=== PATIENT | female | born 1955 | race American Indian/Alaskan Native ===

== ENCOUNTER 2021-11-09 14:24 | Emergency (ER) | payer MEDICARE, OTHER ==
--- NOTE | 2021-11-09 16:14 | Emergency Department Report ---
ED Fall HPI - General Chief Complaint: Fall Stated Complaint: FALL/HYPERTENSION Time Seen by Provider: 11/09/21 15:51 Source: EMS Mode of arrival: Stretcher Limitations: No Limitations - History of Present Illness Initial Comments: 66-year-old female with history of hypertension today says she tripped and fall hit the back of her head. patient denies any loss of conscious. Complaining of laceration to back of head and mild headache. denies having any vomiting. 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: no Place Fall Occurred: street Loss of Consciousness: none Prolonged Down Time?: no Symptoms Prior to Fall: none Location: head Quality: aching Context: tripped/slipped Associated Symptoms: headache - Related Data Allergies Allergy/AdvReac Type Severity Reaction Status Date / Time No Known Allergies Allergy Verified 11/09/21 14:35 ED Review of Systems ROS: Stated complaint: FALL/HYPERTENSION Other details as noted in HPI Constitutional: no symptoms reported Eyes: as per HPI ENT: as per HPI Respiratory: no symptoms reported Cardiovascular: as per HPI Endocrine: no symptoms reported Gastrointestinal: as per HPI Genitourinary: as per HPI Musculoskeletal: as per HPI Skin: as per HPI Neurological: as per HPI Psychiatric: as per HPI Hematological/Lymphatic: as per HPI ED Past Medical Hx - Past Medical History Hx Hypertension: Yes Hx Seizures: Yes - Social History Smoking Status: Never Smoker Substance Use Type: None ED Physical Exam - General Limitations: No Limitations, Physical Limitation General appearance: alert, in no apparent distress - Head Head exam: Present: normocephalic - Eye Eye exam: Present: normal appearance, PERRL Pupils: Present: normal accommodation - ENT ENT exam: Present: normal exam, normal orophraynx, mucous membranes moist - Neck Neck exam: Present: normal inspection, full ROM. Absent: tenderness - Respiratory Respiratory exam: Present: normal lung sounds bilaterally - Cardiovascular Cardiovascular Exam: Present: regular rate, normal rhythm, normal heart sounds - GI/Abdominal GI/Abdominal exam: Present: soft. Absent: distended, tenderness, guarding - Extremities Exam Extremities exam: Present: normal inspection, full ROM - Back Exam Back exam: Present: normal inspection, full ROM - Neurological Exam Neurological exam: Present: alert, oriented X3, CN II-XII intact, normal gait. Absent: motor sensory deficit - Psychiatric Psychiatric exam: Present: normal affect - Skin Skin exam: Present: warm, dry ED Course Vital Signs 11/09/21 11/09/21 11/09/21 14:30 15:00 15:15 Temperature 98.7 F Pulse Rate 100 H 95 H 94 H Respiratory 18 18 12 Rate Blood Pressure 212/146 Blood Pressure 174/138 212/146 [Left] O2 Sat by Pulse 100 99 98 Oximetry 11/09/21 11/09/21 11/09/21 15:30 15:45 16:00 Temperature Pulse Rate 93 H 98 H 100 H Respiratory 14 15 12 Rate Blood Pressure 212/146 194/137 194/137 Blood Pressure [Left] O2 Sat by Pulse 99 Oximetry 11/09/21 11/09/21 11/09/21 16:15 16:38 16:46 Temperature Pulse Rate 100 H 98 H 98 H Respiratory 13 12 12 Rate Blood Pressure 181/139 181/139 181/139 Blood Pressure [Left] O2 Sat by Pulse Oximetry 11/09/21 11/09/21 11/09/21 17:00 18:12 18:15 Temperature Pulse Rate 124 H 114 H 113 H Respiratory 23 14 15 Rate Blood Pressure 181/139 189/144 156/120 Blood Pressure [Left] O2 Sat by Pulse 100 97 Oximetry 11/09/21 19:28 Temperature 98.7 F Pulse Rate 76 Respiratory 20 Rate Blood Pressure Blood Pressure 145/73 [Left] O2 Sat by Pulse 100 Oximetry - Laceration /Wound Repair Head Wound Location: head Wound Length (cm): 4 Wound's Depth, Shape: superficial Wound Explored: no foreign body removed Irrigated w/ Saline (ccs): 10 Anesthesia: 1% Lidocaine Volume Anesthetic (ccs): 3 Wound Debrided: minimal ED Medical Decision Making - Medical Decision Making 67-year-old with history of dementia. Patient family is here and discussed findings of CAT scan. Critical care attestation.: If time is entered above; I have spent that time in minutes in the direct care of this critically ill patient, excluding procedure time. ED Disposition Clinical Impression: Minor head trauma, Occipital scalp laceration Disposition: 01 HOME / SELF CARE / HOMELESS Is pt being admited?: No Does the pt Need Aspirin: No Condition: Stable Instructions: Head Injury, Adult, Laceration Care, Adult, Sutures, Wu, or Adhesive Wound Closure, [id number] Referrals: PRIMARY CARE, [Primary Care Provider] - 3-5 Days
--- NOTE | 2021-11-09 17:00 | Cat Scan Report ---
CT BRAIN: 11/09/2021 INDICATION / CLINICAL INFORMATION: trauma. COMPARISON: None available. FINDINGS: BRAIN/INTRACRANIAL STRUCTURES: Unenhanced CT images of the brain were obtained. There is a 8mm focal area of slightly increased density located in the suprasellar region or anterior recess of the third ventricle. This is an unusual location for acute hemorrhage, and the possibility of soft tissue nodule/mass or aneurysm was be considered. There is a 3 mm hypodensity located along the inferior aspect of the choroidal fissure on the right, uncertain significance. It is unclear whet her this is separate incidental finding. Pronounced diffuse cerebral atrophy is present. Extensive chronic white matter hypoattenuation is not ed. There is evidence of old left frontal cortical ischemic injury as well as ischemic changes in the inferior aspect of the right occipital lobe. EXTRACRANIAL STRUCTURES: Unremarkable. IMPRESSION: 7 mm slightly hyperdense structure in the suprasellar region as described above. Depending on detail s of clinical circumstances and availability prior studies, further evaluation with unenhanced and en hanced MRI of the brain and MR angiography may be helpful. All CT scans at this location are performed using dose reduction to ALARA by means of automated expos ure control. Signer Name: Te Bynum MD Signed: 11/09/2021 4:55 PM Workstation Name: [id number]
[2021-11-09] MEDS ORDERED: HYDROGEN PEROXIDE 118 ML SOLUTION TP ONE (17:02)
[2021-11-09] MEDS ORDERED: LIDOCAINE 2%/EPINEPHRINE 1:100,000 VIAL (20 ML) INFILTRATI ONE (17:58)
[2021-11-09 19:29] VITALS: BP 145/73
== END 2021-11-09 19:32 | disposition home or self-care (01) ==
LOC: ED 14:24
DX: S01.01XA Laceration without foreign body of scalp, initial encounter (principal); S09.90XA Unspecified injury of head, initial encounter; I10 Essential (primary) hypertension; R56.9 Unspecified convulsions; W19.XXXA Unspecified fall, initial encounter; Y93.89 Activity, other specified; Y92.89 Other specified places as the place of occurrence of the external cause; Y99.8 Other external cause status
CPT/HCPCS: 12002; 70450; 99284; J3490; 99283

== ENCOUNTER 2021-11-09 22:51 | Inpatient (IN) | payer MEDICARE ==
--- NOTE | 2021-11-09 23:32 | Emergency Department Report ---
<LION MCGEE - Last Filed: 11/10/21 02:59> ED Altered Mental Status HPI - General Chief Complaint: Altered Mental Status Stated Complaint: UNRESPONDSIVE PUI?: No Time Seen by Provider: 11/09/21 23:07 - History of Present Illness Initial Comments: pt is 66 years old with history of HTN , here today for second visit after a fall earlier today , she was seen here by dr Self and head CT was negative and repaired the head lac and was sent home, , brought her here after wards because she appeared confused and altered 30 [employer], last known normal at 10 pm. pt was found to have facial droop and stroke was alerted - Related Data Home Medications Medication Instructions Recorded Confirmed Last Taken Aspirin [Aspirin BABY CHEW TAB] 81 mg PO DAILY 11/11/21 11/12/21 Unknown Divalproex ER [Depakote ER] 500 mg PO BID 11/11/21 11/12/21 Unknown Losartan [Cozaar] 100 mg PO QDAY 11/11/21 11/12/21 Unknown carvediloL [Coreg] 12.5 mg PO BID 11/11/21 11/12/21 Unknown Atorvastatin Calcium [Lipitor] 80 mg PO QDAY 11/12/21 11/12/21 Unknown Cyanocobalamin [Vitamin B-12] 1,000 mcg PO DAILY 11/12/21 11/12/21 Unknown Melatonin [Melatonin 10MG TAB] 10 mg PO QDAY 11/12/21 11/12/21 Unknown OLANzapine ZYDIS [ZyPREXA Zydis] 5 mg PO QPM 11/12/21 11/12/21 Unknown Thiamine [Vitamin B-1] 100 mg PO QDAY 11/12/21 11/12/21 Unknown Allergies Allergy/AdvReac Type Severity Reaction Status Date / Time No Known Allergies Allergy Verified 11/12/21 11:09 ED Review of Systems Comment: Unobtainable due to pts medical conditions ED Past Medical Hx - Medications Home Medications: Home Medications Medication Instructions Recorded Confirmed Last Taken Type Aspirin [Aspirin BABY CHEW TAB] 81 mg PO DAILY 11/11/21 11/12/21 Unknown History Divalproex ER [Depakote ER] 500 mg PO BID 11/11/21 11/12/21 Unknown History Losartan [Cozaar] 100 mg PO QDAY 11/11/21 11/12/21 Unknown History carvediloL [Coreg] 12.5 mg PO BID 11/11/21 11/12/21 Unknown History Atorvastatin Calcium [Lipitor] 80 mg PO QDAY 11/12/21 11/12/21 Unknown History Cyanocobalamin [Vitamin B-12] 1,000 mcg PO DAILY 11/12/21 11/12/21 Unknown History Melatonin [Melatonin 10MG TAB] 10 mg PO QDAY 11/12/21 11/12/21 Unknown History OLANzapine ZYDIS [ZyPREXA Zydis] 5 mg PO QPM 11/12/21 11/12/21 Unknown History Thiamine [Vitamin B-1] 100 mg PO QDAY 11/12/21 11/12/21 Unknown History ED Physical Exam - General General appearance: other (facial droop noted , non verbal , ) - Head Head exam: Present: other - Neurological Exam Neurological exam: Present: alert (awake but not alert ) - Expanded Neurological Exam Expanded Neurological exam: Present: innattentive, total aphasia Patient oriented to: Absent: person, place, time Speech: Present: total aphasia Best Eye Response ([place]): (3) open to voice Best Motor Response ([place]): (3) flexion to pain Best Verbal Response ([place]): (2) incomprehsible sounds Viral Total: 8 - Lab Data Result diagrams: 11/09/21 23:33 11/09/21 23:33 - EKG Data -: EKG Interpreted by Co EKG shows normal: sinus rhythm Interpretation: LVH - Radiology Data Radiology results: report reviewed, image reviewed - Medical Decision Making stroke alert on arrival , CT head showed hyperdense lesion , CTA negative for LVO, spoke with neurology who recommends TPA if we can rule out bleed, spoke with radiologist dayron , who asked for MRI to rule out bleed, spoke with lillian ( [phone] ) from radiology but no help desk technician tonight till 7 am tomorrow, re spoke with neurology dr Lakhani who said if we cannot rule out bleed won;t be able to give TPA NIHSS score of 18 ED Disposition Clinical Impression: AMS (altered mental status), CVA (cerebral vascular accident) Disposition: ADMITTED INPATIENT Condition: Critical <NORA SELF - Last Filed: 11/19/21 08:15> ED Altered Mental Status HPI - General Source: EMS Mode of arrival: Stretcher Limitations: Altered Mental Status - History of Present Illness Initial Comments: 66-year-old -[place] female who fell earlier during the day sustained scalp laceration which was repaired.. Patient discharged from the emergency approximately 2 hours ago went home and according to patient became more unresponsive responsive. He denies having fever chills or seizure. MD Complaint: altered mental status, decreased responsiveness -: Gradual Severity: moderate Consistency of Symptoms: getting worse Context: trauma Associated Symptoms: denies other symptoms, weakness ED Review of Systems ROS: Stated complaint: UNRESPONDSIVE Other details as noted in HPI Constitutional: no symptoms reported Eyes: as per HPI ENT: as per HPI Respiratory: no symptoms reported Cardiovascular: as per HPI Endocrine: no symptoms reported Gastrointestinal: as per HPI Genitourinary: as per HPI Skin: as per HPI Neurological: headache ED Past Medical Hx - Past Medical History Previous Medical History?: Yes Hx Hypertension: Yes Hx Seizures: Yes - Surgical History Past Surgical History?: No - Social History Smoking Status: Never Smoker Substance Use Type: None ED Physical Exam - General Limitations: Altered Mental Status General appearance: alert, lethargic - Head Head exam: Present: normocephalic, other (4 jarrett back of scalp) - Eye Eye exam: Present: normal appearance, PERRL Pupils: Present: normal accommodation - ENT ENT exam: Present: normal exam, normal orophraynx - Neck Neck exam: Present: normal inspection - Respiratory Respiratory exam: Present: normal lung sounds bilaterally, respiratory distress - Cardiovascular Cardiovascular Exam: Present: regular rate, normal rhythm - GI/Abdominal GI/Abdominal exam: Present: soft - Extremities Exam Extremities exam: Present: normal inspection, full ROM, normal capillary refill - Back Exam Back exam: Present: normal inspection - Neurological Exam Neurological exam: Present: alert, CN II-XII intact, other (Decreased movement right upper extremity minimal right facial droop.) - Psychiatric Psychiatric exam: Present: normal affect - Skin Skin exam: Present: warm ED Course Vital Signs 11/09/21 11/09/21 11/10/21 22:51 23:45 00:01 Temperature 98 F Pulse Rate 88 89 94 H Respiratory 18 14 19 Rate Blood Pressure 152/100 156/105 163/103 O2 Sat by Pulse 100 96 96 Oximetry 11/10/21 11/10/21 11/10/21 00:15 00:31 00:45 Temperature Pulse Rate 95 H 95 H 90 Respiratory 16 19 15 Rate Blood Pressure 162/108 148/100 144/99 O2 Sat by Pulse 97 99 97 Oximetry 11/10/21 11/10/21 11/10/21 01:00 01:15 01:31 Temperature Pulse Rate 89 88 95 H Respiratory 14 14 12 Rate Blood Pressure 143/93 144/87 144/109 O2 Sat by Pulse 97 97 98 Oximetry 11/10/21 11/10/21 11/10/21 01:45 02:00 02:15 Temperature Pulse Rate 100 H 93 H 94 H Respiratory 16 14 15 Rate Blood Pressure 158/113 146/85 149/98 O2 Sat by Pulse 98 99 99 Oximetry 11/10/21 11/10/21 11/10/21 02:30 02:45 03:01 Temperature Pulse Rate 92 H 87 85 Respiratory 12 12 12 Rate Blood Pressure 140/95 122/77 121/85 O2 Sat by Pulse 99 100 99 Oximetry 11/10/21 11/10/21 11/10/21 03:15 03:31 03:45 Temperature Pulse Rate 84 84 80 Respiratory 13 20 21 Rate Blood Pressure 113/72 123/73 119/87 O2 Sat by Pulse 98 99 100 Oximetry 11/10/21 11/10/21 04:00 04:31 Temperature Pulse Rate 86 84 Respiratory 12 12 Rate Blood Pressure 128/75 119/77 O2 Sat by Pulse 100 98 Oximetry - Lab Data Result diagrams: 11/19/21 05:16 11/19/21 05:16 Lab Results 11/09/21 11/09/21 11/09/21 Range/Units 23:33 23:33 23:33 WBC 9.3 (4.5-11.0) K/mm3 RBC 2.99 L (3.65-5.03) M/mm3 Hgb 9.3 L (10.1-14.3) gm/dl Hct 27.7 L (30.3-42.9) % MCV 93 (79-97) fl MCH 31 (28-32) pg MCHC 34 (30-34) % RDW 24.1 H (13.2-15.2) % Plt Count 166 (140-440) K/mm3 Lymph % (Auto) 29.3 (13.4-35.0) % [place] % (Auto) 8.0 H (0.0-7.3) % Eos % (Auto) 1.9 (0.0-4.3) % Baso % (Auto) 0.2 (0.0-1.8) % Lymph # (Auto) 2.7 (1.2-5.4) K/mm3 [place] # (Auto) 0.7 (0.0-0.8) K/mm3 Eos # (Auto) 0.2 (0.0-0.4) K/mm3 Baso # (Auto) 0.0 (0.0-0.1) K/mm3 Seg Neutrophils % 60.6 (40.0-70.0) % Seg Neutrophils # 5.7 (1.8-7.7) K/mm3 PT 15.3 H (12.2-14.9) Sec. INR 1.09 (0.87-1.13) APTT 26.4 (24.2-36.6) Sec. Thrombin Time 18.4 (15.1-19.6) Sec. Sodium 140 (137-145) mmol/L Potassium 4.1 (3.6-5.0) mmol/L Chloride 104.0 (98-107) mmol/L Carbon Dioxide 24 (22-30) mmol/L Anion Gap 16 mmol/L BUN 37 H (7-17) mg/dL Creatinine 1.1 (0.6-1.2) mg/dL Estimated GFR > 60 ml/min BUN/Creatinine Ratio 34 % Glucose 140 H (65-100) mg/dL Calcium 8.5 (8.4-10.2) mg/dL Total Bilirubin 0.20 (0.1-1.2) mg/dL AST 29 (5-40) units/L ALT 41 (7-56) units/L Alkaline Phosphatase 51 (35-129) units/L Total Creatine Kinase 73 (30-135) units/L CK-MB (CK-2) 3.0 (0.0-4.0) ng/mL CK-MB (CK-2) Rel Index 4.1 H (0-4) Troponin T < 0.010 (0.00-0.029) ng/mL Total Protein 5.9 L (6.3-8.2) g/dL Albumin 3.0 L (3.9-5) g/dL Albumin/Globulin Ratio 1.0 % Critical care attestation.: If time is entered above; I have spent that time in minutes in the direct care of this critically ill patient, excluding procedure time. ED Disposition Is pt being admited?: Yes Does the pt Need Aspirin: No
--- NOTE | 2021-11-09 23:48 | Cat Scan Report ---
CT HEAD WITHOUT CONTRAST INDICATION / CLINICAL INFORMATION: CODE STROKE, LKW 2HR AGO, RIGHT SIDE FACIAL DROPPING AND WEAKNESS, [id number]. TECHNIQUE: All CT scans at this location are performed using CT dose reduction for ALARA by means of automated e xposure control. COMPARISON: 11/09/2021 FINDINGS: There is a small focal area of increased hyperdensity located in the suprasellar region/anterior rece ss of the third ventricle. This area appears similar in size and appearance to prior examination. The re are diffuse areas of low-attenuation within the periventricular and central white matter with more extensive areas of low-attenuation within the right occipital lobe and left frontal lobe. Diffuse ce rebral atrophy with compensatory increase in ventricular size. ADDITIONAL FINDINGS: None. IMPRESSION: 1. Small focal area of hyperdensity within the suprasellar region appears similar size is unchanged s filemon prior examination earlier today at 4:00 PM. No new findings are seen. 2. Diffuse periventricular and central white matter areas of low-attenuation suggesting chronic small vessel disease. 3. Large areas of low-attenuation left frontal lobe, periventricular white matter and right occipital lobe. Given patient's symptoms of facial drooping findings are concerning for acute ischemic change. MRI with diffusion is recommended for further evaluation. MRI with diffusion is recommended to [facility] evaluate for acute on chronic ischemic change. Signer Name: Alexander Myrick MD Signed: 11/09/2021 11:44 PM Workstation Name: [id number]
[2021-11-09 23:55] LABS: Basophils % (Auto) 0.2 % (0.0-1.8); Eosinophils # (Auto) 0.2 K/mm3 (0.0-0.4); Eosinophils % (Auto) 1.9 % (0.0-4.3); Hematocrit 27.7 % (30.3-42.9); Hemoglobin 9.3 gm/dl (10.1-14.3); Lymphocytes # (Auto) 2.7 K/mm3 (1.2-5.4); Lymphocytes % (Auto) 29.3 % (13.4-35.0); Mean Corpuscular HGB Conc 34 % (30-34); Mean Corpuscular Volume 93 fl (79-97); Monocytes # (Auto) 0.7 K/mm3 (0.0-0.8); Platelet Count 166 K/mm3 (140-440); Red Blood Count 2.99 M/mm3 (3.65-5.03)
[2021-11-10 00:06] LABS: Red Cell Distribution Width 24.1 % (13.2-15.2)
--- NOTE | 2021-11-10 00:20 | Cat Scan Report ---
CTA HEAD AND NECK WITH CONTRAST HISTORY: Stroke COMPARISON: None. TECHNIQUE: All CT scans at this location are performed using CT dose reduction for ALARA by means of automated exposure control.. 3-D/MIP reformats postprocessed. Percentage stenosis is determined by d irect quantitative measurements of diseased internal carotid artery diameter compared with normal dis sarbjit internal carotid artery reference segments or by criteria similar to NASCET where applicable. FINDINGS: CTA HEAD: Intracranial vertebral arteries: Focal non-opacification in the right vertebral artery at the intracr anial entrance with reconstitution. Basilar artery: No significant abnormality. Posterior cerebral arteries: Multiple areas of flow-limiting stenosis in both GRAPHICS EDIT TECHNICIAN branches. There is also a 3 mm aneurysm at the junction of the left posterior communicating artery and the left GRAPHICS EDIT TECHNICIAN. Intracranial internal carotid arteries: Atherosclerotic plaque in both carotid siphons. Approximately 80% stenosis in both carotid siphons. Anterior cerebral arteries: Several focal high-grade stenoses without definite occlusion. Middle cerebral arteries: Multiple areas of high-grade stenosis seen in the bilateral M1 M2 segments. Small focal occlusion left in 3 branch, reference image 372 of series #2. Dural venous sinuses:Not optimally opacified. No significant abnormality. Additional findings: CTA NECK: Aortic arch: No significant abnormality. Cervical vertebral arteries: Left vertebral artery is developmental and dominant. Common carotid arteries: No significant abnormality. Cervical internal carotid arteries: Mild plaque without significant stenosis. Additional findings: None. IMPRESSION: 1. Multiple flow-limiting stenoses throughout the bilateral intracranial arterial branches. 2. Small focal occlusion of a left M3 branch with immediate reconstitution. 3. Small focal occlusion of the right vertebral artery at the intracranial entrance with immediate re constitution. 4. 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 CODE STROKE: Time of Communication (PROCESS ENVIRONMENTAL TECHNICIAN/CDT): 11:15 PM Licensed Practitioner Receiving Report: Dr. Self Signer Name: Bayron Arias MD Signed: 11/10/2021 12:16 AM Workstation Name: [id number]
--- NOTE | 2021-11-10 00:20 | XRay Report ---
CHEST 1 VIEW 11/09/2021 10:48 PM INDICATION / CLINICAL INFORMATION: sob. COMPARISON: None available. FINDINGS: SUPPORT DEVICES: None. HEART / MEDIASTINUM: No significant abnormality. LUNGS / PLEURA: Mild interstitial process in the right perihilar region extending to the right midlun g No pneumothorax. Signer Name: Alexander Myrick MD Signed: 11/10/2021 12:15 AM Workstation Name: [id number]
--- NOTE | 2021-11-10 00:20 | Cat Scan Report ---
CTA HEAD AND NECK WITH CONTRAST HISTORY: Stroke COMPARISON: None. TECHNIQUE: All CT scans at this location are performed using CT dose reduction for ALARA by means of automated exposure control.. 3-D/MIP reformats postprocessed. Percentage stenosis is determined by d irect quantitative measurements of diseased internal carotid artery diameter compared with normal dis sarbjit internal carotid artery reference segments or by criteria similar to NASCET where applicable. FINDINGS: CTA HEAD: Intracranial vertebral arteries: Focal non-opacification in the right vertebral artery at the intracr anial entrance with reconstitution. Basilar artery: No significant abnormality. Posterior cerebral arteries: Multiple areas of flow-limiting stenosis in both HVAC INSTRUCTOR branches. There is also a 3 mm aneurysm at the junction of the left posterior communicating artery and the left HVAC INSTRUCTOR. Intracranial internal carotid arteries: Atherosclerotic plaque in both carotid siphons. Approximately 80% stenosis in both carotid siphons. Anterior cerebral arteries: Several focal high-grade stenoses without definite occlusion. Middle cerebral arteries: Multiple areas of high-grade stenosis seen in the bilateral M1 M2 segments. Small focal occlusion left in 3 branch, reference image 372 of series #2. Dural venous sinuses:Not optimally opacified. No significant abnormality. Additional findings: CTA NECK: Aortic arch: No significant abnormality. Cervical vertebral arteries: Left vertebral artery is developmental and dominant. Common carotid arteries: No significant abnormality. Cervical internal carotid arteries: Mild plaque without significant stenosis. Additional findings: None. IMPRESSION: 1. Multiple flow-limiting stenoses throughout the bilateral intracranial arterial branches. 2. Small focal occlusion of a left M3 branch with immediate reconstitution. 3. Small focal occlusion of the right vertebral artery at the intracranial entrance with immediate re constitution. 4. 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 CODE STROKE: Time of Communication (TEXTILE SCREEN PRINTER/CDT): 11:15 PM Licensed Practitioner Receiving Report: Dr. Self Signer Name: Bayron Arias MD Signed: 11/10/2021 12:16 AM Workstation Name: [id number]
[2021-11-10 00:22] LABS: Alanine Aminotransferase 41 units/L (7-56); BUN/Creatinine Ratio 34; Blood Urea Nitrogen 37 mg/dL (7-17); Calcium 8.5 mg/dL (8.4-10.2); Hemolysis Index 2
[2021-11-10 00:41] LABS: INR 1.09 (0.87-1.13)
[2021-11-10 00:42] LABS: Partial Thromboplastin Time 26.4 Sec. (24.2-36.6); Thrombin Time 18.4 Sec. (15.1-19.6)
--- NOTE | 2021-11-10 00:57 | Consultation ---
History of Present Illness - Reason for Consult Consult date: 11/10/21 - History of Present Illness [facility] Consult Note # Demographics Consult Type: Acute Stroke Level 1 (0-4.5 hrs) Patient Location: Emergency Room First Name: DAMIEN Last Name: KARI Date of : 1955 Age: 66 Gender: Female Facility: [facility] Time of Initial Page ( Time): 11/10/2021, 00:32 Time of Return Call ( Time): 11/10/2021, 00:32 # HPI History: 66yo woman who was eating. She then had confusion, onset at around 10PM. She went limp and her right side is weaker than usual. She fell earlier and LOC episode this morning with head trauma. Possible Thrombolytic candidate: not on warfarin or NOACs no intracranial hemorrhage history no recent major surgery no known active major internal bleeding no known blood disorders # Scores Time of exam and NIHSS ( Time): 11/10/2021, 00:36 Level of Consciousness 1a: [3] = Responds only with reflex motor or unresponsive LOC Questions 1b: [2] = Answers neither correctly LOC Commands 1c: [2] = Performs neither correctly Best Gaze 2: [1] = Partial gaze palsy Visual 3: [0] = No visual loss Facial Palsy 4: [0] = Normal symmetrical movements Motor Arm Left 5a: [0] = No drift Motor Arm Right 5b: [2] = Some effort against gravity Motor Leg Left 6a: [0] = No drift Motor Leg Right 6b: [3] = No effort against gravity Limb Ataxia 7: [0] = Absent Sensory 8: [0] = Normal Best Language 9: [3] = Mute Dysarthria 10: [2] = Severe dysarthria Extinction and Inattention 11: [0] = No abnormality NIHSS Total: 18 # Exam Vitals: vital signs reviewed SBP: 148 DBP: 100 # PMH-FH-SH Past Medical History: hypertension # Data Head CT: no bleed preliminarily reviewed by me, please refer to radiology read for official reading CTA Head: high grade stenosis bilateral MCAs. left M3 occlusion # Assessment Impression: Ischemic Stroke (Acute) # Plan Thrombolytic/Intervention: IV Thrombolysis IF radiology feels confident there is no bleed on the CT head of the brain Thrombolytic Dosing: IV alteplase 0.9 mg/kg, max dose 90 mg; 10% of dose given over 1 minute IVP, remaining 90% given as infusion over 1 hour Intraarterial Exclusion: clot too distal Time IV Thrombolytic Recommended ( Time): 11/10/2021, 00:53 Target Blood Pressure: SBP < 180 DBP < 105 Labs: lipid panel Imaging: (urgency: routine): MRI Brain without contrast Diagnostic Test: echo without bubble study Therapy/Evaluation: NPO until swallow evaluation PT/OT evaluation speech/swallow consultation DVT Prophylaxis: SCD Thrombolytic Administration Recommendations: I have collected independent history specific to time last normal or last known well. We have collaborated with the ED provider and at this time, we have the most current timeline with the information that is available. BP goal< 180/105 for 24hrs post Thrombolytic administration Use Labetolol 10-20mg IV prn or Nicardipine gtt to maintain BP parameters No antiplatelets or anticoagulants for next 24 hrs unless indicated for emergent IA procedure or other life threatening situation ICU admission Call back if there is any decline in neurological condition Other: LDL < 70 telemetry monitoring I have discussed my recommendations with the referring provider Disposition: transfer to ICU # Demographics First Name: DAMIEN Last Name: KARI Facility: [facility] Medications and Allergies Allergies Allergy/AdvReac Type Severity Reaction Status Date / Time No Known Allergies Allergy Verified 11/09/21 14:35 Exam - Constitutional Vitals: Temp Pulse Resp BP Pulse Ox 98 F 88 18 152/100 100 11/09/21 22:51 11/09/21 22:51 11/09/21 22:51 11/09/21 22:51 11/09/21 22:51 Results - Labs CBC & Chem 7: 11/09/21 23:33 11/09/21 23:33 Labs: Abnormal lab results 11/09/21 11/09/21 11/09/21 Range/Units 23:33 23:33 23:33 RBC 2.99 L (3.65-5.03) M/mm3 Hgb 9.3 L (10.1-14.3) gm/dl Hct 27.7 L (30.3-42.9) % RDW 24.1 H (13.2-15.2) % Gem % (Auto) 8.0 H (0.0-7.3) % PT 15.3 H (12.2-14.9) Sec. BUN 37 H (7-17) mg/dL Glucose 140 H (65-100) mg/dL CK-MB (CK-2) Rel Index 4.1 H (0-4) Total Protein 5.9 L (6.3-8.2) g/dL Albumin 3.0 L (3.9-5) g/dL
[2021-11-10] MEDS ORDERED: ONDANSETRON 4 MG/2 ML INJ IV PRN (03:15)
[2021-11-10] MEDS ORDERED: MORPHINE 2 MG/1 ML INJ IV PRN (03:15)
[2021-11-10] MEDS ORDERED: MORPHINE 4 MG/1 ML INJ IV PRN (03:15)
[2021-11-10] MEDS ORDERED: ALBUTEROL 2.5 MG/3 ML NEBU IH PRN ×2 (03:15→10:37)
--- NOTE | 2021-11-10 03:24 | History and Physical Report ---
History of Present Illness Date of examination: 11/10/21 Date of admission: 11/10/21 Chief complaint: Altered mental status CVA History of present illness: 66-year-old -Thai female who fell earlier during the day sustained scalp laceration which was repaired. Patient discharged from the emergency approximately 2 hours ago went home and according to patient became more confusion and unresponsive responsive. pt was found to have facial droop and stroke was alerted CT scan of the head shows a small focal area of hyperdensity within the supras ellar region appears similar to the size is unchanged since. Examination. Diffuse periventricular and central white matter areas of low-attenuation suggesting chronic small vessel disease. Large areas of low-attenuation left frontal lobe, periventricular white matter and right occipital lobe. Given patient's symptoms of facial drooping findings are concerning for acute ischemic change CTA negative for LVO, spoke with neurology who recommends TPA if we can rule out bleed, spoke with radiologist dayron , who asked for MRI to rule out bleed, spoke with lillian ) from radiology but no wireless technician tonight till 7 am tomorrow, re spoke with neurology dr Lakhani who said if we cannot rule out bleed won;t be able to give TPA Past History Past Medical History: hypertension, seizures Past Surgical History: No surgical history Social history: no significant social history Family history: hypertension Medications and Allergies Allergies Allergy/AdvReac Type Severity Reaction Status Date / Time No Known Allergies Allergy Verified 11/09/21 14:35 Review of Systems All systems: negative Constitutional: other (Confusion, right facial droop ) Exam - Constitutional Vitals: Temp Pulse Resp BP Pulse Ox 98 F 95 H 12 144/109 98 11/09/21 22:51 11/10/21 01:31 11/10/21 01:31 11/10/21 01:31 11/10/21 01:31 General appearance: Present: no acute distress, well-nourished - EENT Eyes: Present: PERRL ENT: hearing intact, clear oral mucosa - Neck Neck: Present: supple, normal ROM - Respiratory Respiratory effort: normal Respiratory: bilateral: CTA - Cardiovascular Heart Sounds: Present: S1 & S2. Absent: rub, click - Extremities Extremities: pulses symmetrical, No edema Peripheral Pulses: within normal limits - Abdominal General gastrointestinal: Present: soft, non-tender, non-distended, normal bowel sounds Female genitourinary: Present: normal - Integumentary Integumentary: Present: clear, warm, dry - Musculoskeletal Musculoskeletal: gait normal, strength equal bilaterally - Neurologic Neurologic: CNII-XII intact, moves all extremities, other (Confusion, right facial droop) HEART Score - HEART Score Troponin: Troponin T < 0.010 ng/mL (0.00-0.029) 11/09/21:33 Results - Labs CBC & Chem 7: 11/09/21 23:33 11/09/21 23:33 Labs: Laboratory Last Values WBC 9.3 K/mm3 (4.5-11.0) 11/09/21 23: RBC 2.99 M/mm3 (3.65-5.03) L 11/09/21: Hgb 9.3 gm/dl (10.1-14.3) L 11/09/21 23: Hct 27.7 % (30.3-42.9) L 11/09/21 23: MCV 93 fl (79-97) 11/09/21 23: MCH 31 pg (28-32) 11/09/21 23: MCHC 34 % (30-34) 11/09/21 23: RDW 24.1 % (13.2-15.2) H 11/09/21 23:33 Plt Count 166 K/mm3 (140-440) 11/09/21 23:33 Lymph % (Auto) 29.3 % (13.4-35.0) 11/09/21 23: [place] % (Auto) 8.0 % (0.0-7.3) H 11/09/21 23:33 Eos % (Auto) 1.9 % (0.0-4.3) 11/09/21 23: Baso % (Auto) 0.2 % (0.0-1.8) 11/09/21 23: Lymph # (Auto) 2.7 K/mm3 (1.2-5.4) 11/09/21 23: [place] # (Auto) 0.7 K/mm3 (0.0-0.8) 11/09/21 23: Eos # (Auto) 0.2 K/mm3 (0.0-0.4) 11/09/21 23:33 Baso # (Auto) 0.0 K/mm3 (0.0-0.1) 11/09/21 23:33 Seg Neutrophils % 60.6 % (40.0-70.0) 11/09/21 23:33 Seg Neutrophils # 5.7 K/mm3 (1.8-7.7) 11/09/21 23:33 PT 15.3 Sec. (12.2-14.9) H 11/09/21 23:33 INR 1.09 (0.87-1.13) 11/09/21 23:33 APTT 26.4 Sec. (24.2-36.6) 11/09/21 23:33 Thrombin Time 18.4 Sec. (15.1-19.6) 11/09/21 23:33 Sodium 140 mmol/L (137-145) 11/09/21 23:33 Potassium 4.1 mmol/L (3.6-5.0) 11/09/21 23:33 Chloride 104.0 mmol/L (98-107) 11/09/21 23:33 Carbon Dioxide 24 mmol/L (22-30) 11/09/21 23:33 Anion Gap 16 mmol/L 11/09/21 23:33 BUN 37 mg/dL (7-17) H 11/09/21 23:33 Creatinine 1.1 mg/dL (0.6-1.2) 11/09/21 23:33 Estimated GFR > 60 ml/min 11/09/21 23:33 BUN/Creatinine Ratio 34 % 11/09/21 23:33 Glucose 140 mg/dL (65-100) H 11/09/21 23:33 Calcium 8.5 mg/dL (8.4-10.2) 11/09/21 23:33 Total Bilirubin 0.20 mg/dL (0.1-1.2) 11/09/21 23:33 AST 29 units/L (5-40) 11/09/21 23:33 ALT 41 units/L (7-56) 11/09/21 23:33 Alkaline Phosphatase 51 units/L (35-129) 11/09/21 23:33 Total Creatine Kinase 73 units/L (30-135) 11/09/21 23:33 CK-MB (CK-2) 3.0 ng/mL (0.0-4.0) 11/09/21 23:33 CK-MB (CK-2) Rel Index 4.1 (0-4) H 11/09/21 23:33 Troponin T < 0.010 ng/mL (0.00-0.029) 11/09/21 23:33 Total Protein 5.9 g/dL (6.3-8.2) L 11/09/21 23:33 Albumin 3.0 g/dL (3.9-5) L 11/09/21 23:33 Albumin/Globulin Ratio 1.0 % 11/09/21 23:33 - Imaging and Cardiology CT Scan - head: report reviewed Assessment and Plan VTE prophylaxis?: Mechanical Plan of care discussed with patient/family: Yes - Patient Problems (1) CVA (cerebral vascular accident) Current Visit: Yes Status: Acute Plan to address problem: Admit the patient to the medical telemetry. Lipitor 40 mg p.o. daily. Will hold of the aspirin until MRI of the brain is done. MRI of the brain with and without contrast. MRI of the brain and neck with and without contrast. Neurology evaluation. Echocardiogram. PT OT speech evaluation (2) Hypertension Current Visit: Yes Status: Acute Plan to address problem: Labetalol 10 mg IV every 6 hours as needed. We continue the home medication (3) Seizure Current Visit: Yes Status: Acute Plan to address problem: We will continue the home seizure medication. Neurology evaluation. MRI of the brain with and without contrast (4) Minor head trauma Current Visit: No Status: Acute Plan to address problem: Patient is a fall earlier today. We will do a MRI of the brain. Neurology evaluation. We will monitor the patient closely (5) Occipital scalp laceration Current Visit: No Status: Acute Plan to address problem: Patient occipital scalp laceration is repaired by the ER physician. We will monitor the patient closely (6) Metabolic encephalopathy Current Visit: Yes Status: Acute Plan to address problem: Most likely secondary to CVA and fall.Lipitor 40 mg p.o. daily. Will hold of the aspirin until MRI of the brain is done. MRI of the brain with and without contrast. MRI of the brain and neck with and without contrast. Neurology evaluation. Echocardiogram. PT OT speech evaluation (7) DVT prophylaxis Current Visit: Yes Status: Acute Plan to address problem: SCD for DVT prophylaxis. Pepcid 20 mg p.o. twice daily for GI prophylaxis. Patient is a full code
[2021-11-10] MEDS: D5W/0.9% NACL 1,000 ML IV SCH ×2 (05:15→16:26)
[2021-11-10] MEDS ORDERED: IPRATROPIUM/ALBUTEROL SULFATE 3 ML AMPUL.NEB IH SCH (08:00)
--- NOTE | 2021-11-10 09:16 | Magnetic Resonance Report ---
MRI BRAIN WITHOUT CONTRAST, MRA HEAD WITHOUT CONTRAST INDICATION / CLINICAL INFORMATION: stroke. TECHNIQUE: Multiplanar, multi sequential MRI images of the brain. Routine MRA of the head is performed. 3-D/MIP reformats postprocessed. Percentage stenosis is determined by direct quantitative measurements of di stal internal carotid artery diameter compared with normal reference segments or by criteria similar to NASCET where applicable. COMPARISON: Previous exam on 11/09/2021 FINDINGS: MR BRAIN: BRAIN / INTRACRANIAL CONTENTS: Small focus of acute infarct is seen in the left frontal opercular reg ion. No hemorrhage or adverse mass effect. Stable severe confluent chronic small vessel ischemic bolanos ge in the cerebral white matter. Stable chronic infarcts in the right parieto-occipital region and le ft frontal lobe. Stable moderate global atrophy. CRANIOCERVICAL JUNCTION: No significant abnormality. VASCULAR FLOW-VOIDS: No significant abnormality. ORBITS: No significant abnormality of visualized orbits. SINUSES / MASTOIDS: No significant abnormality of visualized sinuses and mastoid air cells. ADDITIONAL FINDINGS: None. MRA HEAD: Intracranial vertebral arteries: No significant abnormality. Basilar artery: No significant abnormality. Posterior cerebral arteries: No significant abnormality. Intracranial internal carotid arteries: No significant abnormality. Anterior cerebral arteries: No significant abnormality. Middle cerebral arteries: No significant abnormality. Additional findings: None. IMPRESSION: 1. Tiny focus of acute infarct in the left frontal opercular region. No hemorrhage or adverse mass ef fect. Signer Name: Bayron Arias MD Signed: 11/10/2021 9:11 AM Workstation Name: [id number]
[2021-11-10] MEDS: ASPIRIN 325 MG TAB PO SCH (10:06)
[2021-11-10] MEDS: FAMOTIDINE 20 MG/2 ML INJ IV SCH ×2 (10:07→22:18)
[2021-11-10] MEDS: METOPROLOL TARTRATE 5 MG/5 ML INJ IV SCH (18:57)
[2021-11-10] MEDS: cloNIDine TTS 0.3 MG/24 HR PATCH TD SCH (21:01)
[2021-11-11] MEDS: METOPROLOL TARTRATE 5 MG/5 ML INJ IV SCH ×4 (00:01→18:55)
[2021-11-11] MEDS: hydrALAZINE 20 MG/1 ML INJ IV PRN ×2 (03:55→18:56)
[2021-11-11] MEDS: D5W/0.9% NACL 1,000 ML IV SCH ×2 (05:02→16:14)
--- NOTE | 2021-11-11 08:42 | Event Note ---
Date: 11/10/21 Patient was evaluated, and she was found to be hemodynamically stable. #Acute ischemic CVA #Acute metabolic encephalopathy Patient evaluated by telemetry neurology in the ED, and she was now found to be a candidate for tPA. Unremarkable CT head noncontrast. 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 MRI brain without contrast revealing "tiny focus of acute infarct in the left frontal opercular region. No hemorrhage or adverse mass-effect." Pending TTE to evaluate for possible PFO. Pending lipid profile and hemoglobin A1c. Continue aspirin 325 mg daily per rectum until the patient is cleared by speech therapy. Patient can be started on atorvastatin 40 mg daily when she can tolerate p.o. Neurology consulted; pending recs. Physical therapy, Occupational Therapy, and speech therapy consulted; pending recs. #Hypertension - home medications: Unknown - current medications: IV metoprolol 5 mg every 6 hours scheduled. Can transition to orals once patient is cleared by speech. - SBP goal <160 and DBP goal <90 while inpatient - continue to monitor #Seizure disorder No history of antiepileptics. Starting IV Keppra 500 mg twice daily until further information is provided. #Ground-level fall #Occipital scalp laceration Unremarkable imaging. Laceration repaired in the ED. Continue analgesics as needed. #Mild protein caloric malnutrition Albumin 3.0 Currently holding dietary supplementation as the patient is n.p.o. and pending speech evaluation in the setting of acute ischemic CVA. #Coordination of CARE time: 30 minutes. Total visit time equals 30 or more minutes with greater than 50% spent [id number] on coordination of care and counseling. #Advanced care planning -Disease education conducted, care plan discussed, diagnoses discussed, prog nosis discussed, and patient acknowledges understanding with care plan -Time: +30 min
--- NOTE | 2021-11-11 08:48 | Progress Note ---
Assessment and Plan Assessment and plan: #Acute ischemic CVA #Acute metabolic encephalopathy Patient evaluated by telemetry neurology in the ED, and she was now found to be a candidate for tPA. Unremarkable CT head noncontrast. CT angio head and neck revealing "multiple flow-limiting stenoses throughout the bilateral intracranial arterial branches; small focal occlusion of left M3 branch with immediate reconstitution; small focal occlusion of the right vertebral artery at the intracranial entrance with immediate reconstitution; tiny 3 mm aneurysm at the junction of the left JOB MOLDER and left posterior communicating artery". MRI brain without contrast revealing "tiny focus of acute infarct in the left frontal opercular region. No hemorrhage or adverse mass-effect." Pending TTE to evaluate for possible PFO. Pending lipid profile and hemoglobin A1c. Continue aspirin 325 mg daily per rectum until the patient is cleared by speech therapy. Patient can be started on atorvastatin 40 mg daily when she can tolerate p.o. Neurology consulted; pending recs. Physical therapy, Occupational Therapy, and speech therapy consulted; pending recs. #Hypertension - home medications: Unknown - current medications: IV metoprolol 5 mg every 6 hours scheduled. Can transition to orals once patient is cleared by speech. - SBP goal <160 and DBP goal <90 while inpatient - continue to monitor #Seizure disorder No history of antiepileptics. Starting IV Keppra 500 mg twice daily until further information is provided. #Ground-level fall #Occipital scalp laceration Unremarkable imaging. Laceration repaired in the ED. Continue analgesics as needed. #Mild protein caloric malnutrition Albumin 3.0 Currently holding dietary supplementation as the patient is n.p.o. and pending speech evaluation in the setting of acute ischemic CVA. #Advanced care planning -Disease education conducted, care plan discussed, diagnoses discussed, prognosis discussed, and patient acknowledges understanding with care plan -Time: +30 min Disposition Plan: Continue medical management Total Time Spent with Patient (Minutes): 45 min History Interval history: No acute events overnight. Hospitalist Physical - Constitutional Vitals: Temp Pulse Resp BP Pulse Ox 98.7 F 94 H 18 155/108 100 11/11/21 08:09 11/11/21 08:09 11/11/21 08:09 11/11/21 08:09 11/11/21 08:09 General appearance: Present: no acute distress, well-nourished - EENT Eyes: Present: PERRL, EOM intact ENT: hearing intact, clear oral mucosa, dentition normal - Neck Neck: Present: supple, normal ROM - Respiratory Respiratory effort: normal Respiratory: bilateral: CTA - Cardiovascular Rhythm: regular Heart Sounds: Present: S1 & S2 - Extremities Extremities: no ischemia, pulses intact, pulses symmetrical, No edema, normal temperature, normal color Peripheral Pulses: within normal limits - Abdominal General gastrointestinal: soft, non-tender, non-distended, normal bowel sounds - Integumentary Integumentary: Present: clear, warm, dry - Psychiatric Psychiatric: appropriate mood/affect - Neurologic Neurologic: other (right sided weakness ) - Allied Health Allied health notes reviewed: nursing HEART Score - HEART Score Troponin: Troponin T < 0.010 ng/mL (0.00-0.029) 11/09/21 23:33 Results - Labs CBC & Chem 7: 11/09/21 23:33 11/09/21 23:33 Labs: Laboratory Last Values WBC 9.3 K/mm3 (4.5-11.0) 11/09/21 23:33 RBC 2.99 M/mm3 (3.65-5.03) L 11/09/21 23:33 Hgb 9.3 gm/dl (10.1-14.3) L 11/09/21 23:33 Hct 27.7 % (30.3-42.9) L 11/09/21 23:33 MCV 93 fl (79-97) 11/09/21 23:33 MCH 31 pg (28-32) 11/09/21 23:33 MCHC 34 % (30-34) 11/09/21 23:33 RDW 24.1 % (13.2-15.2) H 11/09/21 23:33 Plt Count 166 K/mm3 (140-440) 11/09/21 23:33 Lymph % (Auto) 29.3 % (13.4-35.0) 11/09/21 23:33 [place] % (Auto) 8.0 % (0.0-7.3) H 11/09/21 23:33 Eos % (Auto) 1.9 % (0.0-4.3) 11/09/21 23:33 Baso % (Auto) 0.2 % (0.0-1.8) 11/09/21 23:33 Lymph # (Auto) 2.7 K/mm3 (1.2-5.4) 11/09/21 23:33 [place] # (Auto) 0.7 K/mm3 (0.0-0.8) 11/09/21 23:33 Eos # (Auto) 0.2 K/mm3 (0.0-0.4) 11/09/21 23:33 Baso # (Auto) 0.0 K/mm3 (0.0-0.1) 11/09/21 23:33 Seg Neutrophils % 60.6 % (40.0-70.0) 11/09/21 23:33 Seg Neutrophils # 5.7 K/mm3 (1.8-7.7) 11/09/21 23:33 PT 15.3 Sec. (12.2-14.9) H 11/09/21 23:33 INR 1.09 (0.87-1.13) 11/09/21 23:33 APTT 26.4 Sec. (24.2-36.6) 11/09/21 23:33 Thrombin Time 18.4 Sec. (15.1-19.6) 11/09/21 23:33 Sodium 140 mmol/L (137-145) 11/09/21 23:33 Potassium 4.1 mmol/L (3.6-5.0) 11/09/21 23:33 Chloride 104.0 mmol/L (98-107) 11/09/21 23:33 Carbon Dioxide 24 mmol/L (22-30) 11/09/21 23:33 Anion Gap 16 mmol/L 11/09/21 23:33 BUN 37 mg/dL (7-17) H 11/09/21 23:33 Creatinine 1.1 mg/dL (0.6-1.2) 11/09/21 23:33 Estimated GFR > 60 ml/min 11/09/21 23:33 BUN/Creatinine Ratio 34 % 11/09/21 23:33 Glucose 140 mg/dL (65-100) H 11/09/21 23:33 POC Glucose 120 mg/dL (70-105) H 11/11/21 00:07 Calcium 8.5 mg/dL (8.4-10.2) 11/09/21 23:33 Total Bilirubin 0.20 mg/dL (0.1-1.2) 11/09/21 23:33 AST 29 units/L (5-40) 11/09/21 23:33 ALT 41 units/L (7-56) 11/09/21 23:33 Alkaline Phosphatase 51 units/L (35-129) 11/09/21 23:33 Total Creatine Kinase 73 units/L (30-135) 11/09/21 23:33 CK-MB (CK-2) 3.0 ng/mL (0.0-4.0) 11/09/21 23:33 CK-MB (CK-2) Rel Index 4.1 (0-4) H 11/09/21 23:33 Troponin T < 0.010 ng/mL (0.00-0.029) 11/09/21 23:33 Total Protein 5.9 g/dL (6.3-8.2) L 11/09/21 23:33 Albumin 3.0 g/dL (3.9-5) L 11/09/21 23:33 Albumin/Globulin Ratio 1.0 % 11/09/21 23:33 Chowdary/IV: Voiding Method External Female Catheter Active Medications - Current Medications Current Medications: Generic Name Dose Route Start Last Admin Trade Name Freq PRN Reason Stop Dose Admin Acetaminophen 650 mg 11/10/21 03:15 Acetaminophen 325 Mg Tab PO Q4H PRN Pain MILD(1-3)/Fever >100.5/PEREZ Albuterol 2.5 mg 11/10/21 10:37 Albuterol 2.5 Mg/3 Ml Nebu IH Q4HRT PRN Shortness Of Breath Aspirin 325 mg 11/10/21 10:00 11/10/21 10:06 Aspirin 325 Mg Tab PO Not Given QDAY HUNTER Atorvastatin Calcium 40 mg 11/10/21 22:00 11/10/21 22:18 Atorvastatin 40 Mg Tab PO Not Given QHS HUNTER Clonidine HCl 0.3 mg 11/10/21 21:00 11/10/21 21:01 Clonidine Tts 0.3 Mg/24 Hr Patch TD 0.3 mg Sa HUNTER Administration Famotidine 20 mg 11/10/21 10:00 11/10/21 22:18 Famotidine 20 Mg/2 Ml Inj IV 20 mg BID HUNTER Administration Hydralazine HCl 10 mg 11/10/21 20:26 11/11/21 03:55 Hydralazine 20 Mg/1 Ml Inj IV 10 mg Q4HR PRN Administration Blood Pressure Dextrose/Sodium Chloride 1,000 mls @ 100 mls/hr 11/10/21 04:00 11/11/21 05:02 D5ns IV 100 mls/hr DIRECT HUNTER Administration Metoprolol Tartrate 5 mg 11/10/21 19:00 11/11/21 05:02 Metoprolol Tartrate 5 Mg/5 Ml Inj IV 5 mg Q6HR HUNTER Administration Morphine Sulfate 2 mg 11/10/21 03:15 Morphine 2 Mg/1 Ml Inj IV Q4H PRN Pain, Moderate (4-6) Morphine Sulfate 4 mg 11/10/21 03:15 Morphine 4 Mg/1 Ml Inj IV Q4H PRN Pain , Severe (7-10) Ondansetron HCl 4 mg 11/10/21 03:15 Ondansetron 4 Mg/2 Ml Inj IV Q8H PRN Nausea And Vomiting Sodium Chloride 10 ml 11/10/21 10:00 11/11/21 00:01 Sodium Chloride 0.9% 10 Ml Flush Syringe IV 10 ml BID HUNTER Administration Sodium Chloride 10 ml 11/10/21 03:15 Sodium Chloride 0.9% 10 Ml Flush Syringe IV PRN PRN LINE FLUSH
[2021-11-11] MEDS: ASPIRIN 325 MG TAB PO SCH (10:00)
[2021-11-11] MEDS: FAMOTIDINE 20 MG/2 ML INJ IV SCH ×2 (10:08→22:02)
[2021-11-11] MEDS: levETIRAcetam 500 MG in DEXTROSE 5% IN WATER 100 ML IV SCH ×2 (10:40→22:02)
--- NOTE | 2021-11-11 12:39 | XRay Report ---
ABDOMEN, SINGLE VIEW INDICATION / CLINICAL INFORMATION: dobhoff placement. COMPARISON: None available. FINDINGS: The tip of the enteric feeding tube is within the midportion of the stomach and is in satisfactory po sition. There is significant motion on the abdominal radiograph limiting further evaluation. IMPRESSION: Satisfactory position of enteric feeding tube. Signer Name: Miladis Hill MD Signed: 11/11/2021 12:34 PM Workstation Name: [id number]
[2021-11-11 12:44] LABS: BUN/Creatinine Ratio 16; Blood Urea Nitrogen 14 mg/dL (7-17); Calcium 9.3 mg/dL (8.4-10.2); Hemolysis Index 4
[2021-11-11 12:50] LABS: Hematocrit 34.7 % (30.3-42.9); Hemoglobin 11.9 gm/dl (10.1-14.3); Mean Corpuscular HGB Conc 34 % (30-34); Mean Corpuscular Volume 91 fl (79-97); Platelet Count 205 K/mm3 (140-440); Red Blood Count 3.82 M/mm3 (3.65-5.03)
[2021-11-11 12:51] LABS: Red Cell Distribution Width 23.2 % (13.2-15.2)
--- NOTE | 2021-11-11 14:20 | XRay Report ---
ABDOMEN, SINGLE VIEW INDICATION / CLINICAL INFORMATION: dobhoff, patient pulled out previous. COMPARISON: Abdominal radiograph earlier today FINDINGS: Enteric feeding tube is present. The tip is within the proximal portion of the stomach and should be advanced 4 to 5 cm. Mild to moderate amount of stool seen within the colon. Bowel gas pattern is grossly normal otherwise . IMPRESSION: Tip of the feeding tube is just within the proximal portion of the stomach. Please advanc e 4-5 cm. Signer Name: Miladis Hill MD Signed: 11/11/2021 2:16 PM Workstation Name: [id number]
--- NOTE | 2021-11-11 14:39 | Electrocardiograph Report ---
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
[2021-11-11 19:01] LABS: Band Neutrophils # (Manual) 0.1 K/mm3; Basophils % (Manual) 0 % (0.0-1.8); Eosinophils % (Manual) 0 % (0.0-4.3); Total Cells Counted 100
[2021-11-11 19:02] LABS: Anisocytosis 3+; Hypochromasia 1+
[2021-11-11 19:03] LABS: Platelet Estimate Consistent w Auto
--- NOTE | 2021-11-11 21:13 | XRay Report ---
ABDOMEN 1 VIEW 11/11/2021 INDICATION / CLINICAL INFORMATION: Dobhoff advancement. COMPARISON: 11/11/2021 FINDINGS: TUBES / LINES: Weighted enteric tube terminates within the stomach. BOWEL GAS PATTERN: No significant abnormality. FREE AIR / EXTRALUMINAL GAS: None seen. ADDITIONAL FINDINGS: No significant additional findings. IMPRESSION: 1. Weighted enteric tube terminates within the stomach. Signer Name: Joshua Echeverria DO Signed: 11/11/2021 9:08 PM Workstation Name: [id number]
[2021-11-12] MEDS: METOPROLOL TARTRATE 5 MG/5 ML INJ IV SCH ×2 (00:42→05:42)
--- NOTE | 2021-11-12 01:21 | XRay Report ---
ABDOMEN 1 VIEW 11/12/2021 12:00 AM INDICATION / CLINICAL INFORMATION: new Ng tube placed. COMPARISON: 11/11/2021 FINDINGS: TUBES / LINES: NG tube is within the stomach BOWEL GAS PATTERN: Constipation seen throughout. Nonspecific bowel gas throughout the small bowel and large bowel. FREE AIR / EXTRALUMINAL GAS: None. Signer Name: Alexander Myrick MD Signed: 11/12/2021 1:17 AM Workstation Name: [email or web address]
[2021-11-12] MEDS: hydrALAZINE 20 MG/1 ML INJ IV PRN (04:29)
[2021-11-12] MEDS: D5W/0.9% NACL 1,000 ML IV SCH (05:42)
[2021-11-12] MEDS ORDERED: SODIUM BICARBONATE 325 MG TAB FEEDTUBE PRN (09:00)
[2021-11-12] MEDS ORDERED: LIPASE 10,500/PROTEASE 25,000/AMYLASE 43,750 (UNITS) DR CAP FEEDTUBE PRN (09:00)
[2021-11-12] MEDS ORDERED: SIMPLE SYRUP 15 ML FEEDTUBE PRN ×2 (09:00)
[2021-11-12] MEDS ORDERED: NON-FORMULARY EACH (Amlodipine 10 MG) PO SCH (10:00)
[2021-11-12] MEDS ORDERED: NON-FORMULARY EACH (Losartan [Cozaar] 100 MG Tablet) PO SCH (10:00)
[2021-11-12] MEDS ORDERED: NON-FORMULARY EACH (Divalproex Er 500 MG) PO SCH (10:00)
[2021-11-12] MEDS ORDERED: DIVALPROEX ER 500 MG TAB PO SCH (11:00)
[2021-11-12] MEDS: ASPIRIN 325 MG TAB PO SCH (12:07)
[2021-11-12] MEDS: FAMOTIDINE 20 MG/2 ML INJ IV SCH (12:08)
[2021-11-12] MEDS: carvediloL 12.5 MG TAB PO SCH ×3 (12:19→22:14)
[2021-11-12] MEDS: LOSARTAN 50 MG TAB PO SCH (12:22)
[2021-11-12] MEDS: amLODIPine 10 MG TAB PO SCH (12:23)
--- NOTE | 2021-11-12 14:30 | Progress Note ---
Assessment and Plan Assessment and plan: #Acute ischemic CVA #Acute metabolic encephalopathy Patient evaluated by telemetry neurology in the ED, and she was now found to be a candidate for tPA. Unremarkable CT head noncontrast. 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 MRI brain without contrast revealing "tiny focus of acute infarct in the left frontal opercular region. No hemorrhage or adverse mass-effect." TTE (11/10/2021) revealing EF 55-60% with normal-sized LV, mild concentric LVH, septal hypertrophy, abnormal diastolic function, normal-sized RV, normal RV systolic function, normal LA size, normal RA, no evidence of ASD or PFO. Hemoglobin A1c 5.4. Pending lipid profile. Continue aspirin 325 mg daily per rectum until the patient is cleared by speech therapy. Patient can be started on atorvastatin 40 mg daily when she can tolerate p.o. Neurology consulted; pending recs. Physical therapy, Occupational Therapy consulted; pending recs. #Dysphagia secondary to acute ischemic CVA Speech therapy consulted; recommending patient remain n.p.o. due to high aspiration risk. Continue tube feeds #Hypertension - home medications: Amlodipine 10 mg daily, Coreg 12.5 mg twice daily, losartan 100 mg daily, and clonidine patch 0.5 mg - current medications: Amlodipine 10 mg daily, Coreg 12.5 mg twice daily, losartan 100 mg daily, and clonidine patch 0.5 mg - SBP goal <160 and DBP goal <90 while inpatient - continue to monitor #Seizure disorder Starting home valproic acid 500 mg twice daily #Ground-level fall #Occipital scalp laceration Unremarkable imaging. Laceration repaired in the ED. Continue analgesics as needed. #Mild protein caloric malnutrition Albumin 3.0 Currently holding dietary supplementation as the patient is n.p.o. and pending speech evaluation in the setting of acute ischemic CVA. #Advanced care planning -Disease education conducted, care plan discussed, diagnoses discussed, prognosis discussed, and patient acknowledges understanding with care plan -Time: +30 min Disposition Plan: Continue medical management Total Time Spent with Patient (Minutes): 45 minutes History Interval history: No acute events overnight. Hospitalist Physical - Constitutional Vitals: Temp Pulse Resp BP Pulse Ox 97.7 F 83 17 133/94 100 11/12/21 11:32 11/12/21 12:23 11/12/21 11:32 11/12/21 11:32 11/12/21 11:32 General appearance: Present: no acute distress, well-nourished, other ( Nonverbal) - EENT Eyes: Present: PERRL, EOM intact ENT: hearing intact, clear oral mucosa, dentition normal, other (NG tube in place) - Neck Neck: Present: supple, normal ROM - Respiratory Respiratory effort: normal Respiratory: bilateral: CTA - Cardiovascular Rhythm: regular Heart Sounds: Present: S1 & S2 - Extremities Extremities: no ischemia, pulses intact, pulses symmetrical, No edema, normal temperature, normal color Peripheral Pulses: within normal limits - Abdominal General gastrointestinal: soft, non-tender, non-distended, normal bowel sounds - Integumentary Integumentary: Present: clear, warm, dry - Psychiatric Psychiatric: agitated (Mildly agitated but likely secondary to fear), other (Able to fully assess as the patient is nonverbal) - Neurologic Neurologic: focal deficits, other (Right-sided weakness of upper and lower extremity; nonverbal) - Allied Health Allied health notes reviewed: nursing HEART Score - HEART Score Troponin: Troponin T < 0.010 ng/mL (0.00-0.029) 11/09/21 23:33 Results - Labs CBC & Chem 7: 11/11/21 04:00 11/11/21 04:00 Labs: Laboratory Last Values WBC 10.0 K/mm3 (4.5-11.0) 11/11/21 04:00 RBC 3.82 M/mm3 (3.65-5.03) 11/11/21 04:00 Hgb 11.9 gm/dl (10.1-14.3) 11/11/21 04:00 Hct 34.7 % (30.3-42.9) D 11/11/21 04:00 MCV 91 fl (79-97) 11/11/21 04:00 MCH 31 pg (28-32) 11/11/21 04:00 MCHC 34 % (30-34) 11/11/21 04:00 RDW 23.2 % (13.2-15.2) H 11/11/21 04:00 Plt Count 205 K/mm3 (140-440) 11/11/21 04:00 Lymph % (Auto) 29.3 % (13.4-35.0) 11/09/21 23: [place] % (Auto) 8.0 % (0.0-7.3) H 11/09/21 23:33 Eos % (Auto) 1.9 % (0.0-4.3) 11/09/21 23: Baso % (Auto) 0.2 % (0.0-1.8) 11/09/21 23: Lymph # (Auto) 2.7 K/mm3 (1.2-5.4) 11/09/21 23: [place] # (Auto) 0.7 K/mm3 (0.0-0.8) 11/09/21 23: Eos # (Auto) 0.2 K/mm3 (0.0-0.4) 11/09/21 23: Baso # (Auto) 0.0 K/mm3 (0.0-0.1) 11/09/21 23:33 Add Manual Diff Complete 11/11/21 04:00 Total Counted 100 11/11/21 04:00 Seg Neutrophils % 60.6 % (40.0-70.0) 11/09/21 23: Seg Neuts % (Manual) 70.0 % (40.0-70.0) 11/11/21 04:00 Band Neutrophils % 1.0 % 11/11/21 04:00 Lymphocytes % (Manual) 20.0 % (13.4-35.0) 11/11/21 04:00 Reactive Lymphs % (Man) 0 % 11/11/21 04:00 Monocytes % (Manual) 9.0 % (0.0-7.3) H 11/11/21 04:00 Eosinophils % (Manual) 0 % (0.0-4.3) 11/11/21 04:00 Basophils % (Manual) 0 % (0.0-1.8) 11/11/21 04:00 Metamyelocytes % 0 % 11/11/21 04:00 Myelocytes % 0 % 11/11/21 04:00 Promyelocytes % 0 % 11/11/21 04:00 Blast Cells % 0 % 11/11/21 04:00 Nucleated RBC % Not Reportable 11/11/21 04:00 Seg Neutrophils # 5.7 K/mm3 (1.8-7.7) 11/09/21 23:33 Seg Neutrophils # Man 7.0 K/mm3 (1.8-7.7) 11/11/21 04:00 Band Neutrophils # 0.1 K/mm3 11/11/21 04:00 Lymphocytes # (Manual) 2.0 K/mm3 (1.2-5.4) 11/11/21 04:00 Abs React Lymphs (Man) 0.0 K/mm3 11/11/21 04:00 Monocytes # (Manual) 0.9 K/mm3 (0.0-0.8) H 11/11/21 04:00 Eosinophils # (Manual) 0.0 K/mm3 (0.0-0.4) 11/11/21 04:00 Basophils # (Manual) 0.0 K/mm3 (0.0-0.1) 11/11/21 04:00 Metamyelocytes # 0.0 K/mm3 11/11/21 04:00 Myelocytes # 0.0 K/mm3 11/11/21 04:00 Promyelocytes # 0.0 K/mm3 11/11/21 04:00 Blast Cells # 0.0 K/mm3 11/11/21 04:00 WBC Morphology Not Reportable 11/11/21 04:00 Hypersegmented Neuts Not Reportable 11/11/21 04:00 Hyposegmented Neuts Not Reportable 11/11/21 04:00 Hypogranular Neuts Not Reportable 11/11/21 04:00 Smudge Cells Not Reportable 11/11/21 04:00 Toxic Granulation Not Reportable 11/11/21 04:00 Toxic Vacuolation Not Reportable 11/11/21 04:00 Dohle Bodies Not Reportable 11/11/21 04:00 Pelger-Huet Anomaly Not Reportable 11/11/21 04:00 Keyonna Rods Not Reportable 11/11/21 04:00 Platelet Estimate Consistent w auto 11/11/21 04:00 Clumped Platelets Not Reportable 11/11/21 04:00 Plt Clumps, EDTA Not Reportable 11/11/21 04:00 Large Platelets Not Reportable 11/11/21 04:00 Giant Platelets Not Reportable 11/11/21 04:00 Platelet Satelliting Not Reportable 11/11/21 04:00 Plt Morphology Comment Not Reportable 11/11/21 04:00 RBC Morphology Not Reportable 11/11/21 04:00 Dimorphic RBCs Not Reportable 11/11/21 04:00 Polychromasia Not Reportable 11/11/21 04:00 Hypochromasia 1+ 11/11/21 04:00 Poikilocytosis Not Reportable 11/11/21 04:00 Anisocytosis 3+ 11/11/21 04:00 Microcytosis Not Reportable 11/11/21 04:00 Macrocytosis Not Reportable 11/11/21 04:00 Spherocytes Not Reportable 11/11/21 04:00 Pappenheimer Bodies Not Reportable 11/11/21 04:00 Sickle Cells Not Reportable 11/11/21 04:00 Target Cells Not Reportable 11/11/21 04:00 Tear Drop Cells Not Reportable 11/11/21 04:00 Ovalocytes Not Reportable 11/11/21 04:00 Helmet Cells Not Reportable 11/11/21 04:00 Geronimo-Orason Bodies Not Reportable 11/11/21 04:00 Sharon Rings Not Reportable 11/11/21 04:00 Conway Cells Not Reportable 11/11/21 04:00 Bite Cells Not Reportable 11/11/21 04:00 Crenated Cell Not Reportable 11/11/21 04:00 Elliptocytes Not Reportable 11/11/21 04:00 Acanthocytes (Spur) 1+ 11/11/21 04:00 Rouleaux Not Reportable 11/11/21 04:00 Hemoglobin C Crystals Not Reportable 11/11/21 04:00 Schistocytes Not Reportable 11/11/21 04:00 Malaria parasites Not Reportable 11/11/21 04:00 Quinn Bodies Not Reportable 11/11/21 04:00 Hem Pathologist Commnt No 11/11/21 04:00 PT 15.3 Sec. (12.2-14.9) H 11/09/21 23:33 INR 1.09 (0.87-1.13) 11/09/21 23:33 APTT 26.4 Sec. (24.2-36.6) 11/09/21 23:33 Thrombin Time 18.4 Sec. (15.1-19.6) 11/09/21 23:33 Sodium 139 mmol/L (137-145) 11/11/21 04:00 Potassium 3.5 mmol/L (3.6-5.0) L 11/11/21 04:00 Chloride 101.9 mmol/L (98-107) 11/11/21 04:00 Carbon Dioxide 22 mmol/L (22-30) 11/11/21 04:00 Anion Gap 19 mmol/L 11/11/21 04:00 BUN 14 mg/dL (7-17) 11/11/21 04:00 Creatinine 0.9 mg/dL (0.6-1.2) 11/11/21 04:00 Estimated GFR > 60 ml/min 11/11/21 04:00 BUN/Creatinine Ratio 16 % 11/11/21 04:00 Glucose 137 mg/dL (65-100) H 11/11/21 04:00 POC Glucose 95 mg/dL (70-105) 11/12/21 12:03 Calcium 9.3 mg/dL (8.4-10.2) 11/11/21 04:00 Total Bilirubin 0.20 mg/dL (0.1-1.2) 11/09/21 23:33 AST 29 units/L (5-40) 11/09/21 23:33 ALT 41 units/L (7-56) 11/09/21 23:33 Alkaline Phosphatase 51 units/L (35-129) 11/09/21 23:33 Total Creatine Kinase 73 units/L (30-135) 11/09/21 23:33 CK-MB (CK-2) 3.0 ng/mL (0.0-4.0) 11/09/21 23:33 CK-MB (CK-2) Rel Index 4.1 (0-4) H 11/09/21 23:33 Troponin T < 0.010 ng/mL (0.00-0.029) 11/09/21 23:33 Total Protein 5.9 g/dL (6.3-8.2) L 11/09/21 23:33 Albumin 3.0 g/dL (3.9-5) L 11/09/21 23:33 Albumin/Globulin Ratio 1.0 % 11/09/21 23:33 Chowdary/IV: Voiding Method External Female Catheter Active Medications - Current Medications Current Medications: Generic Name Dose Route Start Last Admin Trade Name Freq PRN Reason Stop Dose Admin Acetaminophen 650 mg 11/10/21 03:15 Acetaminophen 325 Mg Tab PO Q4H PRN Pain MILD(1-3)/Fever >100.5/PEREZ Albuterol 2.5 mg 11/10/21 10:37 Albuterol 2.5 Mg/3 Ml Nebu IH Q4HRT PRN Shortness Of Breath Amlodipine Besylate 10 mg 11/12/21 10:30 11/12/21 12:23 Amlodipine 10 Mg Tab PO 10 mg DAILY HUNTER Administration Lipase/Protease/Amylase 1 each 11/12/21 09:00 Lipase 10,500/Protease 25,000/Amylase 43,750 (Units) Dr Garcia FEEDTUBE PRN PRN For Clogged Feeding Tube Aspirin 325 mg 11/10/21 10:00 11/12/21 12:07 Aspirin 325 Mg Tab PO 325 mg QDAY HUNTER Administration Atorvastatin Calcium 40 mg 11/10/21 22:00 11/11/21 22:03 Atorvastatin 40 Mg Tab PO Not Given QHS HUNTER Carvedilol 12.5 mg 11/11/21 10:00 11/12/21 12:19 Carvedilol 12.5 Mg Tab PO 12.5 mg BID HUNTER Administration Clonidine HCl 0.3 mg 11/10/21 21:00 11/10/21 21:01 Clonidine Tts 0.3 Mg/24 Hr Patch TD 0.3 mg Sa HUNTER Administration Famotidine 20 mg 11/12/21 22:00 Famotidine 20 Mg Tab FEEDTUBE BID HUNTER Hydralazine HCl 10 mg 11/10/21 20:26 11/12/21 04:29 Hydralazine 20 Mg/1 Ml Inj IV 10 mg Q4HR PRN Administration Blood Pressure Dextrose/Sodium Chloride 1,000 mls @ 75 mls/hr 11/10/21 04:00 11/12/21 05:42 D5ns IV 100 mls/hr DIRECT HUNTER Administration Losartan Potassium 100 mg 11/12/21 10:00 11/12/21 12:22 Losartan 50 Mg Tab PO 100 mg QDAY HUNTER Administration Morphine Sulfate 2 mg 11/10/21 03:15 Morphine 2 Mg/1 Ml Inj IV Q4H PRN Pain, Moderate (4-6) Morphine Sulfate 4 mg 11/10/21 03:15 Morphine 4 Mg/1 Ml Inj IV Q4H PRN Pain , Severe (7-10) Ondansetron HCl 4 mg 11/10/21 03:15 Ondansetron 4 Mg/2 Ml Inj IV Q8H PRN Nausea And Vomiting Simple Syrup 15 ml 11/12/21 09:00 Simple Syrup 15 Ml FEEDTUBE PRN PRN Hypoglycemia Simple Syrup 30 ml 11/12/21 09:00 Simple Syrup 15 Ml FEEDTUBE PRN PRN Hypoglycemia Sodium Bicarbonate 325 mg 11/12/21 09:00 Sodium Bicarbonate 325 Mg Tab FEEDTUBE PRN PRN For Clogged Feeding Tube Sodium Chloride 10 ml 11/10/21 10:00 11/12/21 12:21 Sodium Chloride 0.9% 10 Ml Flush Syringe IV 10 ml BID HUNTER Administration Sodium Chloride 10 ml 11/10/21 03:15 Sodium Chloride 0.9% 10 Ml Flush Syringe IV PRN PRN LINE FLUSH Valproic Acid 500 mg 11/12/21 14:00 Valproic Acid 250 Mg/5 Ml Oral Liqd FEEDTUBE BID HUNTER Nutrition/Malnutrition Assess - Dietary Evaluation Nutrition/Malnutrition Findings: Nutrition Notes Start: 11/11/21 10:10 Freq: Status: Active Protocol: Document 11/12/21 10:36 RAY (Rec: 11/12/21 11:13 RAY [id number]) Nutrition Notes Need for Assessment generated from: MD Order Initial or Follow up Reassessment Current Diagnosis Hypertension,Malnutrition, Stroke Other Pertinent Diagnosis Fall/Head Injury, Seizures, Metabolic Encephalopathy. Current Diet NPO (since 11/12 02:33), TF- Jevity 1.2 Allan @ 55 ml/hr ( from L 11/12). Labs/Tests 11/12: K 3.5, Glu 137. Pertinent Medications 11/12: D5/ns @ 100, others nutritionally unremarkable. Height 5 ft 5 in Weight 56.4 kg [place] Body Weight (kg) 56.81 BMI 20.7 Weight change and time frame None provided at admission. No body weight change reported in 1 day. Weight Status Appropriate Subjective/Other Information RD consult for write/manage TF . Pt currently on NPO, TF was discontinues at some point, but now MD requested continuation, I will reorder TF as prescribed. Pt is on Room Air, O2 saturation @ 96%, according to Physical Assessment History notes. Pt has missing teeth, according to Physical Assessment History notes. Pt failed swallow evaluation on 11/12, according to Swallow Screen notes; ART PSYCHOTHERAPIST assessment is still pending. Pt shows scalp lacerations as signs of concern for skin risk at the time, according to Physical Assessment History notes. Pt currently on restrains and very combative with staff, according to RN notes. Percent of energy/protein needs met: Pt currently on NPO. Prescribed TF-Jevity 1.2 Allan @ 55 ml/hr provides for energy/ protein needs (1,579 Kcal/73 g ) during LOS, 100% Kcal; 109% AA. Burn Absent Trauma Present GI Symptoms None Difficulty In Swallowing Food Allergy No Skin Integrity/Comment Scalp lacerations. Current % PO Other Minimum of two criteria No Fluid Accumulation N/A Reduced Loss Prevention Coordinator Strength N/A (non-severe) Protein-Calorie Malnutrition N\\A #1 Nutrition Diagnosis Swallowing difficulty Comments: Diagnosis changed for precision. Pt failed swallow evaluation on 11/12, according to Swallow Screen notes; ART PSYCHOTHERAPIST assessment is still pending. Diagnosis Progress(for reassessment Continues documentation) Is patient on ventilator? No Is Patient Ambulatory and/or Out of Bed No REE-([facility]-confined to bed) 1331.508 Kcal/Kg value to use for calculation 28 Approximate Energy Requirements Using 1579 kcal/Kg Calculation Used for Recommendations Kcal/kg Additional Notes Protein: 1-1.2 g/Kg ABW; 56-67 g/day. Fluids: 1 ml/Kcal, or as per MD. Nutrition Intervention Nutrition Support: Resume TF-Jevity 1.2 Allan @ 55 ml/hr. Flush: 90 ml water Q 4 hr, or as per MD. Kcal 1,579 Protein (gm) 73 Carbohydrates (gm) 223 Fat (gm) 52 Fluid (mL) 1,062 Fiber (gm) 24 % RDI: 100% Kcal; 109% AA. Goal #1 Provide at least 75% of energy /protein needs through Enteral Feeding during LOS. Follow-Up By: 11/13/21 Additional Comments Continue monitoring TF tolerance and BM.
[2021-11-12 14:35] LABS: Chol/HDL Ratio 4.14 %
[2021-11-12] MEDS: VALPROIC ACID 250 MG/5 ML ORAL LIQD FEEDTUBE SCH ×2 (17:33→22:13)
--- NOTE | 2021-11-12 20:56 | Consultation ---
History of Present Illness Consult date: 11/12/21 Reason for Consult: CVA Chief complaint: CVA History of present illness: 66 yo female with htn, seizure d/o, who presented after a fall earlier in the day requiring stitches and then presented with noted right facial droop with encephalopathy while eating. She was evaluated by telestroke neurologist and no t-PA given. CTA revealed left M3 occlusion. MRI Brain revealed an acute ischemic stroke involving the left frontal operculum. Patient is not able to give any clinical history secondary to severe aphasia/muteness. Past History Past Medical History: hypertension, seizures Past Surgical History: No surgical history Social history: no significant social history Family history: hypertension Medications and Allergies Allergies Allergy/AdvReac Type Severity Reaction Status Date / Time No Known Allergies Allergy Verified 11/12/21 11:09 Home Medications Medication Instructions Recorded Confirmed Last Taken Type Aspirin [Aspirin BABY CHEW TAB] 81 mg PO DAILY 11/11/21 11/12/21 Unknown History Divalproex ER [Depakote ER] 500 mg PO BID 11/11/21 11/12/21 Unknown History Losartan [Cozaar] 100 mg PO QDAY 11/11/21 11/12/21 Unknown History carvediloL [Coreg] 12.5 mg PO BID 11/11/21 11/12/21 Unknown History Atorvastatin Calcium [Lipitor] 80 mg PO QDAY 11/12/21 11/12/21 Unknown History Cyanocobalamin [Vitamin B-12] 1,000 mcg PO DAILY 11/12/21 11/12/21 Unknown History Melatonin [Melatonin 10MG TAB] 10 mg PO QDAY 11/12/21 11/12/21 Unknown History OLANzapine ZYDIS [ZyPREXA Zydis] 5 mg PO QPM 11/12/21 11/12/21 Unknown History Thiamine [Vitamin B-1] 100 mg PO QDAY 11/12/21 11/12/21 Unknown History Active Meds: Active Medications Acetaminophen (Acetaminophen 325 Mg Tab) 650 mg PO Q4H PRN PRN Reason: Pain MILD(1-3)/Fever >100.5/PEREZ Albuterol (Albuterol 2.5 Mg/3 Ml Nebu) 2.5 mg IH Q4HRT PRN PRN Reason: Shortness Of Breath Amlodipine Besylate (Amlodipine 10 Mg Tab) 10 mg PO DAILY HUNTER Last Admin: 11/12/21 12:23 Dose: 10 mg Lipase/Protease/Amylase (Lipase 10,500/Protease 25,000/Amylase 43,750 (Units) Dr Garcia) 1 each FEEDTUBE PRN PRN PRN Reason: For Clogged Feeding Tube Aspirin (Aspirin 325 Mg Tab) 325 mg PO QDAY [facility] Last Admin: 11/12/21 12:07 Dose: 325 mg Atorvastatin Calcium (Atorvastatin 40 Mg Tab) 40 mg PO QHS [facility] Last Admin: 11/11/21 22:03 Dose: Not Given Carvedilol (Carvedilol 12.5 Mg Tab) 12.5 mg PO BID [facility] Last Admin: 11/12/21 20:50 Dose: Not Given Clonidine HCl (Clonidine Tts 0.3 Mg/24 Hr Patch) 0.3 mg TD Sa [facility] Last Admin: 11/10/21 21:01 Dose: 0.3 mg Famotidine (Famotidine 20 Mg Tab) 20 mg FEEDTUBE BID [facility] Hydralazine HCl (Hydralazine 20 Mg/1 Ml Inj) 10 mg IV Q4HR PRN PRN Reason: Blood Pressure Last Admin: 11/12/21 04:29 Dose: 10 mg Dextrose/Sodium Chloride (D5ns) 1,000 mls @ 75 mls/hr IV DIRECT [facility] Last Admin: 11/12/21 05:42 Dose: 100 mls/hr Losartan Potassium (Losartan 50 Mg Tab) 100 mg PO QDAY [facility] Last Admin: 11/12/21 12:22 Dose: 100 mg Morphine Sulfate (Morphine 2 Mg/1 Ml Inj) 2 mg IV Q4H PRN PRN Reason: Pain, Moderate (4-6) Morphine Sulfate (Morphine 4 Mg/1 Ml Inj) 4 mg IV Q4H PRN PRN Reason: Pain , Severe (7-10) Ondansetron HCl (Ondansetron 4 Mg/2 Ml Inj) 4 mg IV Q8H PRN PRN Reason: Nausea And Vomiting Simple Syrup (Simple Syrup 15 Ml) 15 ml FEEDTUBE PRN PRN PRN Reason: Hypoglycemia Simple Syrup (Simple Syrup 15 Ml) 30 ml FEEDTUBE PRN PRN PRN Reason: Hypoglycemia Sodium Bicarbonate (Sodium Bicarbonate 325 Mg Tab) 325 mg FEEDTUBE PRN PRN PRN Reason: For Clogged Feeding Tube Sodium Chloride (Sodium Chloride 0.9% 10 Ml Flush Syringe) 10 ml IV BID [facility] Last Admin: 11/12/21 12:21 Dose: 10 ml Sodium Chloride (Sodium Chloride 0.9% 10 Ml Flush Syringe) 10 ml IV PRN PRN PRN Reason: LINE FLUSH Valproic Acid (Valproic Acid 250 Mg/5 Ml Oral Liqd) 500 mg FEEDTUBE BID [facility] Last Admin: 11/12/21 17:33 Dose: 500 mg Review of Systems ROS unobtainable: due to mental status Physical Examination - Vital Signs Vital Signs: Vital Signs Temp Pulse Resp BP Pulse Ox 98 F 88 18 152/100 100 11/09/21 22:51 11/09/21 22:51 11/09/21 22:51 11/09/21 22:51 11/09/21 22:51 - Physical Exam Narrative exam: Gen: nad; Head: normocephalic; Eyes: no gaze deviation; ENT: no vocalization; CVS: warm and well-perfused; Pulm: no respiratory distress; GI: appears non-distended; Ext: no cyanosis appreciated at distal extremities; Skin: no acute rash appreciated at distal extremities; Heme: no pathologic ecchymosis appreciated at distal extremities; Neuro: appears alert, mute, not following commands, CN 2 - sluggish reactive pupils, CN 3, 4, 6 - slight left gaze preference, CN 5/7 - blinks spontaneously; CN 9/10 - spontaneously swallowing absent; CN 11/12 - pt cannot cooperate secondary to LOC; Motor/Sensory - at least 1/5 at proximal right arm; 0/5 at distal right arm; 2-/5 at left arm & bilateral legs to tactile stimuli; Cerebellar/Gait - pt cannot cooperate secondary to LOC; Results - Laboratory Findings CBC and BMP: 11/11/21 04:00 11/11/21 04:00 Abnormal Lab Findings: Abnormal Labs 11/09/21 11/09/21 11/09/21 23:33 23:33 23:33 RBC 2.99 L Hgb 9.3 L Hct 27.7 L RDW 24.1 H [place] % (Auto) 8.0 H Monocytes % (Manual) Monocytes # (Manual) PT 15.3 H Potassium BUN 37 H Glucose 140 H POC Glucose CK-MB (CK-2) Rel Index 4.1 H Total Protein 5.9 L Albumin 3.0 L 11/11/21 11/11/21 11/11/21 00:07 04:00 04:00 RBC Hgb Hct RDW 23.2 H [place] % (Auto) Monocytes % (Manual) 9.0 H Monocytes # (Manual) 0.9 H PT Potassium 3.5 L BUN Glucose 137 H POC Glucose 120 H CK-MB (CK-2) Rel Index Total Protein Albumin 11/12/21 11/12/21 00:18 05:32 RBC Hgb Hct RDW [place] % (Auto) Monocytes % (Manual) Monocytes # (Manual) PT Potassium BUN Glucose POC Glucose 128 H 117 H CK-MB (CK-2) Rel Index Total Protein Albumin Assessment and Plan 66 yo female with htn, seizure d/o, who presented after a fall earlier in the day requiring stitches and then presented with noted right facial droop with encephalopathy while eating. She was evaluated by telestroke neurologist and no t-PA given. CTA revealed left M3 occlusion. MRI Brain revealed an acute ischemic stroke involving the left frontal operculum. Patient is not able to give any clinical history secondary to severe aphasia/muteness. Patient's clinical symptoms appear out of proportion to the acute infarction noted on MR Brain. 1. Acute Ischemic Stroke ([id number] embolus and/or icadx) - noted on MR Brain wo contrast wi/ left M3 occlusion; continue antiplatelet/statin therapy; tte (if normal, then chris), continue telemetry for now w/ long-term cardiac monitoring (loop recorder); pt/ot/st/swallow evaluation/monitoring. 2. 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 3. Status Epilepticus (subclinical) - stat EEG ordered; continue valproate for now; based on eeg results, vpa to be adjusted and/or additional AED. 4. Therapeutic Drug Monitoring - vpa level ordered for the AM. 5. Hypertension - aim for normotension in 48 hours. 6. Right-sided (arm > leg) w/ generalized weakness w/ aphasia w/ muteness w/ dysphagia - pt/ot/st/swallow evaluation/monitoring. 7. Fall (initial encounter) / Post-concussive syndrome - monitor clinically. Neymar Bowens MD Neurology [id number]
[2021-11-12] MEDS: FAMOTIDINE 20 MG TAB FEEDTUBE SCH (22:14)
--- NOTE | 2021-11-13 09:13 | Progress Note ---
Assessment and Plan Assessment and plan: #Acute ischemic CVA #Acute metabolic encephalopathy Patient evaluated by telemetry neurology in the ED, and she was now found to be a candidate for tPA. Unremarkable CT head noncontrast. 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 MRI brain without contrast revealing "tiny focus of acute infarct in the left frontal opercular region. No hemorrhage or adverse mass-effect." TTE (11/10/2021) revealing EF 55-60% with normal-sized LV, mild concentric LVH, septal hypertrophy, abnormal diastolic function, normal-sized RV, normal RV systolic function, normal LA size, normal RA, no evidence of ASD or PFO. Hemoglobin A1c 5.4. Pending lipid profile. Continue aspirin 325 mg daily per rectum until the patient is cleared by speech therapy. Patient can be started on atorvastatin 40 mg daily when she can tolerate p.o. Neurology consulted; recommendations appreciated -Cardiology consulted for RICARDO, will not be completed at this time due to patients mental status Physical therapy, Occupational Therapy: recommending subacute rehab #Dysphagia secondary to acute ischemic CVA Speech therapy consulted; recommending patient remain n.p.o. due to high aspiration risk. Continue tube feeds #Hypertension - home medications: Amlodipine 10 mg daily, Coreg 12.5 mg twice daily, losartan 100 mg daily, and clonidine patch 0.5 mg - current medications: Amlodipine 10 mg daily, Coreg 12.5 mg twice daily, losartan 100 mg daily, and clonidine patch 0.5 mg + PRN hydralazine - SBP goal <160 and DBP goal <90 while inpatient - continue to monitor #Seizure disorder continue valproic acid 500 mg twice daily -valproic acid level ordered -EEG ordered by Neurology #Ground-level fall #Occipital scalp laceration Unremarkable imaging. Laceration repaired in the ED with jarrett. Continue analgesics as needed. #Mild protein caloric malnutrition Albumin 3.0 Currently holding dietary supplementation as the patient is n.p.o. and pending speech evaluation in the setting of acute ischemic CVA History Interval history: No acute events overnight per nursing. At baseline the patient opens her eyes but does not speak since the stroke. Hospitalist Physical - Physical exam Narrative exam: GENERAL: Well-developed well-nourished. In no acute distress. HEENT: NGT in place @ 40cc/hr NECK: Supple. CHEST/LUNGS: CTAB on room air HEART/CARDIOVASCULAR: RRR. No murmur, rubs or gallops appreciated. ABDOMEN: +BS. NT/ND. SKIN: Scalp laceration healing appropriately with jarrett. NEURO: Unable to assess. MUSCULOSKELETAL: No joint effusion EXTREMITIES: No cyanosis, clubbing or edema. PSYCH: Unable to assess. Patient nonverbal and nonresponsive to commands after stroke. - Constitutional Vitals: Temp Pulse Resp BP Pulse Ox 98.3 F 86 18 148/97 96 11/13/21 07:51 11/13/21 07:51 11/13/21 07:51 11/13/21 07:51 11/13/21 07:51 General appearance: Present: no acute distress, well-nourished, other (Nonverbal) HEART Score - HEART Score Troponin: Troponin T < 0.010 ng/mL (0.00-0.029) 11/09/21 23:33 Results - Labs CBC & Chem 7: 11/11/21 04:00 11/11/21 04:00 Labs: Laboratory Last Values WBC 10.0 K/mm3 (4.5-11.0) 11/11/21 04:00 RBC 3.82 M/mm3 (3.65-5.03) 11/11/21 04:00 Hgb 11.9 gm/dl (10.1-14.3) 11/11/21 04:00 Hct 34.7 % (30.3-42.9) D 11/11/21 04:00 MCV 91 fl (79-97) 11/11/21 04:00 MCH 31 pg (28-32) 11/11/21 04:00 MCHC 34 % (30-34) 11/11/21 04:00 RDW 23.2 % (13.2-15.2) H 11/11/21 04:00 Plt Count 205 K/mm3 (140-440) 11/11/21 04:00 Lymph % (Auto) 29.3 % (13.4-35.0) 11/09/21 23:33 Banks % (Auto) 8.0 % (0.0-7.3) H 11/09/21 23:33 Eos % (Auto) 1.9 % (0.0-4.3) 11/09/21 23: Baso % (Auto) 0.2 % (0.0-1.8) 11/09/21 23: Lymph # (Auto) 2.7 K/mm3 (1.2-5.4) 11/09/21: Banks # (Auto) 0.7 K/mm3 (0.0-0.8) 11/09/21 23: Eos # (Auto) 0.2 K/mm3 (0.0-0.4) 11/09/21: Baso # (Auto) 0.0 K/mm3 (0.0-0.1) 11/09/21 23:33 Add Manual Diff Complete 11/11/21 04:00 Total Counted 100 11/11/21 04:00 Seg Neutrophils % 60.6 % (40.0-70.0) 11/09/21 23: Seg Neuts % (Manual) 70.0 % (40.0-70.0) 11/11/21 04:00 Band Neutrophils % 1.0 % 11/11/21 04:00 Lymphocytes % (Manual) 20.0 % (13.4-35.0) 11/11/21 04:00 Reactive Lymphs % (Man) 0 % 11/11/21 04:00 Monocytes % (Manual) 9.0 % (0.0-7.3) H 11/11/21 04:00 Eosinophils % (Manual) 0 % (0.0-4.3) 11/11/21 04:00 Basophils % (Manual) 0 % (0.0-1.8) 11/11/21 04:00 Metamyelocytes % 0 % 11/11/21 04:00 Myelocytes % 0 % 11/11/21 04:00 Promyelocytes % 0 % 11/11/21 04:00 Blast Cells % 0 % 11/11/21 04:00 Nucleated RBC % Not Reportable 11/11/21 04:00 Seg Neutrophils # 5.7 K/mm3 (1.8-7.7) 11/09/21 23:33 Seg Neutrophils # Man 7.0 K/mm3 (1.8-7.7) 11/11/21 04:00 Band Neutrophils # 0.1 K/mm3 11/11/21 04:00 Lymphocytes # (Manual) 2.0 K/mm3 (1.2-5.4) 11/11/21 04:00 Abs React Lymphs (Man) 0.0 K/mm3 11/11/21 04:00 Monocytes # (Manual) 0.9 K/mm3 (0.0-0.8) H 11/11/21 04:00 Eosinophils # (Manual) 0.0 K/mm3 (0.0-0.4) 11/11/21 04:00 Basophils # (Manual) 0.0 K/mm3 (0.0-0.1) 11/11/21 04:00 Metamyelocytes # 0.0 K/mm3 11/11/21 04:00 Myelocytes # 0.0 K/mm3 11/11/21 04:00 Promyelocytes # 0.0 K/mm3 11/11/21 04:00 Blast Cells # 0.0 K/mm3 11/11/21 04:00 WBC Morphology Not Reportable 11/11/21 04:00 Hypersegmented Neuts Not Reportable 11/11/21 04:00 Hyposegmented Neuts Not Reportable 11/11/21 04:00 Hypogranular Neuts Not Reportable 11/11/21 04:00 Smudge Cells Not Reportable 11/11/21 04:00 Toxic Granulation Not Reportable 11/11/21 04:00 Toxic Vacuolation Not Reportable 11/11/21 04:00 Dohle Bodies Not Reportable 11/11/21 04:00 Pelger-Huet Anomaly Not Reportable 11/11/21 04:00 Keyonna Rods Not Reportable 11/11/21 04:00 Platelet Estimate Consistent w auto 11/11/21 04:00 Clumped Platelets Not Reportable 11/11/21 04:00 Plt Clumps, EDTA Not Reportable 11/11/21 04:00 Large Platelets Not Reportable 11/11/21 04:00 Giant Platelets Not Reportable 11/11/21 04:00 Platelet Satelliting Not Reportable 11/11/21 04:00 Plt Morphology Comment Not Reportable 11/11/21 04:00 RBC Morphology Not Reportable 11/11/21 04:00 Dimorphic RBCs Not Reportable 11/11/21 04:00 Polychromasia Not Reportable 11/11/21 04:00 Hypochromasia 1+ 11/11/21 04:00 Poikilocytosis Not Reportable 11/11/21 04:00 Anisocytosis 3+ 11/11/21 04:00 Microcytosis Not Reportable 11/11/21 04:00 Macrocytosis Not Reportable 11/11/21 04:00 Spherocytes Not Reportable 11/11/21 04:00 Pappenheimer Bodies Not Reportable 11/11/21 04:00 Sickle Cells Not Reportable 11/11/21 04:00 Target Cells Not Reportable 11/11/21 04:00 Tear Drop Cells Not Reportable 11/11/21 04:00 Ovalocytes Not Reportable 11/11/21 04:00 Helmet Cells Not Reportable 11/11/21 04:00 [place] Bodies Not Reportable 11/11/21 04:00 [place] Rings Not Reportable 11/11/21 04:00 [place]ñito Cells Not Reportable 11/11/21 04:00 Bite Cells Not Reportable 11/11/21 04:00 Crenated Cell Not Reportable 11/11/21 04:00 Elliptocytes Not Reportable 11/11/21 04:00 Acanthocytes (Spur) 1+ 11/11/21 04:00 Rouleaux Not Reportable 11/11/21 04:00 Hemoglobin C Crystals Not Reportable 11/11/21 04:00 Schistocytes Not Reportable 11/11/21 04:00 Malaria parasites Not Reportable 11/11/21 04:00 Quinn Bodies Not Reportable 11/11/21 04:00 Hem Pathologist Commnt No 11/11/21 04:00 PT 15.3 Sec. (12.2-14.9) H 11/09/21 23:33 INR 1.09 (0.87-1.13) 11/09/21 23:33 APTT 26.4 Sec. (24.2-36.6) 11/09/21 23:33 Thrombin Time 18.4 Sec. (15.1-19.6) 11/09/21 23:33 Sodium 139 mmol/L (137-145) 11/11/21 04:00 Potassium 3.5 mmol/L (3.6-5.0) L 11/11/21 04:00 Chloride 101.9 mmol/L (98-107) 11/11/21 04:00 Carbon Dioxide 22 mmol/L (22-30) 11/11/21 04:00 Anion Gap 19 mmol/L 11/11/21 04:00 BUN 14 mg/dL (7-17) 11/11/21 04:00 Creatinine 0.9 mg/dL (0.6-1.2) 11/11/21 04:00 Estimated GFR > 60 ml/min 11/11/21 04:00 BUN/Creatinine Ratio 16 % 11/11/21 04:00 Glucose 137 mg/dL (65-100) H 11/11/21 04:00 POC Glucose 105 mg/dL (70-105) 11/13/21 06:38 Hemoglobin A1c 5.4 % (4-6) 11/11/21 11:50 Calcium 9.3 mg/dL (8.4-10.2) 11/11/21 04:00 Total Bilirubin 0.20 mg/dL (0.1-1.2) 11/09/21 23:33 AST 29 units/L (5-40) 11/09/21 23:33 ALT 41 units/L (7-56) 11/09/21 23:33 Alkaline Phosphatase 51 units/L (35-129) 11/09/21 23:33 Total Creatine Kinase 73 units/L (30-135) 11/09/21 23:33 CK-MB (CK-2) 3.0 ng/mL (0.0-4.0) 11/09/21 23:33 CK-MB (CK-2) Rel Index 4.1 (0-4) H 11/09/21 23:33 Troponin T < 0.010 ng/mL (0.00-0.029) 11/09/21 23:33 Total Protein 5.9 g/dL (6.3-8.2) L 11/09/21 23:33 Albumin 3.0 g/dL (3.9-5) L 11/09/21 23:33 Albumin/Globulin Ratio 1.0 % 11/09/21 23:33 Triglycerides 81 mg/dL (2-149) 11/10/21 11:15 Cholesterol 195 mg/dL (50-199) 08/13/22 11:15 LDL Cholesterol Direct 120 mg/dL (50-130) 11/10/21 11:15 HDL Cholesterol 47 mg/dL (40-59) 11/10/21 11:15 Cholesterol/HDL Ratio 4.14 % 11/10/21 11:15 Chowdary/IV: Voiding Method External Female Catheter Active Medications - Current Medications Current Medications: Generic Name Dose Route Start Last Admin Trade Name Freq PRN Reason Stop Dose Admin Acetaminophen 650 mg 11/10/21 03:15 Acetaminophen 325 Mg Tab PO Q4H PRN Pain MILD(1-3)/Fever >100.5/PEREZ Albuterol 2.5 mg 11/10/21 10:37 Albuterol 2.5 Mg/3 Ml Nebu IH Q4HRT PRN Shortness Of Breath Amlodipine Besylate 10 mg 11/12/21 10:30 11/12/21 12:23 Amlodipine 10 Mg Tab PO 10 mg DAILY HUNTER Administration Lipase/Protease/Amylase 1 each 11/12/21 09:00 Lipase 10,500/Protease 25,000/Amylase 43,750 (Units) Dr Garcia FEEDTUBE PRN PRN For Clogged Feeding Tube Aspirin 325 mg 11/10/21 10:00 11/12/21 12:07 Aspirin 325 Mg Tab PO 325 mg QDAY HUNTER Administration Atorvastatin Calcium 40 mg 11/10/21 22:00 11/12/21 22:13 Atorvastatin 40 Mg Tab PO 40 mg QHS HUNTER Administration Carvedilol 12.5 mg 11/11/21 10:00 11/12/21 22:14 Carvedilol 12.5 Mg Tab PO 12.5 mg BID HUNTER Administration Clonidine HCl 0.3 mg 11/10/21 21:00 11/10/21 21:01 Clonidine Tts 0.3 Mg/24 Hr Patch TD 0.3 mg Sa HUNTER Administration Famotidine 20 mg 11/12/21 22:00 11/12/21 22:14 Famotidine 20 Mg Tab FEEDTUBE 20 mg BID HUNTER Administration Hydralazine HCl 10 mg 11/10/21 20:26 11/12/21 04:29 Hydralazine 20 Mg/1 Ml Inj IV 10 mg Q4HR PRN Administration Blood Pressure Losartan Potassium 100 mg 11/12/21 10:00 11/12/21 12:22 Losartan 50 Mg Tab PO 100 mg QDAY HUNTER Administration Morphine Sulfate 2 mg 11/10/21 03:15 Morphine 2 Mg/1 Ml Inj IV Q4H PRN Pain, Moderate (4-6) Morphine Sulfate 4 mg 11/10/21 03:15 Morphine 4 Mg/1 Ml Inj IV Q4H PRN Pain , Severe (7-10) Ondansetron HCl 4 mg 11/10/21 03:15 Ondansetron 4 Mg/2 Ml Inj IV Q8H PRN Nausea And Vomiting Simple Syrup 15 ml 11/12/21 09:00 Simple Syrup 15 Ml FEEDTUBE PRN PRN Hypoglycemia Simple Syrup 30 ml 11/12/21 09:00 Simple Syrup 15 Ml FEEDTUBE PRN PRN Hypoglycemia Sodium Bicarbonate 325 mg 11/12/21 09:00 Sodium Bicarbonate 325 Mg Tab FEEDTUBE PRN PRN For Clogged Feeding Tube Sodium Chloride 10 ml 11/10/21 10:00 11/12/21 22:14 Sodium Chloride 0.9% 10 Ml Flush Syringe IV 10 ml BID HUNTER Administration Sodium Chloride 10 ml 11/10/21 03:15 Sodium Chloride 0.9% 10 Ml Flush Syringe IV PRN PRN LINE FLUSH Valproic Acid 500 mg 11/12/21 14:00 11/12/21 22:13 Valproic Acid 250 Mg/5 Ml Oral Liqd FEEDTUBE 500 mg BID HUNTER Administration Nutrition/Malnutrition Assess - Dietary Evaluation Nutrition/Malnutrition Findings: Nutrition Notes Start: 11/11/21 10:10 Freq: Status: Active Protocol: Document 11/12/21 10:36 RAY (Rec: 11/12/21 11:13 RAY [id number]) Nutrition Notes Need for Assessment generated from: MD Order Initial or Follow up Reassessment Current Diagnosis Hypertension,Malnutrition, Stroke Other Pertinent Diagnosis Fall/Head Injury, Seizures, Metabolic Encephalopathy. Current Diet NPO (since 11/12 02:33), TF- Jevity 1.2 Allan @ 55 ml/hr ( from L 11/12). Labs/Tests 11/12: K 3.5, Glu 137. Pertinent Medications 11/12: D5/ns @ 100, others nutritionally unremarkable. Height 5 ft 5 in Weight 56.4 kg [place] Body Weight (kg) 56.81 BMI 20.7 Weight change and time frame None provided at admission. No body weight change reported in 1 day. Weight Status Appropriate Subjective/Other Information RD consult for write/manage TF . Pt currently on NPO, TF was discontinues at some point, but now MD requested continuation, I will reorder TF as prescribed. Pt is on Room Air, O2 saturation @ 96%, according to Physical Assessment History notes. Pt has missing teeth, according to Physical Assessment History notes. Pt failed swallow evaluation on 11/12, according to Swallow Screen notes; GAUGE OPERATOR assessment is still pending. Pt shows scalp lacerations as signs of concern for skin risk at the time, according to Physical Assessment History notes. Pt currently on restrains and very combative with staff, according to RN notes. Percent of energy/protein needs met: Pt currently on NPO. Prescribed TF-Jevity 1.2 Allan @ 55 ml/hr provides for energy/ protein needs (1,579 Kcal/73 g ) during LOS, 100% Kcal; 109% AA. Burn Absent Trauma Present GI Symptoms None Difficulty In Swallowing Food Allergy No Skin Integrity/Comment Scalp lacerations. Current % PO Other Minimum of two criteria No Fluid Accumulation N/A Reduced Exercise Science Internship Strength N/A (non-severe) Protein-Calorie Malnutrition N\\A #1 Nutrition Diagnosis Swallowing difficulty Comments: Diagnosis changed for precision. Pt failed swallow evaluation on 11/12, according to Swallow Screen notes; GAUGE OPERATOR assessment is still pending. Diagnosis Progress(for reassessment Continues documentation) Is patient on ventilator? No Is Patient Ambulatory and/or Out of Bed No REE-([facility]-confined to bed) 1331.508 Kcal/Kg value to use for calculation 28 Approximate Energy Requirements Using 1579 kcal/Kg Calculation Used for Recommendations Kcal/kg Additional Notes Protein: 1-1.2 g/Kg ABW; 56-67 g/day. Fluids: 1 ml/Kcal, or as per MD. Nutrition Intervention Nutrition Support: Resume TF-Jevity 1.2 Allan @ 55 ml/hr. Flush: 90 ml water Q 4 hr, or as per MD. Kcal 1,579 Protein (gm) 73 Carbohydrates (gm) 223 Fat (gm) 52 Fluid (mL) 1,062 Fiber (gm) 24 % RDI: 100% Kcal; 109% AA. Goal #1 Provide at least 75% of energy /protein needs through Enteral Feeding during LOS. Follow-Up By: 11/13/21 Additional Comments Continue monitoring TF tolerance and BM.
--- NOTE | 2021-11-13 10:24 | Consultation ---
History of Present Illness Consult date: 11/13/21 Consult reason: other (stroke) History of present illness: Patient is not able to give history because of altered mental status. Per admission HPI "66-year-old -[place] female who fell earlier during the day sustained scalp laceration which was repaired. Patient discharged from the emergency approximately 2 hours ago went home and according to patient became more confusion and unresponsive responsive. pt was found to have facial droop and stroke was alerted CT scan of the head shows a small focal area of hyperdensity within the suprasellar region appears similar to the size is unchanged since. Examination. Diffuse periventricular and central white matter areas of low-attenuation suggesting chronic small vessel disease. Large areas of low-attenuation left frontal lobe, periventricular white matter and right occipital lobe. Given patient's symptoms of facial drooping findings are concerning for acute ischemic change CTA negative for LVO, spoke with neurology who recommends TPA if we can rule out bleed, spoke with radiologist dayron , who asked for MRI to rule out bleed, spoke with lillian ) from radiology but no optics test technician tonight till 7 am tomorrow, re spoke with neurology dr Lakhani who said if we cannot rule out bleed wont be able to give TPA " Past History Past Medical History: hypertension, seizures, other Past Surgical History: No surgical history Social history: no significant social history Family history: hypertension Medications and Allergies Allergies Allergy/AdvReac Type Severity Reaction Status Date / Time No Known Allergies Allergy Verified 11/12/21 11:09 Home Medications Medication Instructions Recorded Confirmed Last Taken Type Aspirin [Aspirin BABY CHEW TAB] 81 mg PO DAILY 11/11/21 11/12/21 Unknown History Divalproex ER [Depakote ER] 500 mg PO BID 11/11/21 11/12/21 Unknown History Losartan [Cozaar] 100 mg PO QDAY 11/11/21 11/12/21 Unknown History carvediloL [Coreg] 12.5 mg PO BID 11/11/21 11/12/21 Unknown History Atorvastatin Calcium [Lipitor] 80 mg PO QDAY 11/12/21 11/12/21 Unknown History Cyanocobalamin [Vitamin B-12] 1,000 mcg PO DAILY 11/12/21 11/12/21 Unknown History Melatonin [Melatonin 10MG TAB] 10 mg PO QDAY 11/12/21 11/12/21 Unknown History OLANzapine ZYDIS [ZyPREXA Zydis] 5 mg PO QPM 11/12/21 11/12/21 Unknown History Thiamine [Vitamin B-1] 100 mg PO QDAY 11/12/21 11/12/21 Unknown History Active Meds: Active Medications Acetaminophen (Acetaminophen 325 Mg Tab) 650 mg PO Q4H PRN PRN Reason: Pain MILD(1-3)/Fever >100.5/PEREZ Albuterol (Albuterol 2.5 Mg/3 Ml Nebu) 2.5 mg IH Q4HRT PRN PRN Reason: Shortness Of Breath Amlodipine Besylate (Amlodipine 10 Mg Tab) 10 mg PO DAILY [facility] Last Admin: 11/12/21 12:23 Dose: 10 mg Lipase/Protease/Amylase (Lipase 10,500/Protease 25,000/Amylase 43,750 (Units) Dr Garcia) 1 each FEEDTUBE PRN PRN PRN Reason: For Clogged Feeding Tube Aspirin (Aspirin 325 Mg Tab) 325 mg PO QDAY [facility] Last Admin: 11/12/21 12:07 Dose: 325 mg Atorvastatin Calcium (Atorvastatin 40 Mg Tab) 40 mg PO QHS [facility] Last Admin: 11/12/21 22:13 Dose: 40 mg Carvedilol (Carvedilol 12.5 Mg Tab) 12.5 mg PO BID [facility] Last Admin: 11/12/21 22:14 Dose: 12.5 mg Clonidine HCl (Clonidine Tts 0.3 Mg/24 Hr Patch) 0.3 mg TD Sa [facility] Last Admin: 11/10/21 21:01 Dose: 0.3 mg Famotidine (Famotidine 20 Mg Tab) 20 mg FEEDTUBE BID [facility] Last Admin: 11/12/21 22:14 Dose: 20 mg Hydralazine HCl (Hydralazine 20 Mg/1 Ml Inj) 10 mg IV Q4HR PRN PRN Reason: Blood Pressure Last Admin: 11/12/21 04:29 Dose: 10 mg Losartan Potassium (Losartan 50 Mg Tab) 100 mg PO QDAY [facility] Last Admin: 11/12/21 12:22 Dose: 100 mg Morphine Sulfate (Morphine 2 Mg/1 Ml Inj) 2 mg IV Q4H PRN PRN Reason: Pain, Moderate (4-6) Morphine Sulfate (Morphine 4 Mg/1 Ml Inj) 4 mg IV Q4H PRN PRN Reason: Pain , Severe (7-10) Ondansetron HCl (Ondansetron 4 Mg/2 Ml Inj) 4 mg IV Q8H PRN PRN Reason: Nausea And Vomiting Simple Syrup (Simple Syrup 15 Ml) 15 ml FEEDTUBE PRN PRN PRN Reason: Hypoglycemia Simple Syrup (Simple Syrup 15 Ml) 30 ml FEEDTUBE PRN PRN PRN Reason: Hypoglycemia Sodium Bicarbonate (Sodium Bicarbonate 325 Mg Tab) 325 mg FEEDTUBE PRN PRN PRN Reason: For Clogged Feeding Tube Sodium Chloride (Sodium Chloride 0.9% 10 Ml Flush Syringe) 10 ml IV BID [facility] Last Admin: 11/12/21 22:14 Dose: 10 ml Sodium Chloride (Sodium Chloride 0.9% 10 Ml Flush Syringe) 10 ml IV PRN PRN PRN Reason: LINE FLUSH Valproic Acid (Valproic Acid 250 Mg/5 Ml Oral Liqd) 500 mg FEEDTUBE BID [facility] Last Admin: 11/12/21 22:13 Dose: 500 mg Review of Systems ROS unobtainable: due to mental status Physical Examination Vital Signs Temp Pulse Resp BP Pulse Ox 98 F 88 18 152/100 100 11/09/21 22:51 11/09/21 22:51 11/09/21 22:51 11/09/21 22:51 11/09/21 22:51 General appearance: no acute distress Neck: Positive: neck supple Cardiac: Positive: Reg Rate and Rhythm Lungs: Positive: clear to auscultation. Negative: Wheezes Neuro: Positive: Other (Unable to examine as not following commands) Abdomen: Positive: Soft Skin: Negative: Rash Extremities: Absent: edema Results 11/11/21 04:00 11/11/21 04:00 Lipids 11/10/21 Range/Units 11:15 Triglycerides 81 (2-149) mg/dL Cholesterol 195 (50-199) mg/dL HDL Cholesterol 47 (40-59) mg/dL Cholesterol/HDL Ratio 4.14 % - Imaging and Cardiology Echo: report reviewed (Normal LV ejection fraction with mild LVH. No PFO based on color Doppler and agitated saline injection.) EKG interpretations - Telemetry EKG Rhythm: Sinus Rhythm AV and intraventricular conduction: left bundle branch block (Incomplete) Chamber hypertrophy or enlargement: left ventricular hypertro Assessment and Plan Patient admitted with acute stroke of the left KRISTI territory. Patient failed speech evaluation and has dysphagia. She is not a candidate for RICARDO at this point. We can perform RICARDO once she passes the speech evaluation and she is more alert and oriented. Since her CTA showed multiple stenosis in cranial arteries would recommend high intensity statins. Telemetry showed a lot of artifacts without any evidence of atrial fibrillation. - Patient Problems (1) Abnormal electrocardiogram [ECG] [EKG] Current Visit: Yes Status: Acute (2) AMS (altered mental status) Current Visit: Yes Status: Acute (3) CVA (cerebral vascular accident) Current Visit: Yes Status: Acute
[2021-11-13] MEDS: LOSARTAN 50 MG TAB PO SCH (13:57)
[2021-11-13] MEDS: VALPROIC ACID 250 MG/5 ML ORAL LIQD FEEDTUBE SCH ×2 (13:57→21:01)
[2021-11-13] MEDS: amLODIPine 10 MG TAB PO SCH (13:58)
[2021-11-13] MEDS: ACETAMINOPHEN 325 MG TAB PO PRN ×2 (13:58→14:03)
[2021-11-13] MEDS: FAMOTIDINE 20 MG TAB FEEDTUBE SCH ×2 (13:58→21:02)
[2021-11-13] MEDS: carvediloL 12.5 MG TAB PO SCH ×2 (13:58→21:01)
[2021-11-13] MEDS: ASPIRIN 325 MG TAB PO SCH (14:06)
--- NOTE | 2021-11-14 09:39 | Progress Note ---
Assessment and Plan Assessment and plan: #Acute ischemic CVA #Acute metabolic encephalopathy Patient evaluated by telemetry neurology in the ED, and she was now found to be a candidate for tPA. Unremarkable CT head noncontrast. 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 MRI brain without contrast revealing "tiny focus of acute infarct in the left frontal opercular region. No hemorrhage or adverse mass-effect." TTE (11/10/2021) revealing EF 55-60% with normal-sized LV, mild concentric LVH, septal hypertrophy, abnormal diastolic function, normal-sized RV, normal RV systolic function, normal LA size, normal RA, no evidence of ASD or PFO. Hemoglobin A1c 5.4. Pending lipid profile. Continue aspirin 325 mg daily per rectum until the patient is cleared by speech therapy. Patient can be started on atorvastatin 40 mg daily when she can tolerate p.o. Neurology consulted; recommendations appreciated -Cardiology consulted for RICARDO, will not be completed at this time due to patients mental status Physical therapy, Occupational Therapy: recommending subacute rehab #Dysphagia secondary to acute ischemic CVA Speech therapy consulted; recommending patient remain n.p.o. due to high aspiration risk. Continue tube feeds; will plan for PEG tube if needed #Hypertension - home medications: Amlodipine 10 mg daily, Coreg 12.5 mg twice daily, losartan 100 mg daily, and clonidine patch 0.5 mg - current medications: Amlodipine 10 mg daily, Coreg 12.5 mg twice daily, losartan 100 mg daily, and clonidine patch 0.5 mg + PRN hydralazine - SBP goal <160 and DBP goal <90 while inpatient - continue to monitor #Seizure disorder continue valproic acid 500 mg twice daily -valproic acid level ordered -EEG ordered by Neurology #Ground-level fall #Occipital scalp laceration Unremarkable imaging. Laceration repaired in the ED with jarrett. Continue analgesics as needed. #Mild protein caloric malnutrition Albumin 3.0 Currently holding dietary supplementation as the patient is n.p.o. and pending speech evaluation in the setting of acute ischemic CVA #Advanced care planning -Disease education conducted, care plan discussed, diagnoses discussed, prognosis discussed, and NOK (daughter) Mindy Dong who acknowledges understanding with care plan. We discussed possible need for an alternative need for nutrition for the patient for safe discharge. We discussed the possibility of PEG tube placement pending speech therapy evaluation. Ms. Dong is agreeable to PEG tube. -Time: +30 min History Interval history: No acute events overnight per nursing. At baseline the patient opens her eyes but does not speak since the stroke. Hospitalist Physical - Physical exam Narrative exam: GENERAL: Well-developed well-nourished. In no acute distress. HEENT: NGT in place @ 40cc/hr NECK: Supple. CHEST/LUNGS: CTAB on room air HEART/CARDIOVASCULAR: RRR. No murmur, rubs or gallops appreciated. ABDOMEN: +BS. NT/ND. SKIN: Scalp laceration healing appropriately with jarrett. NEURO: Unable to assess. MUSCULOSKELETAL: No joint effusion EXTREMITIES: No cyanosis, clubbing or edema. PSYCH: Unable to assess. Patient nonverbal and nonresponsive to commands after stroke. - Constitutional Vitals: Temp Pulse Resp BP Pulse Ox 98.1 F 76 16 144/92 98 11/14/21 03:37 11/14/21 03:37 11/14/21 03:37 11/14/21 03:37 11/14/21 03:37 General appearance: Present: no acute distress, well-nourished, other (Nonverbal) HEART Score - HEART Score Troponin: Troponin T < 0.010 ng/mL (0.00-0.029) 11/09/21 23:33 Results - Labs CBC & Chem 7: 11/11/21 04:00 11/14/21 Unknown Labs: Laboratory Last Values WBC 10.0 K/mm3 (4.5-11.0) 11/11/21 04:00 RBC 3.82 M/mm3 (3.65-5.03) 11/11/21 04:00 Hgb 11.9 gm/dl (10.1-14.3) 11/11/21 04:00 Hct 34.7 % (30.3-42.9) D 11/11/21 04:00 MCV 91 fl (79-97) 11/11/21 04:00 MCH 31 pg (28-32) 11/11/21 04:00 MCHC 34 % (30-34) 11/11/21 04:00 RDW 23.2 % (13.2-15.2) H 11/11/21 04:00 Plt Count 205 K/mm3 (140-440) 11/11/21 04:00 Lymph % (Auto) 29.3 % (13.4-35.0) 11/09/21 23:33 [place] % (Auto) 8.0 % (0.0-7.3) H 11/09/21 23:33 Eos % (Auto) 1.9 % (0.0-4.3) 11/09/21 23: Baso % (Auto) 0.2 % (0.0-1.8) 11/09/21 23: Lymph # (Auto) 2.7 K/mm3 (1.2-5.4) 11/09/21 23:33 [place] # (Auto) 0.7 K/mm3 (0.0-0.8) 11/09/21 23: Eos # (Auto) 0.2 K/mm3 (0.0-0.4) 11/09/21 23:33 Baso # (Auto) 0.0 K/mm3 (0.0-0.1) 11/09/21 23:33 Add Manual Diff Complete 11/11/21 04:00 Total Counted 100 11/11/21 04:00 Seg Neutrophils % 60.6 % (40.0-70.0) 11/09/21 23:33 Seg Neuts % (Manual) 70.0 % (40.0-70.0) 11/11/21 04:00 Band Neutrophils % 1.0 % 11/11/21 04:00 Lymphocytes % (Manual) 20.0 % (13.4-35.0) 11/11/21 04:00 Reactive Lymphs % (Man) 0 % 11/11/21 04:00 Monocytes % (Manual) 9.0 % (0.0-7.3) H 11/11/21 04:00 Eosinophils % (Manual) 0 % (0.0-4.3) 11/11/21 04:00 Basophils % (Manual) 0 % (0.0-1.8) 11/11/21 04:00 Metamyelocytes % 0 % 11/11/21 04:00 Myelocytes % 0 % 11/11/21 04:00 Promyelocytes % 0 % 11/11/21 04:00 Blast Cells % 0 % 11/11/21 04:00 Nucleated RBC % Not Reportable 11/11/21 04:00 Seg Neutrophils # 5.7 K/mm3 (1.8-7.7) 11/09/21 23:33 Seg Neutrophils # Man 7.0 K/mm3 (1.8-7.7) 11/11/21 04:00 Band Neutrophils # 0.1 K/mm3 11/11/21 04:00 Lymphocytes # (Manual) 2.0 K/mm3 (1.2-5.4) 11/11/21 04:00 Abs React Lymphs (Man) 0.0 K/mm3 11/11/21 04:00 Monocytes # (Manual) 0.9 K/mm3 (0.0-0.8) H 11/11/21 04:00 Eosinophils # (Manual) 0.0 K/mm3 (0.0-0.4) 11/11/21 04:00 Basophils # (Manual) 0.0 K/mm3 (0.0-0.1) 11/11/21 04:00 Metamyelocytes # 0.0 K/mm3 11/11/21 04:00 Myelocytes # 0.0 K/mm3 11/11/21 04:00 Promyelocytes # 0.0 K/mm3 11/11/21 04:00 Blast Cells # 0.0 K/mm3 11/11/21 04:00 WBC Morphology Not Reportable 11/11/21 04:00 Hypersegmented Neuts Not Reportable 11/11/21 04:00 Hyposegmented Neuts Not Reportable 11/11/21 04:00 Hypogranular Neuts Not Reportable 11/11/21 04:00 Smudge Cells Not Reportable 11/11/21 04:00 Toxic Granulation Not Reportable 11/11/21 04:00 Toxic Vacuolation Not Reportable 11/11/21 04:00 Dohle Bodies Not Reportable 11/11/21 04:00 Pelger-Huet Anomaly Not Reportable 11/11/21 04:00 Keyonna Rods Not Reportable 11/11/21 04:00 Platelet Estimate Consistent w auto 11/11/21 04:00 Clumped Platelets Not Reportable 11/11/21 04:00 Plt Clumps, EDTA Not Reportable 11/11/21 04:00 Large Platelets Not Reportable 11/11/21 04:00 Giant Platelets Not Reportable 11/11/21 04:00 Platelet Satelliting Not Reportable 11/11/21 04:00 Plt Morphology Comment Not Reportable 11/11/21 04:00 RBC Morphology Not Reportable 11/11/21 04:00 Dimorphic RBCs Not Reportable 11/11/21 04:00 Polychromasia Not Reportable 11/11/21 04:00 Hypochromasia 1+ 11/11/21 04:00 Poikilocytosis Not Reportable 11/11/21 04:00 Anisocytosis 3+ 11/11/21 04:00 Microcytosis Not Reportable 11/11/21 04:00 Macrocytosis Not Reportable 11/11/21 04:00 Spherocytes Not Reportable 11/11/21 04:00 Pappenheimer Bodies Not Reportable 11/11/21 04:00 Sickle Cells Not Reportable 11/11/21 04:00 Target Cells Not Reportable 11/11/21 04:00 Tear Drop Cells Not Reportable 11/11/21 04:00 Ovalocytes Not Reportable 11/11/21 04:00 Helmet Cells Not Reportable 11/11/21 04:00 Geronmio-Roslyn Bodies Not Reportable 11/11/21 04:00 Ely Rings Not Reportable 11/11/21 04:00 Toñito Cells Not Reportable 11/11/21 04:00 Bite Cells Not Reportable 11/11/21 04:00 Crenated Cell Not Reportable 11/11/21 04:00 Elliptocytes Not Reportable 11/11/21 04:00 Acanthocytes (Spur) 1+ 11/11/21 04:00 Rouleaux Not Reportable 11/11/21 04:00 Hemoglobin C Crystals Not Reportable 11/11/21 04:00 Schistocytes Not Reportable 11/11/21 04:00 Malaria parasites Not Reportable 11/11/21 04:00 Quinn Bodies Not Reportable 11/11/21 04:00 Hem Pathologist Commnt No 11/11/21 04:00 PT 15.3 Sec. (12.2-14.9) H 11/09/21 23:33 INR 1.09 (0.87-1.13) 11/09/21 23:33 APTT 26.4 Sec. (24.2-36.6) 11/09/21 23:33 Thrombin Time 18.4 Sec. (15.1-19.6) 11/09/21 23:33 Sodium 139 mmol/L (137-145) 11/11/21 04:00 Potassium 3.5 mmol/L (3.6-5.0) L 11/11/21 04:00 Chloride 101.9 mmol/L (98-107) 11/11/21 04:00 Carbon Dioxide 22 mmol/L (22-30) 11/11/21 04:00 Anion Gap 19 mmol/L 11/11/21 04:00 BUN 14 mg/dL (7-17) 11/11/21 04:00 Creatinine 0.9 mg/dL (0.6-1.2) 11/11/21 04:00 Estimated GFR > 60 ml/min 11/11/21 04:00 BUN/Creatinine Ratio 16 % 11/11/21 04:00 Glucose 137 mg/dL (65-100) H 11/11/21 04:00 POC Glucose 83 mg/dL (70-105) 11/14/21 04:57 Hemoglobin A1c 5.4 % (4-6) 11/11/21 11:50 Calcium 9.3 mg/dL (8.4-10.2) 11/11/21 04:00 Total Bilirubin 0.20 mg/dL (0.1-1.2) 11/09/21 23:33 AST 29 units/L (5-40) 11/09/21 23:33 ALT 41 units/L (7-56) 11/09/21 23:33 Alkaline Phosphatase 51 units/L (35-129) 11/09/21 23:33 Total Creatine Kinase 73 units/L (30-135) 11/09/21 23:33 CK-MB (CK-2) 3.0 ng/mL (0.0-4.0) 11/09/21 23:33 CK-MB (CK-2) Rel Index 4.1 (0-4) H 11/09/21 23:33 Troponin T < 0.010 ng/mL (0.00-0.029) 11/09/21 23:33 Total Protein 5.9 g/dL (6.3-8.2) L 11/09/21 23:33 Albumin 3.0 g/dL (3.9-5) L 11/09/21 23:33 Albumin/Globulin Ratio 1.0 % 11/09/21 23:33 Triglycerides 81 mg/dL (2-149) 11/10/21 11:15 Cholesterol 195 mg/dL (50-199) 11/10/21 11:15 LDL Cholesterol Direct 120 mg/dL (50-130) 11/10/21 11:15 HDL Cholesterol 47 mg/dL (40-59) 11/10/21 11:15 Cholesterol/HDL Ratio 4.14 % 11/10/21 11:15 [place]/IV: Voiding Method External Female Catheter Active Medications - Current Medications Current Medications: Generic Name Dose Route Start Last Admin Trade Name Freq PRN Reason Stop Dose Admin Acetaminophen 650 mg 11/10/21 03:15 11/13/21 14:03 Acetaminophen 325 Mg Tab PO 650 mg Q4H PRN Administration Pain MILD(1-3)/Fever >100.5/PEREZ Albuterol 2.5 mg 11/10/21 10:37 Albuterol 2.5 Mg/3 Ml Nebu IH Q4HRT PRN Shortness Of Breath Amlodipine Besylate 10 mg 11/12/21 10:30 11/13/21 13:58 Amlodipine 10 Mg Tab PO 10 mg DAILY HUNTER Administration Lipase/Protease/Amylase 1 each 11/12/21 09:00 Lipase 10,500/Protease 25,000/Amylase 43,750 (Units) Dr Garcia FEEDTUBE PRN PRN For Clogged Feeding Tube Aspirin 325 mg 11/10/21 10:00 11/13/21 14:06 Aspirin 325 Mg Tab PO 325 mg QDAY HUNTER Administration Atorvastatin Calcium 40 mg 11/10/21 22:00 11/13/21 21:02 Atorvastatin 40 Mg Tab PO 40 mg QHS HUNTER Administration Carvedilol 12.5 mg 11/11/21 10:00 11/13/21 21:01 Carvedilol 12.5 Mg Tab PO 12.5 mg BID HUNTER Administration Clonidine HCl 0.3 mg 11/10/21 21:00 11/10/21 21:01 Clonidine Tts 0.3 Mg/24 Hr Patch TD 0.3 mg Sa HUNTER Administration Famotidine 20 mg 11/12/21 22:00 11/13/21 21:02 Famotidine 20 Mg Tab FEEDTUBE 20 mg BID HUNTER Administration Hydralazine HCl 10 mg 11/10/21 20:26 11/12/21 04:29 Hydralazine 20 Mg/1 Ml Inj IV 10 mg Q4HR PRN Administration Blood Pressure Losartan Potassium 100 mg 11/12/21 10:00 11/13/21 13:57 Losartan 50 Mg Tab PO 100 mg QDAY HUNTER Administration Morphine Sulfate 2 mg 11/10/21 03:15 Morphine 2 Mg/1 Ml Inj IV Q4H PRN Pain, Moderate (4-6) Morphine Sulfate 4 mg 11/10/21 03:15 Morphine 4 Mg/1 Ml Inj IV Q4H PRN Pain , Severe (7-10) Ondansetron HCl 4 mg 11/10/21 03:15 Ondansetron 4 Mg/2 Ml Inj IV Q8H PRN Nausea And Vomiting Simple Syrup 15 ml 11/12/21 09:00 Simple Syrup 15 Ml FEEDTUBE PRN PRN Hypoglycemia Simple Syrup 30 ml 11/12/21 09:00 Simple Syrup 15 Ml FEEDTUBE PRN PRN Hypoglycemia Sodium Bicarbonate 325 mg 11/12/21 09:00 Sodium Bicarbonate 325 Mg Tab FEEDTUBE PRN PRN For Clogged Feeding Tube Sodium Chloride 10 ml 11/10/21 10:00 11/13/21 21:02 Sodium Chloride 0.9% 10 Ml Flush Syringe IV 10 ml BID HUNTER Administration Sodium Chloride 10 ml 11/10/21 03:15 Sodium Chloride 0.9% 10 Ml Flush Syringe IV PRN PRN LINE FLUSH Valproic Acid 500 mg 11/12/21 14:00 11/13/21 21:01 Valproic Acid 250 Mg/5 Ml Oral Liqd FEEDTUBE 500 mg BID HUNTER Administration Nutrition/Malnutrition Assess - Dietary Evaluation Nutrition/Malnutrition Findings: Nutrition Notes Start: 11/11/21 10:10 Freq: Status: Active Protocol: Document 11/13/21 12:02 RAY (Rec: 11/13/21 12:37 RAY [id number]) Nutrition Notes Need for Assessment generated from: site supervising technical operator Initial or Follow up Brief Note Current Diagnosis Hypertension,Malnutrition, Stroke Other Pertinent Diagnosis Fall/Head Injury, Seizures, Metabolic Encephalopathy, Dysphagia. Current Diet NPO (since 11/13 00:23), TF- Jevity 1.2 Allan @ 55 ml/hr ( from D 11/13). Height 5 ft 5 in Weight 56.4 kg [place] Body Weight (kg) 56.81 BMI 20.7 Weight change and time frame No body weight change reported in 2 days. Weight Status Appropriate Subjective/Other Information RD consult for amrit F/U on TF tolerance/continuation, and skin risk assessments. Pt currently on NPO. Pt was receiving TF-Glucerna 1 .2 Allan @ 40 ml/hr, instead of the prescribed TF-Jevity 1.2 Allan @ 55 ml/hr, according to RN notes. I spoke with RN over the phone and she told me that it should be a mistake and will correct it by switching to TF- Jevity 1.2 Allan @ 55 ml/hr, LULA. RN note on 11/12/21 20:13: Bedside patient report received from out going nurse. patient in bed sleepy, easily arouse by name or touch. respiration even and non labored on room air. No distress noted. patient on feed tube on glucerna @40mls/ hr Will continue to monitor - END OF NOTE. Pt didn't pass Swallow Screen at this time, according to MANUFACTURING WORKER notes. MANUFACTURING WORKER note on 11/12/21 11:57: Swallowing function has been assessed. Patient demonstrates an oral/pharyngeal phase dysphagia with spillage from the oral cavity, a delayed swallow reflex and aspiration. Recommend continuing NPO status. Will follow. Informed the patient's nurse. - END OF NOTE. Pt is on Room Air, O2 saturation @ 96%, according to Physical Assessment History notes. Pt shows scalp lacerations as signs of concern for skin risk at the time, according to Physical Assessment History notes. Percent of energy/protein needs met: Pt currently on NPO. Resume prescribed TF-Jevity 1. 2 Allan @ 55 ml/hr provides for energy/protein needs (1,579 Kcal/73 g) during LOS, 100% Kcal; 109% AA. Skin Integrity/Comment Scalp lacerations. #1 Nutrition Diagnosis Swallowing difficulty Comments: MANUFACTURING WORKER note on 11/12/21 11:57: Swallowing function has been assessed. Patient demonstrates an oral/pharyngeal phase dysphagia with spillage from the oral cavity, a delayed swallow reflex and aspiration. Recommend continuing NPO status. Will follow. Informed the patient's nurse. - END OF NOTE. Diagnosis Progress(for reassessment Continues documentation) Is patient on ventilator? No Is Patient Ambulatory and/or Out of Bed No REE-([place]-St Jeor-confined to bed) 1331.508 Kcal/Kg value to use for calculation 28 Approximate Energy Requirements Using 1579 kcal/Kg Calculation Used for Recommendations Kcal/kg Additional Notes Protein: 1-1.2 g/Kg ABW; 56-67 g/day. Fluids: 1 ml/Kcal, or as per MD. Nutrition Intervention Nutrition Support: Resume TF-Jevity 1.2 Allan @ 55 ml/hr. Flush: 90 ml water Q 4 hr, or as per MD. Kcal 1,579 Protein (gm) 73 Carbohydrates (gm) 223 Fat (gm) 52 Fluid (mL) 1,062 Fiber (gm) 24 % RDI: 100% Kcal; 109% AA. Goal #1 Provide at least 75% of energy /protein needs through Enteral Feeding during LOS. Follow-Up By: 11/14/21 Additional Comments Continue monitoring TF tolerance and BM.
[2021-11-14 09:59] LABS: BUN/Creatinine Ratio 23; Blood Urea Nitrogen 23 mg/dL (7-17); Calcium 8.6 mg/dL (8.4-10.2); Hemolysis Index 0
[2021-11-14] MEDS: ASPIRIN 325 MG TAB PO SCH (10:03)
[2021-11-14] MEDS: LOSARTAN 50 MG TAB PO SCH (10:03)
[2021-11-14] MEDS: VALPROIC ACID 250 MG/5 ML ORAL LIQD FEEDTUBE SCH ×2 (10:03→21:12)
[2021-11-14] MEDS: carvediloL 12.5 MG TAB PO SCH ×2 (10:03→21:11)
[2021-11-14] MEDS: amLODIPine 10 MG TAB PO SCH (10:03)
[2021-11-14] MEDS: FAMOTIDINE 20 MG TAB FEEDTUBE SCH ×2 (10:03→21:12)
--- NOTE | 2021-11-15 08:09 | Progress Note ---
Assessment and Plan Assessment and plan: #Acute ischemic CVA #Acute metabolic encephalopathy Patient evaluated by telemetry neurology in the ED, and she was now found to be a candidate for tPA. Unremarkable CT head noncontrast. 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 MRI brain without contrast revealing "tiny focus of acute infarct in the left frontal opercular region. No hemorrhage or adverse mass-effect." TTE (11/10/2021) revealing EF 55-60% with normal-sized LV, mild concentric LVH, septal hypertrophy, abnormal diastolic function, normal-sized RV, normal RV systolic function, normal LA size, normal RA, no evidence of ASD or PFO. Hemoglobin A1c 5.4. Continue aspirin 325 mg daily per rectum until the patient is cleared by speech therapy. Patient can be started on atorvastatin 40 mg daily when she can tolerate p.o. Neurology consulted; recommendations appreciated -Cardiology consulted for RICARDO, will not be completed at this time due to patient s mental status Physical therapy, Occupational Therapy: recommending subacute rehab; pending [facility] #Neurogenic dysphagia Speech therapy consulted; recommending patient remain n.p.o. due to high aspiration risk. Continue tube feeds; plan for PEG tube placement pending daughters consent by GI - Attempted to contact patients Daughter Ms. Dong and was unable to leave a voicemail - GI consulted, assistance appreciated #Hypertension - home medications: Amlodipine 10 mg daily, Coreg 12.5 mg twice daily, losartan 100 mg daily, and clonidine patch 0.5 mg - current medications: Amlodipine 10 mg daily, Coreg 12.5 mg twice daily, losartan 100 mg daily, and clonidine patch 0.5 mg + PRN hydralazine - SBP goal <160 and DBP goal <90 while inpatient - continue to monitor #Seizure disorder continue valproic acid 500 mg twice daily -valproic acid level ordered -EEG ordered by Neurology #Ground-level fall #Occipital scalp laceration Unremarkable imaging. Laceration repaired in the ED with jarrett. Continue analgesics as needed. #Mild protein caloric malnutrition Albumin 3.0 Currently holding dietary supplementation as the patient is n.p.o. and pending speech evaluation in the setting of acute ischemic CVA History Interval history: No acute events overnight per nursing. At baseline the patient opens her eyes but does not speak or move. Appears to be comfortable. Tube feeds running. Hospitalist Physical - Physical exam Narrative exam: GENERAL: Well-developed well-nourished. In no acute distress. HEENT: NGT in place @ 40cc/hr NECK: Supple. CHEST/LUNGS: CTAB on room air HEART/CARDIOVASCULAR: RRR. No murmur, rubs or gallops appreciated. ABDOMEN: +BS. NT/ND. SKIN: Scalp laceration healing appropriately with jarrett. NEURO: Unable to assess. EXTREMITIES: No cyanosis, clubbing or edema. PSYCH: Unable to assess. Patient nonverbal and nonresponsive to commands after stroke. - Constitutional Vitals: Temp Pulse Resp BP Pulse Ox 97.6 F 87 18 124/89 98 11/15/21 04:34 11/15/21 04:34 11/15/21 04:34 11/15/21 04:34 11/15/21 04:34 General appearance: Present: no acute distress, well-nourished, other (Nonverbal) HEART Score - HEART Score Troponin: Troponin T < 0.010 ng/mL (0.00-0.029) 11/09/21 23:33 Results - Labs CBC & Chem 7: 11/11/21 04:00 11/14/21 Unknown Labs: Laboratory Last Values WBC 10.0 K/mm3 (4.5-11.0) 11/11/21 04:00 RBC 3.82 M/mm3 (3.65-5.03) 11/11/21 04:00 Hgb 11.9 gm/dl (10.1-14.3) 11/11/21 04:00 Hct 34.7 % (30.3-42.9) D 11/11/21 04:00 MCV 91 fl (79-97) 11/11/21 04:00 MCH 31 pg (28-32) 11/11/21 04:00 MCHC 34 % (30-34) 11/11/21 04:00 RDW 23.2 % (13.2-15.2) H 11/11/21 04:00 Plt Count 205 K/mm3 (140-440) 11/11/21 04:00 Lymph % (Auto) 29.3 % (13.4-35.0) 11/09/21 23:33 [place] % (Auto) 8.0 % (0.0-7.3) H 11/09/21 23:33 Eos % (Auto) 1.9 % (0.0-4.3) 11/09/21 23:33 Baso % (Auto) 0.2 % (0.0-1.8) 11/09/21 23:33 Lymph # (Auto) 2.7 K/mm3 (1.2-5.4) 11/09/21 23:33 [place] # (Auto) 0.7 K/mm3 (0.0-0.8) 11/09/21 23:33 Eos # (Auto) 0.2 K/mm3 (0.0-0.4) 11/09/21 23:33 Baso # (Auto) 0.0 K/mm3 (0.0-0.1) 11/09/21 23:33 Add Manual Diff Complete 11/11/21 04:00 Total Counted 100 11/11/21 04:00 Seg Neutrophils % 60.6 % (40.0-70.0) 11/09/21 23:33 Seg Neuts % (Manual) 70.0 % (40.0-70.0) 11/11/21 04:00 Band Neutrophils % 1.0 % 11/11/21 04:00 Lymphocytes % (Manual) 20.0 % (13.4-35.0) 11/11/21 04:00 Reactive Lymphs % (Man) 0 % 11/11/21 04:00 Monocytes % (Manual) 9.0 % (0.0-7.3) H 11/11/21 04:00 Eosinophils % (Manual) 0 % (0.0-4.3) 11/11/21 04:00 Basophils % (Manual) 0 % (0.0-1.8) 11/11/21 04:00 Metamyelocytes % 0 % 11/11/21 04:00 Myelocytes % 0 % 11/11/21 04:00 Promyelocytes % 0 % 11/11/21 04:00 Blast Cells % 0 % 11/11/21 04:00 Nucleated RBC % Not Reportable 11/11/21 04:00 Seg Neutrophils # 5.7 K/mm3 (1.8-7.7) 11/09/21 23:33 Seg Neutrophils # Man 7.0 K/mm3 (1.8-7.7) 11/11/21 04:00 Band Neutrophils # 0.1 K/mm3 11/11/21 04:00 Lymphocytes # (Manual) 2.0 K/mm3 (1.2-5.4) 11/11/21 04:00 Abs React Lymphs (Man) 0.0 K/mm3 11/11/21 04:00 Monocytes # (Manual) 0.9 K/mm3 (0.0-0.8) H 11/11/21 04:00 Eosinophils # (Manual) 0.0 K/mm3 (0.0-0.4) 11/11/21 04:00 Basophils # (Manual) 0.0 K/mm3 (0.0-0.1) 11/11/21 04:00 Metamyelocytes # 0.0 K/mm3 11/11/21 04:00 Myelocytes # 0.0 K/mm3 11/11/21 04:00 Promyelocytes # 0.0 K/mm3 11/11/21 04:00 Blast Cells # 0.0 K/mm3 11/11/21 04:00 WBC Morphology Not Reportable 11/11/21 04:00 Hypersegmented Neuts Not Reportable 11/11/21 04:00 Hyposegmented Neuts Not Reportable 11/11/21 04:00 Hypogranular Neuts Not Reportable 11/11/21 04:00 Smudge Cells Not Reportable 11/11/21 04:00 Toxic Granulation Not Reportable 11/11/21 04:00 Toxic Vacuolation Not Reportable 11/11/21 04:00 Dohle Bodies Not Reportable 11/11/21 04:00 Pelger-Huet Anomaly Not Reportable 11/11/21 04:00 Keyonna Rods Not Reportable 11/11/21 04:00 Platelet Estimate Consistent w auto 11/11/21 04:00 Clumped Platelets Not Reportable 11/11/21 04:00 Plt Clumps, EDTA Not Reportable 11/11/21 04:00 Large Platelets Not Reportable 11/11/21 04:00 Giant Platelets Not Reportable 11/11/21 04:00 Platelet Satelliting Not Reportable 11/11/21 04:00 Plt Morphology Comment Not Reportable 11/11/21 04:00 RBC Morphology Not Reportable 11/11/21 04:00 Dimorphic RBCs Not Reportable 11/11/21 04:00 Polychromasia Not Reportable 11/11/21 04:00 Hypochromasia 1+ 11/11/21 04:00 Poikilocytosis Not Reportable 11/11/21 04:00 Anisocytosis 3+ 11/11/21 04:00 Microcytosis Not Reportable 11/11/21 04:00 Macrocytosis Not Reportable 11/11/21 04:00 Spherocytes Not Reportable 11/11/21 04:00 Pappenheimer Bodies Not Reportable 11/11/21 04:00 Sickle Cells Not Reportable 11/11/21 04:00 Target Cells Not Reportable 11/11/21 04:00 Tear Drop Cells Not Reportable 11/11/21 04:00 Ovalocytes Not Reportable 11/11/21 04:00 Helmet Cells Not Reportable 11/11/21 04:00 Geronimo-Pierpont Bodies Not Reportable 11/11/21 04:00 Edna Rings Not Reportable 11/11/21 04:00 Isabella Cells Not Reportable 11/11/21 04:00 Bite Cells Not Reportable 11/11/21 04:00 Crenated Cell Not Reportable 11/11/21 04:00 Elliptocytes Not Reportable 11/11/21 04:00 Acanthocytes (Spur) 1+ 11/11/21 04:00 Rouleaux Not Reportable 11/11/21 04:00 Hemoglobin C Crystals Not Reportable 11/11/21 04:00 Schistocytes Not Reportable 11/11/21 04:00 Malaria parasites Not Reportable 11/11/21 04:00 Quinn Bodies Not Reportable 11/11/21 04:00 Hem Pathologist Commnt No 11/11/21 04:00 PT 15.3 Sec. (12.2-14.9) H 11/09/21 23:33 INR 1.09 (0.87-1.13) 11/09/21 23:33 APTT 26.4 Sec. (24.2-36.6) 11/09/21 23:33 Thrombin Time 18.4 Sec. (15.1-19.6) 11/09/21 23:33 Sodium 139 mmol/L (137-145) 11/14/21 Unknown Potassium 4.1 mmol/L (3.6-5.0) 11/14/21 Unknown Chloride 105.2 mmol/L (98-107) 11/14/21 Unknown Carbon Dioxide 25 mmol/L (22-30) 11/14/21 Unknown Anion Gap 13 mmol/L 11/14/21 Unknown BUN 23 mg/dL (7-17) H 11/14/21 Unknown Creatinine 1.0 mg/dL (0.6-1.2) 11/14/21 Unknown Estimated GFR > 60 ml/min 11/14/21 Unknown BUN/Creatinine Ratio 23 % 11/14/21 Unknown Glucose 91 mg/dL (65-100) 11/14/21 Unknown POC Glucose 93 mg/dL (70-105) 11/15/21 06:36 Hemoglobin A1c 5.4 % (4-6) 11/11/21 11:50 Calcium 8.6 mg/dL (8.4-10.2) 11/14/21 Unknown Total Bilirubin 0.20 mg/dL (0.1-1.2) 11/09/21 23:33 AST 29 units/L (5-40) 11/09/21 23:33 ALT 41 units/L (7-56) 11/09/21 23:33 Alkaline Phosphatase 51 units/L (35-129) 11/09/21 23:33 Ammonia 19.0 umol/L (25-60) L 11/14/21 09:39 Total Creatine Kinase 73 units/L (30-135) 11/09/21 23:33 CK-MB (CK-2) 3.0 ng/mL (0.0-4.0) 11/09/21 23:33 CK-MB (CK-2) Rel Index 4.1 (0-4) H 11/09/21 23:33 Troponin T < 0.010 ng/mL (0.00-0.029) 11/09/21 23:33 Total Protein 5.9 g/dL (6.3-8.2) L 11/09/21 23:33 Albumin 3.0 g/dL (3.9-5) L 11/09/21 23:33 Albumin/Globulin Ratio 1.0 % 11/09/21 23:33 Triglycerides 81 mg/dL (2-149) 11/10/21 11:15 Cholesterol 195 mg/dL (50-199) 11/10/21 11:15 LDL Cholesterol Direct 120 mg/dL (50-130) 11/10/21 11:15 HDL Cholesterol 47 mg/dL (40-59) 11/10/21 11:15 Cholesterol/HDL Ratio 4.14 % 11/10/21 11:15 Valproic Acid 46.7 ug/mL (50-100) L 11/14/21 09:39 SARS-CoV-2 (PCR) Negative (Negative) 11/14/21 12:38 [place]/IV: Voiding Method External Female Catheter Active Medications - Current Medications Current Medications: Generic Name Dose Route Start Last Admin Trade Name Freq PRN Reason Stop Dose Admin Acetaminophen 650 mg 11/10/21 03:15 11/13/21 14:03 Acetaminophen 325 Mg Tab PO 650 mg Q4H PRN Administration Pain MILD(1-3)/Fever >100.5/PEREZ Albuterol 2.5 mg 11/10/21 10:37 Albuterol 2.5 Mg/3 Ml Nebu IH Q4HRT PRN Shortness Of Breath Amlodipine Besylate 10 mg 11/12/21 10:30 11/14/21 10:03 Amlodipine 10 Mg Tab PO 10 mg DAILY HUNTER Administration Lipase/Protease/Amylase 1 each 11/12/21 09:00 Lipase 10,500/Protease 25,000/Amylase 43,750 (Units) Dr Garcia FEEDTKESHAV PRN PRN For Clogged Feeding Tube Aspirin 325 mg 11/10/21 10:00 11/14/21 10:03 Aspirin 325 Mg Tab PO 325 mg QDAY HUNTER Administration Atorvastatin Calcium 40 mg 11/10/21 22:00 11/14/21 21:11 Atorvastatin 40 Mg Tab PO 40 mg QHS HUNTER Administration Carvedilol 12.5 mg 11/11/21 10:00 11/14/21 21:11 Carvedilol 12.5 Mg Tab PO 12.5 mg BID HUNTER Administration Clonidine HCl 0.3 mg 11/10/21 21:00 11/10/21 21:01 Clonidine Tts 0.3 Mg/24 Hr Patch TD 0.3 mg Sa HUNTER Administration Famotidine 20 mg 11/12/21 22:00 11/14/21 21:12 Famotidine 20 Mg Tab FEEDTUBE 20 mg BID HUNTER Administration Hydralazine HCl 10 mg 11/10/21 20:26 11/12/21 04:29 Hydralazine 20 Mg/1 Ml Inj IV 10 mg Q4HR PRN Administration Blood Pressure Losartan Potassium 100 mg 11/12/21 10:00 11/14/21 10:03 Losartan 50 Mg Tab PO 100 mg QDAY HUNTER Administration Morphine Sulfate 2 mg 11/10/21 03:15 Morphine 2 Mg/1 Ml Inj IV Q4H PRN Pain, Moderate (4-6) Morphine Sulfate 4 mg 11/10/21 03:15 Morphine 4 Mg/1 Ml Inj IV Q4H PRN Pain , Severe (7-10) Ondansetron HCl 4 mg 11/10/21 03:15 Ondansetron 4 Mg/2 Ml Inj IV Q8H PRN Nausea And Vomiting Simple Syrup 15 ml 11/12/21 09:00 Simple Syrup 15 Ml FEEDTUBE PRN PRN Hypoglycemia Simple Syrup 30 ml 11/12/21 09:00 Simple Syrup 15 Ml FEEDTUBE PRN PRN Hypoglycemia Sodium Bicarbonate 325 mg 11/12/21 09:00 Sodium Bicarbonate 325 Mg Tab FEEDTUBE PRN PRN For Clogged Feeding Tube Sodium Chloride 10 ml 11/10/21 10:00 11/14/21 21:12 Sodium Chloride 0.9% 10 Ml Flush Syringe IV 10 ml BID HUNTER Administration Sodium Chloride 10 ml 11/10/21 03:15 Sodium Chloride 0.9% 10 Ml Flush Syringe IV PRN PRN LINE FLUSH Valproic Acid 500 mg 11/12/21 14:00 11/14/21 21:12 Valproic Acid 250 Mg/5 Ml Oral Liqd FEEDTUBE 500 mg BID HUNTER Administration Nutrition/Malnutrition Assess - Dietary Evaluation Nutrition/Malnutrition Findings: Nutrition Notes Start: 11/11/21 10:10 Freq: Status: Active Protocol: Document 11/13/21 12:02 RAY (Rec: 11/13/21 12:37 RAY [id number]) Nutrition Notes Need for Assessment generated from: business development officer Initial or Follow up Brief Note Current Diagnosis Hypertension,Malnutrition, Stroke Other Pertinent Diagnosis Fall/Head Injury, Seizures, Metabolic Encephalopathy, Dysphagia. Current Diet NPO (since 11/13 00:23), TF- Jevity 1.2 Allan @ 55 ml/hr ( from D 11/13). Height 5 ft 5 in Weight 56.4 kg [place] Body Weight (kg) 56.81 BMI 20.7 Weight change and time frame No body weight change reported in 2 days. Weight Status Appropriate Subjective/Other Information RD consult for amrit Best/Favian on TF tolerance/continuation, and skin risk assessments. Pt currently on NPO. Pt was receiving TF-Glucerna 1 .2 Allan @ 40 ml/hr, instead of the prescribed TF-Jevity 1.2 Allan @ 55 ml/hr, according to RN notes. I spoke with RN over the phone and she told me that it should be a mistake and will correct it by switching to TF- Jevity 1.2 Allan @ 55 ml/hr, LULA. RN note on 11/12/21 20:13: Bedside patient report received from out going nurse. patient in bed sleepy, easily arouse by name or touch. respiration even and non labored on room air. No distress noted. patient on feed tube on glucerna @40mls/ hr Will continue to monitor - END OF NOTE. Pt didn't pass Swallow Screen at this time, according to TEAMSITE DEVELOPER notes. TEAMSITE DEVELOPER note on 11/12/21 11:57: Swallowing function has been assessed. Patient demonstrates an oral/pharyngeal phase dysphagia with spillage from the oral cavity, a delayed swallow reflex and aspiration. Recommend continuing NPO status. Will follow. Informed the patient's nurse. - END OF NOTE. Pt is on Room Air, O2 saturation @ 96%, according to Physical Assessment History notes. Pt shows scalp lacerations as signs of concern for skin risk at the time, according to Physical Assessment History notes. Percent of energy/protein needs met: Pt currently on NPO. Resume prescribed TF-Jevity 1. 2 Allan @ 55 ml/hr provides for energy/protein needs (1,579 Kcal/73 g) during LOS, 100% Kcal; 109% AA. Skin Integrity/Comment Scalp lacerations. #1 Nutrition Diagnosis Swallowing difficulty Comments: TEAMSITE DEVELOPER note on 11/12/21 11:57: Swallowing function has been assessed. Patient demonstrates an oral/pharyngeal phase dysphagia with spillage from the oral cavity, a delayed swallow reflex and aspiration. Recommend continuing NPO status. Will follow. Informed the patient's nurse. - END OF NOTE. Diagnosis Progress(for reassessment Continues documentation) Is patient on ventilator? No Is Patient Ambulatory and/or Out of Bed No REE-(Acadia-St. Jeor-confined to bed) 1331.508 Kcal/Kg value to use for calculation 28 Approximate Energy Requirements Using 1579 kcal/Kg Calculation Used for Recommendations Kcal/kg Additional Notes Protein: 1-1.2 g/Kg ABW; 56-67 g/day. Fluids: 1 ml/Kcal, or as per MD. Nutrition Intervention Nutrition Support: Resume TF-Jevity 1.2 Allan @ 55 ml/hr. Flush: 90 ml water Q 4 hr, or as per MD. Kcal 1,579 Protein (gm) 73 Carbohydrates (gm) 223 Fat (gm) 52 Fluid (mL) 1,062 Fiber (gm) 24 % RDI: 100% Kcal; 109% AA. Goal #1 Provide at least 75% of energy /protein needs through Enteral Feeding during LOS. Follow-Up By: 11/16/21 Additional Comments Continue monitoring TF tolerance and BM.
[2021-11-15] MEDS: amLODIPine 10 MG TAB PO SCH (09:16)
[2021-11-15] MEDS: ASPIRIN 325 MG TAB PO SCH (09:16)
[2021-11-15] MEDS: FAMOTIDINE 20 MG TAB FEEDTUBE SCH ×2 (09:17→21:43)
[2021-11-15] MEDS: carvediloL 12.5 MG TAB PO SCH ×2 (09:17→21:42)
[2021-11-15] MEDS: LOSARTAN 50 MG TAB PO SCH (09:17)
[2021-11-15] MEDS: VALPROIC ACID 250 MG/5 ML ORAL LIQD FEEDTUBE SCH ×2 (09:18→21:43)
--- NOTE | 2021-11-15 10:11 | Gastroenterology Consultation ---
History of Present Illness - Reason for Consult Consult date: 11/15/21 Neurogenic Dysphagia Requesting physician: SUZY YARBROUGH - History of Present Illness The patient is a 66 yo female admitted with a CVA. She is minimally responsive and can not provide a history. History is per Hospitalist/chart. Could not reach daughter by phone. The patient has failed ST evaluation, and is being fed with NG tube. The IMS service contacted daughter and she has agreed to the PEG tube. There is no hx of assisted feeding in the past. Past History Past Medical History: hypertension, seizures, stroke ((admit)), other Past Surgical History: No surgical history Social history: no significant social history Family history: hypertension Medications and Allergies Allergies Allergy/AdvReac Type Severity Reaction Status Date / Time No Known Allergies Allergy Verified 11/12/21 11:09 Home Medications Medication Instructions Recorded Confirmed Last Taken Type Aspirin [Aspirin BABY CHEW TAB] 81 mg PO DAILY 11/11/21 11/12/21 Unknown History Divalproex ER [Depakote ER] 500 mg PO BID 11/11/21 11/12/21 Unknown History Losartan [Cozaar] 100 mg PO QDAY 11/11/21 11/12/21 Unknown History carvediloL [Coreg] 12.5 mg PO BID 11/11/21 11/12/21 Unknown History Atorvastatin Calcium [Lipitor] 80 mg PO QDAY 11/12/21 11/12/21 Unknown History Cyanocobalamin [Vitamin B-12] 1,000 mcg PO DAILY 11/12/21 11/12/21 Unknown History Melatonin [Melatonin 10MG TAB] 10 mg PO QDAY 11/12/21 11/12/21 Unknown History OLANzapine ZYDIS [ZyPREXA Zydis] 5 mg PO QPM 11/12/21 11/12/21 Unknown History Thiamine [Vitamin B-1] 100 mg PO QDAY 11/12/21 11/12/21 Unknown History Active Meds: Active Medications Acetaminophen (Acetaminophen 325 Mg Tab) 650 mg PO Q4H PRN PRN Reason: Pain MILD(1-3)/Fever >100.5/PEREZ Last Admin: 11/13/21 14:03 Dose: 650 mg Albuterol (Albuterol 2.5 Mg/3 Ml Nebu) 2.5 mg IH Q4HRT PRN PRN Reason: Shortness Of Breath Amlodipine Besylate (Amlodipine 10 Mg Tab) 10 mg PO DAILY [facility] Last Admin: 11/15/21 09:16 Dose: 10 mg Lipase/Protease/Amylase (Lipase 10,500/Protease 25,000/Amylase 43,750 (Units) Dr Garcia) 1 each FEEDTUBE PRN PRN PRN Reason: For Clogged Feeding Tube Aspirin (Aspirin 325 Mg Tab) 325 mg PO QDAY [facility] Last Admin: 11/15/21 09:16 Dose: 325 mg Atorvastatin Calcium (Atorvastatin 40 Mg Tab) 40 mg PO QHS [facility] Last Admin: 11/14/21 21:11 Dose: 40 mg Carvedilol (Carvedilol 12.5 Mg Tab) 12.5 mg PO BID [facility] Last Admin: 11/15/21 09:17 Dose: 12.5 mg Clonidine HCl (Clonidine Tts 0.3 Mg/24 Hr Patch) 0.3 mg TD Sa [facility] Last Admin: 11/10/21 21:01 Dose: 0.3 mg Famotidine (Famotidine 20 Mg Tab) 20 mg FEEDTUBE BID [facility] Last Admin: 11/15/21 09:17 Dose: 20 mg Hydralazine HCl (Hydralazine 20 Mg/1 Ml Inj) 10 mg IV Q4HR PRN PRN Reason: Blood Pressure Last Admin: 11/12/21 04:29 Dose: 10 mg Losartan Potassium (Losartan 50 Mg Tab) 100 mg PO QDAY [facility] Last Admin: 11/15/21 09:17 Dose: 100 mg Morphine Sulfate (Morphine 2 Mg/1 Ml Inj) 2 mg IV Q4H PRN PRN Reason: Pain, Moderate (4-6) Morphine Sulfate (Morphine 4 Mg/1 Ml Inj) 4 mg IV Q4H PRN PRN Reason: Pain , Severe (7-10) Ondansetron HCl (Ondansetron 4 Mg/2 Ml Inj) 4 mg IV Q8H PRN PRN Reason: Nausea And Vomiting Simple Syrup (Simple Syrup 15 Ml) 15 ml FEEDTUBE PRN PRN PRN Reason: Hypoglycemia Simple Syrup (Simple Syrup 15 Ml) 30 ml FEEDTUBE PRN PRN PRN Reason: Hypoglycemia Sodium Bicarbonate (Sodium Bicarbonate 325 Mg Tab) 325 mg FEEDTUBE PRN PRN PRN Reason: For Clogged Feeding Tube Sodium Chloride (Sodium Chloride 0.9% 10 Ml Flush Syringe) 10 ml IV BID [facility] Last Admin: 11/15/21 09:18 Dose: 10 ml Sodium Chloride (Sodium Chloride 0.9% 10 Ml Flush Syringe) 10 ml IV PRN PRN PRN Reason: LINE FLUSH Valproic Acid (Valproic Acid 250 Mg/5 Ml Oral Liqd) 500 mg FEEDTUBE BID [facility] Last Admin: 11/15/21 09:18 Dose: 500 mg I HAVE REVIEWED/RECONCILED MEDICATIONS Review of Systems - Review of Systems ROS unobtainable: due to mental status Exam - Constitutional Vital Signs: Temp Pulse Resp BP Pulse Ox 97.6 F 76 18 124/89 98 11/15/21 04:34 11/15/21 09:17 11/15/21 04:34 11/15/21 09:17 11/15/21 04:34 General appearance: no acute distress - EENT Eyes: PERRL, EOM intact ENT: hearing intact, clear oral mucosa - Neck Neck: supple, normal ROM - Respiratory Respiratory effort: normal Respiratory: bilateral: CTA - Cardiovascular Rhythm: regular Heart Sounds: Present: S1 & S2 Extremities: no ischemia, No edema - Gastrointestinal General gastrointestinal: Present: soft, non-tender, non-distended, other (No major surgical scars) - Integumentary Integumentary: Present: clear, warm, dry - Neurologic Neurological: other (Does not follow commands, verbalize, or make purposeful movement) - Psychiatric Psychiatric: other (Unable to assess) - Labs CBC & Chem 7: 11/11/21 04:00 11/14/21 Unknown Lab Results: Laboratory Results - last 24 hr 11/14/21 11/14/21 11/14/21 09:39 09:39 12:06 POC Glucose 88 Ammonia 19.0 L Valproic Acid 46.7 L SARS-CoV-2 (PCR) 11/14/21 11/14/21 11/15/21 12:38 16:49 00:43 POC Glucose 112 H 111 H Ammonia Valproic Acid SARS-CoV-2 (PCR) Negative 11/15/21 06:36 POC Glucose 93 Ammonia Valproic Acid SARS-CoV-2 (PCR) Assessment and Plan - Patient Problems (1) Neurogenic dysphagia Current Visit: Yes Status: Acute Plan to address problem: - The patient meets criteria for assisted feeding via PEG. - I will place on schedule for an EGD/PEG tomorrow but family will need to be available for consent.
[2021-11-15] MEDS ORDERED: MAGNESIUM HYDROXIDE (MOM) ORAL LIQD UDC PO SCH (10:12)
[2021-11-15] MEDS: POLYETHYLENE GLYCOL 3350 17 GM POWDER PO SCH (12:29)
[2021-11-16 05:20] LABS: Hemoglobin 10.1 gm/dl (10.1-14.3); Mean Corpuscular HGB Conc 34 % (30-34); Mean Corpuscular Volume 93 fl (79-97); Platelet Count 163 K/mm3 (140-440); Red Blood Count 3.21 M/mm3 (3.65-5.03)
[2021-11-16 05:21] LABS: Red Cell Distribution Width 22.5 % (13.2-15.2)
[2021-11-16 05:35] LABS: BUN/Creatinine Ratio 35; Blood Urea Nitrogen 28 mg/dL (7-17); Hemolysis Index 31
[2021-11-16] MEDS: FAMOTIDINE 20 MG TAB FEEDTUBE SCH ×2 (10:54→21:25)
[2021-11-16] MEDS: carvediloL 12.5 MG TAB PO SCH ×2 (10:54→21:25)
[2021-11-16] MEDS: ASPIRIN 325 MG TAB PO SCH (10:55)
[2021-11-16] MEDS: POLYETHYLENE GLYCOL 3350 17 GM POWDER PO SCH (10:55)
[2021-11-16] MEDS: VALPROIC ACID 250 MG/5 ML ORAL LIQD FEEDTUBE SCH ×2 (10:56→21:25)
[2021-11-16] MEDS: amLODIPine 10 MG TAB PO SCH (10:57)
[2021-11-16] MEDS: LOSARTAN 50 MG TAB PO SCH (10:57)
--- NOTE | 2021-11-16 11:45 | Progress Note ---
Assessment and Plan Assessment and plan: #Acute ischemic CVA #Acute metabolic encephalopathy Patient evaluated by telemetry neurology in the ED, and she was now found to be a candidate for tPA. Unremarkable CT head noncontrast. 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 MRI brain without contrast revealing "tiny focus of acute infarct in the left frontal opercular region. No hemorrhage or adverse mass-effect." TTE (11/10/2021) revealing EF 55-60% with normal-sized LV, mild concentric LVH, septal hypertrophy, abnormal diastolic function, normal-sized RV, normal RV systolic function, normal LA size, normal RA, no evidence of ASD or PFO. Hemoglobin A1c 5.4. Continue aspirin 325 mg daily per rectum until the patient is cleared by speech therapy. Patient can be started on atorvastatin 40 mg daily when she can tolerate p.o. Neurology consulted; recommendations appreciated -Cardiology consulted for RICARDO, will not be completed at this time due to patient s mental status Physical therapy, Occupational Therapy: recommending subacute rehab; pending [facility] #Neurogenic dysphagia Speech therapy consulted; recommending patient remain n.p.o. due to high aspiration risk. Continue tube feeds; plan for PEG tube placement pending daughters consent by GI; patients daughter called today and still ok with PEG placement - Attempted to contact patients Daughter Ms. Dong and was unable to leave a voicemail - GI consulted, assistance appreciated #Hypertension - home medications: Amlodipine 10 mg daily, Coreg 12.5 mg twice daily, losartan 100 mg daily, and clonidine patch 0.5 mg - current medications: Amlodipine 10 mg daily, Coreg 12.5 mg twice daily, losartan 100 mg daily, and clonidine patch 0.5 mg + PRN hydralazine - SBP goal <160 and DBP goal <90 while inpatient - continue to monitor #Seizure disorder continue valproic acid 500 mg twice daily -valproic acid level ordered -EEG ordered by Neurology #Ground-level fall #Occipital scalp laceration Unremarkable imaging. Laceration repaired in the ED with jarrett. Continue analgesics as needed. #Mild protein caloric malnutrition Albumin 3.0 Currently holding dietary supplementation as the patient is n.p.o. and pending speech evaluation in the setting of acute ischemic CVA History Interval history: No acute events overnight per nursing. Patient grandson at bedside. Patient minimally responsive to tactile stimuli. Plan for PEG tube later today pending next of kin consent with GI. Hospitalist Physical - Physical exam Narrative exam: GENERAL: Well-developed well-nourished. In no acute distress. HEENT: NGT in place NECK: Supple. CHEST/LUNGS: CTAB on room air HEART/CARDIOVASCULAR: RRR. No murmur, rubs or gallops appreciated. ABDOMEN: +BS. NT/ND. SKIN: Scalp laceration healing appropriately with jarrett. NEURO: Unable to assess. EXTREMITIES: No cyanosis, clubbing or edema. PSYCH: Unable to assess. Patient nonverbal and nonresponsive to commands after stroke. - Constitutional Vitals: Temp Pulse Resp BP Pulse Ox 98.8 F 70 18 123/79 98 11/16/21 08:30 11/16/21 10:57 11/16/21 08:30 11/16/21 10:57 11/16/21 08:30 General appearance: Present: no acute distress, well-nourished, other (Nonverbal) HEART Score - HEART Score Troponin: Troponin T < 0.010 ng/mL (0.00-0.029) 11/09/21 23:33 Results - Labs CBC & Chem 7: 11/16/21 04:25 11/16/21 04:25 Labs: Laboratory Last Values WBC 9.7 K/mm3 (4.5-11.0) 11/16/21 04:25 RBC 3.21 M/mm3 (3.65-5.03) L 11/16/21 04:25 Hgb 10.1 gm/dl (10.1-14.3) 11/16/21 04:25 Hct 30.0 % (30.3-42.9) L 11/16/21 04:25 MCV 93 fl (79-97) 11/16/21 04:25 MCH 32 pg (28-32) 11/16/21 04:25 MCHC 34 % (30-34) 11/16/21 04:25 RDW 22.5 % (13.2-15.2) H 11/16/21 04:25 Plt Count 163 K/mm3 (140-440) 11/16/21 04:25 Lymph % (Auto) 29.3 % (13.4-35.0) 11/09/21 23:33 [place] % (Auto) 8.0 % (0.0-7.3) H 11/09/21 23:33 Eos % (Auto) 1.9 % (0.0-4.3) 11/09/21 23:33 Baso % (Auto) 0.2 % (0.0-1.8) 11/09/21 23: Lymph # (Auto) 2.7 K/mm3 (1.2-5.4) 11/09/21 23: [place] # (Auto) 0.7 K/mm3 (0.0-0.8) 11/09/21 23: Eos # (Auto) 0.2 K/mm3 (0.0-0.4) 11/09/21 23: Baso # (Auto) 0.0 K/mm3 (0.0-0.1) 11/09/21 23:33 Add Manual Diff Complete 11/11/21 04:00 Total Counted 100 11/11/21 04:00 Seg Neutrophils % 60.6 % (40.0-70.0) 11/09/21 23:33 Seg Neuts % (Manual) 70.0 % (40.0-70.0) 11/11/21 04:00 Band Neutrophils % 1.0 % 11/11/21 04:00 Lymphocytes % (Manual) 20.0 % (13.4-35.0) 11/11/21 04:00 Reactive Lymphs % (Man) 0 % 11/11/21 04:00 Monocytes % (Manual) 9.0 % (0.0-7.3) H 11/11/21 04:00 Eosinophils % (Manual) 0 % (0.0-4.3) 11/11/21 04:00 Basophils % (Manual) 0 % (0.0-1.8) 11/11/21 04:00 Metamyelocytes % 0 % 11/11/21 04:00 Myelocytes % 0 % 11/11/21 04:00 Promyelocytes % 0 % 11/11/21 04:00 Blast Cells % 0 % 11/11/21 04:00 Nucleated RBC % Not Reportable 11/11/21 04:00 Seg Neutrophils # 5.7 K/mm3 (1.8-7.7) 11/09/21 23:33 Seg Neutrophils # Man 7.0 K/mm3 (1.8-7.7) 11/11/21 04:00 Band Neutrophils # 0.1 K/mm3 11/11/21 04:00 Lymphocytes # (Manual) 2.0 K/mm3 (1.2-5.4) 11/11/21 04:00 Abs React Lymphs (Man) 0.0 K/mm3 11/11/21 04:00 Monocytes # (Manual) 0.9 K/mm3 (0.0-0.8) H 11/11/21 04:00 Eosinophils # (Manual) 0.0 K/mm3 (0.0-0.4) 11/11/21 04:00 Basophils # (Manual) 0.0 K/mm3 (0.0-0.1) 11/11/21 04:00 Metamyelocytes # 0.0 K/mm3 11/11/21 04:00 Myelocytes # 0.0 K/mm3 11/11/21 04:00 Promyelocytes # 0.0 K/mm3 11/11/21 04:00 Blast Cells # 0.0 K/mm3 11/11/21 04:00 WBC Morphology Not Reportable 11/11/21 04:00 Hypersegmented Neuts Not Reportable 11/11/21 04:00 Hyposegmented Neuts Not Reportable 11/11/21 04:00 Hypogranular Neuts Not Reportable 11/11/21 04:00 Smudge Cells Not Reportable 11/11/21 04:00 Toxic Granulation Not Reportable 11/11/21 04:00 Toxic Vacuolation Not Reportable 11/11/21 04:00 Dohle Bodies Not Reportable 11/11/21 04:00 Pelger-Huet Anomaly Not Reportable 11/11/21 04:00 Keyonna Rods Not Reportable 11/11/21 04:00 Platelet Estimate Consistent w auto 11/11/21 04:00 Clumped Platelets Not Reportable 11/11/21 04:00 Plt Clumps, EDTA Not Reportable 11/11/21 04:00 Large Platelets Not Reportable 11/11/21 04:00 Giant Platelets Not Reportable 11/11/21 04:00 Platelet Satelliting Not Reportable 11/11/21 04:00 Plt Morphology Comment Not Reportable 11/11/21 04:00 RBC Morphology Not Reportable 11/11/21 04:00 Dimorphic RBCs Not Reportable 11/11/21 04:00 Polychromasia Not Reportable 11/11/21 04:00 Hypochromasia 1+ 11/11/21 04:00 Poikilocytosis Not Reportable 11/11/21 04:00 Anisocytosis 3+ 11/11/21 04:00 Microcytosis Not Reportable 11/11/21 04:00 Macrocytosis Not Reportable 11/11/21 04:00 Spherocytes Not Reportable 11/11/21 04:00 Pappenheimer Bodies Not Reportable 11/11/21 04:00 Sickle Cells Not Reportable 11/11/21 04:00 Target Cells Not Reportable 11/11/21 04:00 Tear Drop Cells Not Reportable 11/11/21 04:00 Ovalocytes Not Reportable 11/11/21 04:00 Helmet Cells Not Reportable 11/11/21 04:00 Geronimo-Benwood Bodies Not Reportable 11/11/21 04:00 Theresa Rings Not Reportable 11/11/21 04:00 Toñito Cells Not Reportable 11/11/21 04:00 Bite Cells Not Reportable 11/11/21 04:00 Crenated Cell Not Reportable 11/11/21 04:00 Elliptocytes Not Reportable 11/11/21 04:00 Acanthocytes (Spur) 1+ 11/11/21 04:00 Rouleaux Not Reportable 11/11/21 04:00 Hemoglobin C Crystals Not Reportable 11/11/21 04:00 Schistocytes Not Reportable 11/11/21 04:00 Malaria parasites Not Reportable 11/11/21 04:00 Quinn Bodies Not Reportable 11/11/21 04:00 Hem Pathologist Commnt No 11/11/21 04:00 PT 15.3 Sec. (12.2-14.9) H 11/09/21 23:33 INR 1.09 (0.87-1.13) 11/09/21 23:33 APTT 26.4 Sec. (24.2-36.6) 11/09/21 23:33 Thrombin Time 18.4 Sec. (15.1-19.6) 11/09/21 23:33 Sodium 132 mmol/L (137-145) L D 11/16/21 04:25 Potassium 4.7 mmol/L (3.6-5.0) 11/16/21 04:25 Chloride 101.6 mmol/L (98-107) 11/16/21 04:25 Carbon Dioxide 24 mmol/L (22-30) 11/16/21 04:25 Anion Gap 11 mmol/L 11/16/21 04:25 BUN 28 mg/dL (7-17) H 11/16/21 04:25 Creatinine 0.8 mg/dL (0.6-1.2) 11/16/21 04:25 Estimated GFR > 60 ml/min 11/16/21 04:25 BUN/Creatinine Ratio 35 % 11/16/21 04:25 Glucose 90 mg/dL (65-100) 11/16/21 04:25 POC Glucose 117 mg/dL (70-105) H 11/16/21 00:05 Hemoglobin A1c 5.4 % (4-6) 11/11/21 11:50 Calcium 9.0 mg/dL (8.4-10.2) 11/16/21 04:25 Total Bilirubin 0.20 mg/dL (0.1-1.2) 11/09/21 23:33 AST 29 units/L (5-40) 11/09/21 23:33 ALT 41 units/L (7-56) 11/09/21 23:33 Alkaline Phosphatase 51 units/L (35-129) 11/09/21 23:33 Ammonia 19.0 umol/L (25-60) L 11/14/21 09:39 Total Creatine Kinase 73 units/L (30-135) 11/09/21 23:33 CK-MB (CK-2) 3.0 ng/mL (0.0-4.0) 11/09/21 23:33 CK-MB (CK-2) Rel Index 4.1 (0-4) H 11/09/21 23:33 Troponin T < 0.010 ng/mL (0.00-0.029) 11/09/21 23:33 Total Protein 5.9 g/dL (6.3-8.2) L 11/09/21 23:33 Albumin 3.0 g/dL (3.9-5) L 11/09/21 23:33 Albumin/Globulin Ratio 1.0 % 11/09/21 23:33 Triglycerides 81 mg/dL (2-149) 11/10/21 11:15 Cholesterol 195 mg/dL (50-199) 11/10/21 11:15 LDL Cholesterol Direct 120 mg/dL (50-130) 11/10/21 11:15 HDL Cholesterol 47 mg/dL (40-59) 11/10/21 11:15 Cholesterol/HDL Ratio 4.14 % 11/10/21 11:15 Valproic Acid 46.7 ug/mL (50-100) L 11/14/21 09:39 SARS-CoV-2 (PCR) Negative (Negative) 11/14/21 12:38 Chowd[place]/IV: Voiding Method External Female Catheter Active Medications - Current Medications Current Medications: Generic Name Dose Route Start Last Admin Trade Name Freq PRN Reason Stop Dose Admin Acetaminophen 650 mg 11/10/21 03:15 11/13/21 14:03 Acetaminophen 325 Mg Tab PO 650 mg Q4H PRN Administration Pain MILD(1-3)/Fever >100.5/PEREZ Albuterol 2.5 mg 11/10/21 10:37 Albuterol 2.5 Mg/3 Ml Nebu IH Q4HRT PRN Shortness Of Breath Amlodipine Besylate 10 mg 11/12/21 10:30 11/16/21 10:57 Amlodipine 10 Mg Tab PO 10 mg DAILY HUNTER Administration Lipase/Protease/Amylase 1 each 11/12/21 09:00 Lipase 10,500/Protease 25,000/Amylase 43,750 (Units) Dr Garcia FEEDTUBE PRN PRN For Clogged Feeding Tube Aspirin 325 mg 11/10/21 10:00 11/16/21 10:55 Aspirin 325 Mg Tab PO 325 mg QDAY HUNTER Administration Atorvastatin Calcium 40 mg 11/10/21 22:00 11/15/21 21:43 Atorvastatin 40 Mg Tab PO 40 mg QHS HUNTER Administration Carvedilol 12.5 mg 11/11/21 10:00 11/16/21 10:54 Carvedilol 12.5 Mg Tab PO 12.5 mg BID HUNTER Administration Clonidine HCl 0.3 mg 11/10/21 21:00 11/10/21 21:01 Clonidine Tts 0.3 Mg/24 Hr Patch TD 0.3 mg Sa HUNTER Administration Famotidine 20 mg 11/12/21 22:00 11/16/21 10:54 Famotidine 20 Mg Tab FEEDTUBE 20 mg BID HUNTER Administration Hydralazine HCl 10 mg 11/10/21 20:26 11/12/21 04:29 Hydralazine 20 Mg/1 Ml Inj IV 10 mg Q4HR PRN Administration Blood Pressure Losartan Potassium 100 mg 11/12/21 10:00 11/16/21 10:57 Losartan 50 Mg Tab PO 100 mg QDAY HUNTER Administration Morphine Sulfate 2 mg 11/10/21 03:15 Morphine 2 Mg/1 Ml Inj IV Q4H PRN Pain, Moderate (4-6) Morphine Sulfate 4 mg 11/10/21 03:15 Morphine 4 Mg/1 Ml Inj IV Q4H PRN Pain , Severe (7-10) Ondansetron HCl 4 mg 11/10/21 03:15 Ondansetron 4 Mg/2 Ml Inj IV Q8H PRN Nausea And Vomiting Polyethylene Glycol 17 gm 11/15/21 12:00 11/16/21 10:55 Polyethylene Glycol 3350 17 Gm Powder PO 17 gm QDAY HUNTER Administration Simple Syrup 15 ml 11/12/21 09:00 Simple Syrup 15 Ml FEEDTUBE PRN PRN Hypoglycemia Simple Syrup 30 ml 11/12/21 09:00 Simple Syrup 15 Ml FEEDTUBE PRN PRN Hypoglycemia Sodium Bicarbonate 325 mg 11/12/21 09:00 Sodium Bicarbonate 325 Mg Tab FEEDTUBE PRN PRN For Clogged Feeding Tube Sodium Chloride 10 ml 11/10/21 10:00 11/16/21 10:55 Sodium Chloride 0.9% 10 Ml Flush Syringe IV 10 ml BID HUNTER Administration Sodium Chloride 10 ml 11/10/21 03:15 Sodium Chloride 0.9% 10 Ml Flush Syringe IV PRN PRN LINE FLUSH Valproic Acid 500 mg 11/12/21 14:00 11/16/21 10:56 Valproic Acid 250 Mg/5 Ml Oral Liqd FEEDTUBE 500 mg BID HUNTER Administration Nutrition/Malnutrition Assess - Dietary Evaluation Nutrition/Malnutrition Findings: Nutrition Notes Start: 11/11/21 10:10 Freq: Status: Active Protocol: Document 11/13/21 12:02 RAY (Rec: 11/13/21 12:37 RAY [id number]) Nutrition Notes Need for Assessment generated from: mems engineer Initial or Follow up Brief Note Current Diagnosis Hypertension,Malnutrition, Stroke Other Pertinent Diagnosis Fall/Head Injury, Seizures, Metabolic Encephalopathy, Dysphagia. Current Diet NPO (since 11/13 00:23), TF- Jevity 1.2 Allan @ 55 ml/hr ( from D 11/13). Height 5 ft 5 in Weight 56.4 kg [place] Body Weight (kg) 56.81 BMI 20.7 Weight change and time frame No body weight change reported in 2 days. Weight Status Appropriate Subjective/Other Information RD consult for amrit F/U on TF tolerance/continuation, and skin risk assessments. Pt currently on NPO. Pt was receiving TF-Glucerna 1 .2 Allan @ 40 ml/hr, instead of the prescribed TF-Jevity 1.2 Allan @ 55 ml/hr, according to RN notes. I spoke with RN over the phone and she told me that it should be a mistake and will correct it by switching to TF- Jevity 1.2 Allan @ 55 ml/hr, LULA. RN note on 11/12/21 20:13: Bedside patient report received from out going nurse. patient in bed sleepy, easily arouse by name or touch. respiration even and non labored on room air. No distress noted. patient on feed tube on glucerna @40mls/ hr Will continue to monitor - END OF NOTE. Pt didn't pass Swallow Screen at this time, according to YARN [employer]Y [employer] WORKER notes. [employer] WORKER note on 11/12/21 11:57: Swallowing function has been assessed. Patient demonstrates an oral/pharyngeal phase dysphagia with spillage from the oral cavity, a delayed swallow reflex and aspiration. Recommend continuing NPO status. Will follow. Informed the patient's nurse. - END OF NOTE. Pt is on Room Air, O2 saturation @ 96%, according to Physical Assessment History notes. Pt shows scalp lacerations as signs of concern for skin risk at the time, according to Physical Assessment History notes. Percent of energy/protein needs met: Pt currently on NPO. Resume prescribed TF-Jevity 1. 2 Allan @ 55 ml/hr provides for energy/protein needs (1,579 Kcal/73 g) during LOS, 100% Kcal; 109% AA. Skin Integrity/Comment Scalp lacerations. #1 Nutrition Diagnosis Swallowing difficulty Comments: [employer] WORKER note on 11/12/21 11:57: Swallowing function has been assessed. Patient demonstrates an oral/pharyngeal phase dysphagia with spillage from the oral cavity, a delayed swallow reflex and aspiration. Recommend continuing NPO status. Will follow. Informed the patient's nurse. - END OF NOTE. Diagnosis Progress(for reassessment Continues documentation) Is patient on ventilator? No Is Patient Ambulatory and/or Out of Bed No REE-([facility]-confined to bed) 1331.508 Kcal/Kg value to use for calculation 28 Approximate Energy Requirements Using 1579 kcal/Kg Calculation Used for Recommendations Kcal/kg Additional Notes Protein: 1-1.2 g/Kg ABW; 56-67 g/day. Fluids: 1 ml/Kcal, or as per MD. Nutrition Intervention Nutrition Support: Resume TF-Jevity 1.2 Allan @ 55 ml/hr. Flush: 90 ml water Q 4 hr, or as per MD. Kcal 1,579 Protein (gm) 73 Carbohydrates (gm) 223 Fat (gm) 52 Fluid (mL) 1,062 Fiber (gm) 24 % RDI: 100% Kcal; 109% AA. Goal #1 Provide at least 75% of energy /protein needs through Enteral Feeding during LOS. Follow-Up By: 11/16/21 Additional Comments Continue monitoring TF tolerance and BM.
--- NOTE | 2021-11-16 17:46 | Event Note ---
Date: 11/16/[address] were unable to place to feeding tube today due to staffing issues. We have rescheduled for Friday. I alerted the patient's daughter Ms Dong, and she does want to proceed on Friday.
--- NOTE | 2021-11-16 18:46 | XRay Report ---
Abdomen single view INDICATION: Abdominal pain IMPRESSION: Esophagogastric tube terminates in the region of the upper stomach Signer Name: González Patel MD Signed: 11/16/2021 6:41 PM Workstation Name: State
--- NOTE | 2021-11-17 08:22 | Progress Note ---
Assessment and Plan Assessment and plan: #Acute ischemic CVA #Acute metabolic encephalopathy Patient evaluated by telemetry neurology in the ED, and she was now found to be a candidate for tPA. Unremarkable CT head noncontrast. 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 MRI brain without contrast revealing "tiny focus of acute infarct in the left frontal opercular region. No hemorrhage or adverse mass-effect." TTE (11/10/2021) revealing EF 55-60% with normal-sized LV, mild concentric LVH, septal hypertrophy, abnormal diastolic function, normal-sized RV, normal RV systolic function, normal LA size, normal RA, no evidence of ASD or PFO. Hemoglobin A1c 5.4. Continue aspirin 325 mg daily per rectum until the patient is cleared by speech therapy. Patient can be started on atorvastatin 40 mg daily when she can tolerate p.o. Neurology consulted; recommendations appreciated -Cardiology consulted for RICARDO, will not be completed at this time due to patient s mental status Physical therapy, Occupational Therapy: recommending subacute rehab; pending [facility] #Neurogenic dysphagia Speech therapy consulted; recommending patient remain n.p.o. due to high aspiration risk. Continue tube feeds; plan for PEG tube placement Friday - GI consulted, assistance appreciated #Hypertension - home medications: Amlodipine 10 mg daily, Coreg 12.5 mg twice daily, losartan 100 mg daily, and clonidine patch 0.5 mg - current medications: Amlodipine 10 mg daily, Coreg 12.5 mg twice daily, losartan 100 mg daily, and clonidine patch 0.5 mg + PRN hydralazine - SBP goal <160 and DBP goal <90 while inpatient - continue to monitor #Seizure disorder continue valproic acid 500 mg twice daily -EEG ordered by Neurology #Ground-level fall #Occipital scalp laceration Unremarkable imaging. Laceration repaired in the ED with jarrett. Continue analgesics as needed. #Mild protein caloric malnutrition Albumin 3.0 Currently holding dietary supplementation as the patient is n.p.o. and pending speech evaluation in the setting of acute ischemic CVA History Interval history: Patient minimally responsive to tactile stimuli. TF running at 55cc/hr. Plan for PEG tube Friday. Hospitalist Physical - Physical exam Narrative exam: GENERAL: Well-developed well-nourished. In no acute distress. HEENT: NGT in place NECK: Supple. CHEST/LUNGS: CTAB on room air HEART/CARDIOVASCULAR: RRR. No murmur, rubs or gallops appreciated. ABDOMEN: +BS. NT/ND. NEURO: Unable to assess. EXTREMITIES: No cyanosis, clubbing or edema. PSYCH: Unable to assess. Patient nonverbal and nonresponsive to commands after stroke. - Constitutional Vitals: Temp Pulse Resp BP Pulse Ox 98.5 F 79 20 139/85 98 11/17/21 03:35 11/17/21 03:35 11/17/21 03:35 11/17/21 03:35 11/17/21 03:35 General appearance: Present: no acute distress, well-nourished, other (Nonverbal) HEART Score - HEART Score Troponin: Troponin T < 0.010 ng/mL (0.00-0.029) 11/09/21 23:33 Results - Labs CBC & Chem 7: 11/16/21 04:25 11/16/21 04:25 Labs: Laboratory Last Values WBC 9.7 K/mm3 (4.5-11.0) 11/16/21 04:25 RBC 3.21 M/mm3 (3.65-5.03) L 11/16/21 04:25 Hgb 10.1 gm/dl (10.1-14.3) 11/16/21 04:25 Hct 30.0 % (30.3-42.9) L 11/16/21 04:25 MCV 93 fl (79-97) 11/16/21 04:25 MCH 32 pg (28-32) 11/16/21 04:25 MCHC 34 % (30-34) 11/16/21 04:25 RDW 22.5 % (13.2-15.2) H 11/16/21 04:25 Plt Count 163 K/mm3 (140-440) 11/16/21 04:25 Lymph % (Auto) 29.3 % (13.4-35.0) 11/09/21 23:33 [place] % (Auto) 8.0 % (0.0-7.3) H 11/09/21 23:33 Eos % (Auto) 1.9 % (0.0-4.3) 11/09/21 23: Baso % (Auto) 0.2 % (0.0-1.8) 11/09/21 23: Lymph # (Auto) 2.7 K/mm3 (1.2-5.4) 11/09/21 23: [place] # (Auto) 0.7 K/mm3 (0.0-0.8) 11/09/21: Eos # (Auto) 0.2 K/mm3 (0.0-0.4) 11/09/21: Baso # (Auto) 0.0 K/mm3 (0.0-0.1) 11/09/21 23:33 Add Manual Diff Complete 11/11/21 04:00 Total Counted 100 11/11/21 04:00 Seg Neutrophils % 60.6 % (40.0-70.0) 11/09/21 23: Seg Neuts % (Manual) 70.0 % (40.0-70.0) 11/11/21 04:00 Band Neutrophils % 1.0 % 11/11/21 04:00 Lymphocytes % (Manual) 20.0 % (13.4-35.0) 11/11/21 04:00 Reactive Lymphs % (Man) 0 % 11/11/21 04:00 Monocytes % (Manual) 9.0 % (0.0-7.3) H 11/11/21 04:00 Eosinophils % (Manual) 0 % (0.0-4.3) 11/11/21 04:00 Basophils % (Manual) 0 % (0.0-1.8) 11/11/21 04:00 Metamyelocytes % 0 % 11/11/21 04:00 Myelocytes % 0 % 11/11/21 04:00 Promyelocytes % 0 % 11/11/21 04:00 Blast Cells % 0 % 11/11/21 04:00 Nucleated RBC % Not Reportable 11/11/21 04:00 Seg Neutrophils # 5.7 K/mm3 (1.8-7.7) 11/09/21 23:33 Seg Neutrophils # Man 7.0 K/mm3 (1.8-7.7) 11/11/21 04:00 Band Neutrophils # 0.1 K/mm3 11/11/21 04:00 Lymphocytes # (Manual) 2.0 K/mm3 (1.2-5.4) 11/11/21 04:00 Abs React Lymphs (Man) 0.0 K/mm3 11/11/21 04:00 Monocytes # (Manual) 0.9 K/mm3 (0.0-0.8) H 11/11/21 04:00 Eosinophils # (Manual) 0.0 K/mm3 (0.0-0.4) 11/11/21 04:00 Basophils # (Manual) 0.0 K/mm3 (0.0-0.1) 11/11/21 04:00 Metamyelocytes # 0.0 K/mm3 11/11/21 04:00 Myelocytes # 0.0 K/mm3 11/11/21 04:00 Promyelocytes # 0.0 K/mm3 11/11/21 04:00 Blast Cells # 0.0 K/mm3 11/11/21 04:00 WBC Morphology Not Reportable 11/11/21 04:00 Hypersegmented Neuts Not Reportable 11/11/21 04:00 Hyposegmented Neuts Not Reportable 11/11/21 04:00 Hypogranular Neuts Not Reportable 11/11/21 04:00 Smudge Cells Not Reportable 11/11/21 04:00 Toxic Granulation Not Reportable 11/11/21 04:00 Toxic Vacuolation Not Reportable 11/11/21 04:00 Dohle Bodies Not Reportable 11/11/21 04:00 Pel[place]-Huet Anomaly Not Reportable 11/11/21 04:00 [place] Rods Not Reportable 11/11/21 04:00 Platelet Estimate Consistent w auto 11/11/21 04:00 Clumped Platelets Not Reportable 11/11/21 04:00 Plt Clumps, EDTA Not Reportable 11/11/21 04:00 Large Platelets Not Reportable 11/11/21 04:00 Giant Platelets Not Reportable 11/11/21 04:00 Platelet Satelliting Not Reportable 11/11/21 04:00 Plt Morphology Comment Not Reportable 11/11/21 04:00 RBC Morphology Not Reportable 11/11/21 04:00 Dimorphic RBCs Not Reportable 11/11/21 04:00 Polychromasia Not Reportable 11/11/21 04:00 Hypochromasia 1+ 11/11/21 04:00 Poikilocytosis Not Reportable 11/11/21 04:00 Anisocytosis 3+ 11/11/21 04:00 Microcytosis Not Reportable 11/11/21 04:00 Macrocytosis Not Reportable 11/11/21 04:00 Spherocytes Not Reportable 11/11/21 04:00 Pappenheimer Bodies Not Reportable 11/11/21 04:00 Sickle Cells Not Reportable 11/11/21 04:00 Target Cells Not Reportable 11/11/21 04:00 Tear Drop Cells Not Reportable 11/11/21 04:00 Ovalocytes Not Reportable 11/11/21 04:00 Helmet Cells Not Reportable 11/11/21 04:00 [place] Bodies Not Reportable 11/11/21 04:00 [place] Rings Not Reportable 11/11/21 04:00 [place] Cells Not Reportable 11/11/21 04:00 Bite Cells Not Reportable 11/11/21 04:00 Crenated Cell Not Reportable 11/11/21 04:00 Elliptocytes Not Reportable 11/11/21 04:00 Acanthocytes (Spur) 1+ 11/11/21 04:00 Rouleaux Not Reportable 11/11/21 04:00 Hemoglobin C Crystals Not Reportable 11/11/21 04:00 Schistocytes Not Reportable 11/11/21 04:00 Malaria parasites Not Reportable 11/11/21 04:00 [place] Bodies Not Reportable 11/11/21 04:00 Hem Pathologist Commnt No 11/11/21 04:00 PT 15.3 Sec. (12.2-14.9) H 11/09/21 23:33 INR 1.09 (0.87-1.13) 11/09/21 23:33 APTT 26.4 Sec. (24.2-36.6) 11/09/21 23:33 Thrombin Time 18.4 Sec. (15.1-19.6) 11/09/21 23:33 Sodium 132 mmol/L (137-145) L D 11/16/21 04:25 Potassium 4.7 mmol/L (3.6-5.0) 11/16/21 04:25 Chloride 101.6 mmol/L (98-107) 11/16/21 04:25 Carbon Dioxide 24 mmol/L (22-30) 11/16/21 04:25 Anion Gap 11 mmol/L 11/16/21 04:25 BUN 28 mg/dL (7-17) H 11/16/21 04:25 Creatinine 0.8 mg/dL (0.6-1.2) 11/16/21 04:25 Estimated GFR > 60 ml/min 11/16/21 04:25 BUN/Creatinine Ratio 35 % 11/16/21 04:25 Glucose 90 mg/dL (65-100) 11/16/21 04:25 POC Glucose 99 mg/dL (70-105) 11/17/21 05:13 Hemoglobin A1c 5.4 % (4-6) 11/11/21 11:50 Calcium 9.0 mg/dL (8.4-10.2) 11/16/21 04:25 Total Bilirubin 0.20 mg/dL (0.1-1.2) 11/09/21 23:33 AST 29 units/L (5-40) 11/09/21 23:33 ALT 41 units/L (7-56) 11/09/21 23:33 Alkaline Phosphatase 51 units/L (35-129) 11/09/21 23:33 Ammonia 19.0 umol/L (25-60) L 11/14/21 09:39 Total Creatine Kinase 73 units/L (30-135) 11/09/21 23:33 CK-MB (CK-2) 3.0 ng/mL (0.0-4.0) 11/09/21 23:33 CK-MB (CK-2) Rel Index 4.1 (0-4) H 11/09/21 23:33 Troponin T < 0.010 ng/mL (0.00-0.029) 11/09/21 23:33 Total Protein 5.9 g/dL (6.3-8.2) L 11/09/21 23:33 Albumin 3.0 g/dL (3.9-5) L 11/09/21 23:33 Albumin/Globulin Ratio 1.0 % 11/09/21 23:33 Triglycerides 81 mg/dL (2-149) 11/10/21 11:15 Cholesterol 195 mg/dL (50-199) 11/10/21 11:15 LDL Cholesterol Direct 120 mg/dL (50-130) 11/10/21 11:15 HDL Cholesterol 47 mg/dL (40-59) 11/10/21 11:15 Cholesterol/HDL Ratio 4.14 % 11/10/21 11:15 Valproic Acid 46.7 ug/mL (50-100) L 11/14/21 09:39 SARS-CoV-2 (PCR) Negative (Negative) 11/16/21 12:34 [place]/IV: Voiding Method External Female Catheter Active Medications - Current Medications Current Medications: Generic Name Dose Route Start Last Admin Trade Name Freq PRN Reason Stop Dose Admin Acetaminophen 650 mg 11/10/21 03:15 11/13/21 14:03 Acetaminophen 325 Mg Tab PO 650 mg Q4H PRN Administration Pain MILD(1-3)/Fever >100.5/PEREZ Albuterol 2.5 mg 11/10/21 10:37 Albuterol 2.5 Mg/3 Ml Nebu IH Q4HRT PRN Shortness Of Breath Amlodipine Besylate 10 mg 11/12/21 10:30 11/16/21 10:57 Amlodipine 10 Mg Tab PO 10 mg DAILY HUNTER Administration Lipase/Protease/Amylase 1 each 11/12/21 09:00 Lipase 10,500/Protease 25,000/Amylase 43,750 (Units) Dr Jose ARBOLEDATKESHAV PRN PRN For Clogged Feeding Tube Aspirin 325 mg 11/10/21 10:00 11/16/21 10:55 Aspirin 325 Mg Tab PO 325 mg QDAY HUNTER Administration Atorvastatin Calcium 40 mg 11/10/21 22:00 11/16/21 21:25 Atorvastatin 40 Mg Tab PO 40 mg QHS HUNTER Administration Carvedilol 12.5 mg 11/11/21 10:00 11/16/21 21:25 Carvedilol 12.5 Mg Tab PO 12.5 mg BID HUNTER Administration Clonidine HCl 0.3 mg 11/10/21 21:00 11/10/21 21:01 Clonidine Tts 0.3 Mg/24 Hr Patch TD 0.3 mg Sa HUNTER Administration Famotidine 20 mg 11/12/21 22:00 11/16/21 21:25 Famotidine 20 Mg Tab FEEDTUBE 20 mg BID HUNTER Administration Hydralazine HCl 10 mg 11/10/21 20:26 11/12/21 04:29 Hydralazine 20 Mg/1 Ml Inj IV 10 mg Q4HR PRN Administration Blood Pressure Losartan Potassium 100 mg 11/12/21 10:00 11/16/21 10:57 Losartan 50 Mg Tab PO 100 mg QDAY HUNTER Administration Morphine Sulfate 2 mg 11/10/21 03:15 Morphine 2 Mg/1 Ml Inj IV Q4H PRN Pain, Moderate (4-6) Morphine Sulfate 4 mg 11/10/21 03:15 Morphine 4 Mg/1 Ml Inj IV Q4H PRN Pain , Severe (7-10) Ondansetron HCl 4 mg 11/10/21 03:15 Ondansetron 4 Mg/2 Ml Inj IV Q8H PRN Nausea And Vomiting Polyethylene Glycol 17 gm 11/15/21 12:00 11/16/21 10:55 Polyethylene Glycol 3350 17 Gm Powder PO 17 gm QDAY HUNTER Administration Simple Syrup 15 ml 11/12/21 09:00 Simple Syrup 15 Ml FEEDTUBE PRN PRN Hypoglycemia Simple Syrup 30 ml 11/12/21 09:00 Simple Syrup 15 Ml FEEDTUBE PRN PRN Hypoglycemia Sodium Bicarbonate 325 mg 11/12/21 09:00 11/16/21 16:20 Sodium Bicarbonate 325 Mg Tab FEEDTUBE 325 mg PRN PRN Administration For Clogged Feeding Tube Sodium Chloride 10 ml 11/10/21 10:00 11/16/21 21:25 Sodium Chloride 0.9% 10 Ml Flush Syringe IV 10 ml BID HUNTER Administration Sodium Chloride 10 ml 11/10/21 03:15 Sodium Chloride 0.9% 10 Ml Flush Syringe IV PRN PRN LINE FLUSH Valproic Acid 500 mg 11/12/21 14:00 11/16/21 21:25 Valproic Acid 250 Mg/5 Ml Oral Liqd FEEDTUBE 500 mg BID HUNTER Administration Nutrition/Malnutrition Assess - Dietary Evaluation Nutrition/Malnutrition Findings: Nutrition Notes Start: 11/11/21 10:10 Freq: Status: Active Protocol: Document 11/16/21 11:50 NEY (Rec: 11/16/21 11:54 NEY [email or web address]) Nutrition Notes Initial or Follow up Reassessment Current Diagnosis Hypertension,Stroke Other Pertinent Diagnosis Metabolic encephalopathy, Neurogenic dysphagia, Seizure d/o, s/p fall Current Diet NPO Labs/Tests Na 132 Pertinent Medications Miralax Height 5 ft 5 in Weight 56.4 kg [place] Body Weight (kg) 56.81 BMI 20.7 Weight Status Underweight Subjective/Other Information Pt NPO for possible PEG placement today (pending family consent). #1 Nutrition Diagnosis Swallowing difficulty Diagnosis Progress(for reassessment Continues documentation) Is patient on ventilator? No Is Patient Ambulatory and/or Out of Bed No REE-([facility]-confined to bed) 1331.508 Kcal/Kg value to use for calculation 30 Approximate Energy Requirements Using 1692 kcal/Kg Calculation Used for Recommendations Kcal/kg Additional Notes Pro needs 1-1.2g/k-68g/ day Fluid needs 1ml/kcal Nutrition Intervention Nutrition Support: Resume EN support when PEG placed Goal #1 Resume EN support to meet nutrient needs Goal #2 Wt maintenance and/or gain Follow-Up By: 11/19/21 Additional Comments F/U: PEG placement, resume EN support
[2021-11-17] MEDS: FAMOTIDINE 20 MG TAB FEEDTUBE SCH ×2 (09:35→22:15)
[2021-11-17] MEDS: carvediloL 12.5 MG TAB PO SCH ×2 (09:35→22:15)
[2021-11-17] MEDS: ASPIRIN 325 MG TAB PO SCH (09:35)
[2021-11-17] MEDS: LOSARTAN 50 MG TAB PO SCH (09:35)
[2021-11-17] MEDS: POLYETHYLENE GLYCOL 3350 17 GM POWDER PO SCH (09:35)
[2021-11-17] MEDS: amLODIPine 10 MG TAB PO SCH (09:35)
[2021-11-17] MEDS: VALPROIC ACID 250 MG/5 ML ORAL LIQD FEEDTUBE SCH ×2 (09:35→22:15)
--- NOTE | 2021-11-17 19:11 | Gastroenterology Progress Note ---
Assessment and Plan # Neurogenic dysphagia/oropharyngeal dysphagia # CVA -Evaluated by speech therapy and noted to have oropharyngeal dysphagia -We will plan for EGD with PEG placement on Friday. -Continue with Dobbhoff for tube feeding in the meantime and n.p.o. after midnight on Friday. - Patient Problems (1) Neurogenic dysphagia Current Visit: Yes Status: Acute Subjective Date of service: 11/17/21 Interval history: Patient tolerating tube feeds via Dobbhoff. Patient lethargic and unable to answer questions or follow commands. Objective - Constitutional Vitals: Temp Pulse Resp BP Pulse Ox 99.2 F 74 18 140/87 98 11/17/21 16:00 11/17/21 16:00 11/17/21 16:00 11/17/21 16:00 11/17/21 16:00 General appearance: no acute distress - Neck Neck: supple - Respiratory Respiratory effort: normal - Cardiovascular Rhythm: regular Heart Sounds: Present: S1 & S2 - Gastrointestinal General gastrointestinal: Present: soft, non-tender, non-distended - Labs CBC & Chem 7: 11/16/21 04:25 11/16/21 04:25 Labs: Laboratory Results - last 24 hr 11/16/21 11/17/21 11/17/21 23:33 05:13 11:27 POC Glucose 112 H 99 131 H 11/17/21 15:56 POC Glucose 131 H
[2021-11-17] MEDS: cloNIDine TTS 0.3 MG/24 HR PATCH TD SCH (22:18)
--- NOTE | 2021-11-18 10:09 | Progress Note ---
Assessment and Plan Assessment and plan: #Acute ischemic CVA #Acute metabolic encephalopathy Patient evaluated by telemetry neurology in the ED, and she was not found to be a candidate for tPA. Unremarkable CT head noncontrast. 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 MRI brain without contrast revealing "tiny focus of acute infarct in the left frontal opercular region. No hemorrhage or adverse mass-effect." TTE (11/10/2021) revealing EF 55-60% with normal-sized LV, mild concentric LVH, septal hypertrophy, abnormal diastolic function, normal-sized RV, normal RV systolic function, normal LA size, normal RA, no evidence of ASD or PFO. Hemoglobin A1c 5.4. continue ASA + statin -Cardiology consulted for RICARDO, will not be completed at this time due to vinnie laurent mental status Physical therapy, Occupational Therapy: recommending subacute rehab; pending [facility] #Neurogenic dysphagia Speech therapy consulted; recommending patient remain n.p.o. due to high aspiration risk. Continue tube feeds; plan for PEG tube placement Tomorrow - GI consulted, assistance appreciated #Hypertension - home medications: Amlodipine 10 mg daily, Coreg 12.5 mg twice daily, losartan 100 mg daily, and clonidine patch 0.5 mg - current medications: Amlodipine 10 mg daily, Coreg 12.5 mg twice daily, losartan 100 mg daily, and clonidine patch 0.5 mg + PRN hydralazine - SBP goal <160 and DBP goal <90 while inpatient - continue to monitor #Seizure disorder continue valproic acid 500 mg twice daily -EEG ordered by Neurology #Ground-level fall #Occipital scalp laceration Unremarkable imaging. Laceration repaired in the ED with jarrett. Continue analgesics as needed. #Mild protein caloric malnutrition Albumin 3.0 Currently holding dietary supplementation as the patient is n.p.o. and pending speech evaluation in the setting of acute ischemic CVA #Advanced care planning -Disease education, care plan, diagnosis, prognosis discussed with next of kin Mindy. Family understands and acknowledges current plan. -Time: +30 minutes #Disposition -pending PEG tube placement, plan to discharge patient to [facility] afterwards History Interval history: Patient minimally responsive to tactile stimuli. Patient daughter Mindy at bedside. We discussed current care plan. TF running at 55cc/hr. Plan for PEG tube tomorrow. Hospitalist Physical - Physical exam Narrative exam: GENERAL: Well-developed well-nourished. In no acute distress. HEENT: NGT in place NECK: Supple. CHEST/LUNGS: CTAB on room air HEART/CARDIOVASCULAR: RRR. No murmur, rubs or gallops appreciated. ABDOMEN: +BS. NT/ND. NEURO: Unable to assess. EXTREMITIES: No cyanosis, clubbing or edema. PSYCH: Unable to assess. Patient nonverbal and nonresponsive to commands after stroke. - Constitutional Vitals: Temp Pulse Resp BP Pulse Ox 98.4 F 75 18 162/88 97 11/18/21 08:01 11/18/21 08:01 11/18/21 08:01 11/18/21 08:01 11/18/21 08:01 General appearance: Present: no acute distress, well-nourished, other (Nonverbal) HEART Score - HEART Score Troponin: Troponin T < 0.010 ng/mL (0.00-0.029) 11/09/21 23:33 Results - Labs CBC & Chem 7: 11/16/21 04:25 11/16/21 04:25 Labs: Laboratory Last Values WBC 9.7 K/mm3 (4.5-11.0) 11/16/21 04:25 RBC 3.21 M/mm3 (3.65-5.03) L 11/16/21 04:25 Hgb 10.1 gm/dl (10.1-14.3) 11/16/21 04:25 Hct 30.0 % (30.3-42.9) L 11/16/21 04:25 MCV 93 fl (79-97) 11/16/21 04:25 MCH 32 pg (28-32) 11/16/21 04:25 MCHC 34 % (30-34) 11/16/21 04:25 RDW 22.5 % (13.2-15.2) H 11/16/21 04:25 Plt Count 163 K/mm3 (140-440) 11/16/21 04:25 Lymph % (Auto) 29.3 % (13.4-35.0) 11/09/21 23:33 [place] % (Auto) 8.0 % (0.0-7.3) H 11/09/21 23:33 Eos % (Auto) 1.9 % (0.0-4.3) 11/09/21 23:33 Baso % (Auto) 0.2 % (0.0-1.8) 11/09/21 23: Lymph # (Auto) 2.7 K/mm3 (1.2-5.4) 11/09/21 23:33 [place] # (Auto) 0.7 K/mm3 (0.0-0.8) 11/09/21 23: Eos # (Auto) 0.2 K/mm3 (0.0-0.4) 11/09/21 23: Baso # (Auto) 0.0 K/mm3 (0.0-0.1) 11/09/21 23:33 Add Manual Diff Complete 11/11/21 04:00 Total Counted 100 11/11/21 04:00 Seg Neutrophils % 60.6 % (40.0-70.0) 11/09/21 23:33 Seg Neuts % (Manual) 70.0 % (40.0-70.0) 11/11/21 04:00 Band Neutrophils % 1.0 % 11/11/21 04:00 Lymphocytes % (Manual) 20.0 % (13.4-35.0) 11/11/21 04:00 Reactive Lymphs % (Man) 0 % 11/11/21 04:00 Monocytes % (Manual) 9.0 % (0.0-7.3) H 11/11/21 04:00 Eosinophils % (Manual) 0 % (0.0-4.3) 11/11/21 04:00 Basophils % (Manual) 0 % (0.0-1.8) 11/11/21 04:00 Metamyelocytes % 0 % 11/11/21 04:00 Myelocytes % 0 % 11/11/21 04:00 Promyelocytes % 0 % 11/11/21 04:00 Blast Cells % 0 % 11/11/21 04:00 Nucleated RBC % Not Reportable 11/11/21 04:00 Seg Neutrophils # 5.7 K/mm3 (1.8-7.7) 11/09/21 23:33 Seg Neutrophils # Man 7.0 K/mm3 (1.8-7.7) 11/11/21 04:00 Band Neutrophils # 0.1 K/mm3 11/11/21 04:00 Lymphocytes # (Manual) 2.0 K/mm3 (1.2-5.4) 11/11/21 04:00 Abs React Lymphs (Man) 0.0 K/mm3 11/11/21 04:00 Monocytes # (Manual) 0.9 K/mm3 (0.0-0.8) H 11/11/21 04:00 Eosinophils # (Manual) 0.0 K/mm3 (0.0-0.4) 11/11/21 04:00 Basophils # (Manual) 0.0 K/mm3 (0.0-0.1) 11/11/21 04:00 Metamyelocytes # 0.0 K/mm3 11/11/21 04:00 Myelocytes # 0.0 K/mm3 11/11/21 04:00 Promyelocytes # 0.0 K/mm3 11/11/21 04:00 Blast Cells # 0.0 K/mm3 11/11/21 04:00 WBC Morphology Not Reportable 11/11/21 04:00 Hypersegmented Neuts Not Reportable 11/11/21 04:00 Hyposegmented Neuts Not Reportable 11/11/21 04:00 Hypogranular Neuts Not Reportable 11/11/21 04:00 Smudge Cells Not Reportable 11/11/21 04:00 Toxic Granulation Not Reportable 11/11/21 04:00 Toxic Vacuolation Not Reportable 11/11/21 04:00 Dohle Bodies Not Reportable 11/11/21 04:00 Pelger-Huet Anomaly Not Reportable 11/11/21 04:00 Keyonna Rods Not Reportable 11/11/21 04:00 Platelet Estimate Consistent w auto 11/11/21 04:00 Clumped Platelets Not Reportable 11/11/21 04:00 Plt Clumps, EDTA Not Reportable 11/11/21 04:00 Large Platelets Not Reportable 11/11/21 04:00 Giant Platelets Not Reportable 11/11/21 04:00 Platelet Satelliting Not Reportable 11/11/21 04:00 Plt Morphology Comment Not Reportable 11/11/21 04:00 RBC Morphology Not Reportable 11/11/21 04:00 Dimorphic RBCs Not Reportable 11/11/21 04:00 Polychromasia Not Reportable 11/11/21 04:00 Hypochromasia 1+ 11/11/21 04:00 Poikilocytosis Not Reportable 11/11/21 04:00 Anisocytosis 3+ 11/11/21 04:00 Microcytosis Not Reportable 11/11/21 04:00 Macrocytosis Not Reportable 11/11/21 04:00 Spherocytes Not Reportable 11/11/21 04:00 Pappenheimer Bodies Not Reportable 11/11/21 04:00 Sickle Cells Not Reportable 11/11/21 04:00 Target Cells Not Reportable 11/11/21 04:00 Tear Drop Cells Not Reportable 11/11/21 04:00 Ovalocytes Not Reportable 11/11/21 04:00 Helmet Cells Not Reportable 11/11/21 04:00 [place] Bodies Not Reportable 11/11/21 04:00 [place] Rings Not Reportable 11/11/21 04:00 [place] Cells Not Reportable 11/11/21 04:00 Bite Cells Not Reportable 11/11/21 04:00 Crenated Cell Not Reportable 11/11/21 04:00 Elliptocytes Not Reportable 11/11/21 04:00 Acanthocytes (Spur) 1+ 11/11/21 04:00 Rouleaux Not Reportable 11/11/21 04:00 Hemoglobin C Crystals Not Reportable 11/11/21 04:00 Schistocytes Not Reportable 11/11/21 04:00 Malaria parasites Not Reportable 11/11/21 04:00 [place] Bodies Not Reportable 11/11/21 04:00 Hem Pathologist Commnt No 11/11/21 04:00 PT 15.3 Sec. (12.2-14.9) H 11/09/21 23:33 INR 1.09 (0.87-1.13) 11/09/21 23:33 APTT 26.4 Sec. (24.2-36.6) 11/09/21 23:33 Thrombin Time 18.4 Sec. (15.1-19.6) 11/09/21 23:33 Sodium 132 mmol/L (137-145) L D 11/16/21 04:25 Potassium 4.7 mmol/L (3.6-5.0) 11/16/21 04:25 Chloride 101.6 mmol/L (98-107) 11/16/21 04:25 Carbon Dioxide 24 mmol/L (22-30) 11/16/21 04:25 Anion Gap 11 mmol/L 11/16/21 04:25 BUN 28 mg/dL (7-17) H 11/16/21 04:25 Creatinine 0.8 mg/dL (0.6-1.2) 11/16/21 04:25 Estimated GFR > 60 ml/min 11/16/21 04:25 BUN/Creatinine Ratio 35 % 11/16/21 04:25 Glucose 90 mg/dL (65-100) 11/16/21 04:25 POC Glucose 124 mg/dL (70-105) H 11/17/21 23:31 Hemoglobin A1c 5.4 % (4-6) 11/11/21 11:50 Calcium 9.0 mg/dL (8.4-10.2) 11/16/21 04:25 Total Bilirubin 0.20 mg/dL (0.1-1.2) 11/09/21 23:33 AST 29 units/L (5-40) 11/09/21 23:33 ALT 41 units/L (7-56) 11/09/21 23:33 Alkaline Phosphatase 51 units/L (35-129) 11/09/21 23:33 Ammonia 19.0 umol/L (25-60) L 11/14/21 09:39 Total Creatine Kinase 73 units/L (30-135) 11/09/21 23:33 CK-MB (CK-2) 3.0 ng/mL (0.0-4.0) 11/09/21 23:33 CK-MB (CK-2) Rel Index 4.1 (0-4) H 11/09/21 23:33 Troponin T < 0.010 ng/mL (0.00-0.029) 11/09/21 23:33 Total Protein 5.9 g/dL (6.3-8.2) L 11/09/21 23:33 Albumin 3.0 g/dL (3.9-5) L 11/09/21 23:33 Albumin/Globulin Ratio 1.0 % 11/09/21 23:33 Triglycerides 81 mg/dL (2-149) 11/10/21 11:15 Cholesterol 195 mg/dL (50-199) 11/10/21 11:15 LDL Cholesterol Direct 120 mg/dL (50-130) 11/10/21 11:15 HDL Cholesterol 47 mg/dL (40-59) 11/10/21 11:15 Cholesterol/HDL Ratio 4.14 % 11/10/21 11:15 Valproic Acid 46.7 ug/mL (50-100) L 11/14/21 09:39 SARS-CoV-2 (PCR) Negative (Negative) 11/16/21 12:34 [place]/IV: Voiding Method External Female Catheter Active Medications - Current Medications Current Medications: Generic Name Dose Route Start Last Admin Trade Name Freq PRN Reason Stop Dose Admin Acetaminophen 650 mg 11/10/21 03:15 11/13/21 14:03 Acetaminophen 325 Mg Tab PO 650 mg Q4H PRN Administration Pain MILD(1-3)/Fever >100.5/PEREZ Albuterol 2.5 mg 11/10/21 10:37 Albuterol 2.5 Mg/3 Ml Nebu IH Q4HRT PRN Shortness Of Breath Amlodipine Besylate 10 mg 11/12/21 10:30 11/17/21 09:35 Amlodipine 10 Mg Tab PO 10 mg DAILY HUNTER Administration Lipase/Protease/Amylase 1 each 11/12/21 09:00 Lipase 10,500/Protease 25,000/Amylase 43,750 (Units) Dr Garcia FEEDTUBE PRN PRN For Clogged Feeding Tube Aspirin 325 mg 11/10/21 10:00 11/17/21 09:35 Aspirin 325 Mg Tab PO 325 mg QDAY HUNTER Administration Atorvastatin Calcium 40 mg 11/10/21 22:00 11/17/21 22:16 Atorvastatin 40 Mg Tab PO 40 mg QHS HUNTER Administration Carvedilol 12.5 mg 11/11/21 10:00 11/17/21 22:15 Carvedilol 12.5 Mg Tab PO 12.5 mg BID HUNTER Administration Clonidine HCl 0.3 mg 11/10/21 21:00 11/17/21 22:18 Clonidine Tts 0.3 Mg/24 Hr Patch TD 0.3 mg Sa HUNTER Administration Famotidine 20 mg 11/12/21 22:00 11/17/21 22:15 Famotidine 20 Mg Tab FEEDTUBE 20 mg BID HUNTER Administration Hydralazine HCl 10 mg 11/10/21 20:26 11/12/21 04:29 Hydralazine 20 Mg/1 Ml Inj IV 10 mg Q4HR PRN Administration Blood Pressure Losartan Potassium 100 mg 11/12/21 10:00 11/17/21 09:35 Losartan 50 Mg Tab PO 100 mg QDAY HUNTER Administration Morphine Sulfate 2 mg 11/10/21 03:15 Morphine 2 Mg/1 Ml Inj IV Q4H PRN Pain, Moderate (4-6) Morphine Sulfate 4 mg 11/10/21 03:15 Morphine 4 Mg/1 Ml Inj IV Q4H PRN Pain , Severe (7-10) Ondansetron HCl 4 mg 11/10/21 03:15 Ondansetron 4 Mg/2 Ml Inj IV Q8H PRN Nausea And Vomiting Polyethylene Glycol 17 gm 11/15/21 12:00 11/17/21 09:35 Polyethylene Glycol 3350 17 Gm Powder PO 17 gm QDAY HUNTER Administration Simple Syrup 15 ml 11/12/21 09:00 Simple Syrup 15 Ml FEEDTUBE PRN PRN Hypoglycemia Simple Syrup 30 ml 11/12/21 09:00 Simple Syrup 15 Ml FEEDTUBE PRN PRN Hypoglycemia Sodium Bicarbonate 325 mg 11/12/21 09:00 11/16/21 16:20 Sodium Bicarbonate 325 Mg Tab FEEDTUBE 325 mg PRN PRN Administration For Clogged Feeding Tube Sodium Chloride 10 ml 11/10/21 10:00 11/17/21 22:16 Sodium Chloride 0.9% 10 Ml Flush Syringe IV 10 ml BID HUNTER Administration Sodium Chloride 10 ml 11/10/21 03:15 Sodium Chloride 0.9% 10 Ml Flush Syringe IV PRN PRN LINE FLUSH Valproic Acid 500 mg 11/12/21 14:00 11/17/21 22:15 Valproic Acid 250 Mg/5 Ml Oral Liqd FEEDTUBE 500 mg BID HUNTER Administration Nutrition/Malnutrition Assess - Dietary Evaluation Nutrition/Malnutrition Findings: Nutrition Notes Start: 11/11/21 10:10 Freq: Status: Active Protocol: Document 11/16/21 11:50 NEY (Rec: 11/16/21 11:54 NEY [id number]) Nutrition Notes Initial or Follow up Reassessment Current Diagnosis Hypertension,Stroke Other Pertinent Diagnosis Metabolic encephalopathy, Neurogenic dysphagia, Seizure d/o, s/p fall Current Diet NPO Labs/Tests Na 132 Pertinent Medications Miralax Height 5 ft 5 in Weight 56.4 kg [place] Body Weight (kg) 56.81 BMI 20.7 Weight Status Underweight Subjective/Other Information Pt NPO for possible PEG placement today (pending family consent). #1 Nutrition Diagnosis Swallowing difficulty Diagnosis Progress(for reassessment Continues documentation) Is patient on ventilator? No Is Patient Ambulatory and/or Out of Bed No REE-([facility]-confined to bed) 1331.508 Kcal/Kg value to use for calculation 30 Approximate Energy Requirements Using 1692 kcal/Kg Calculation Used for Recommendations Kcal/kg Additional Notes Pro needs 1-1.2g/k-68g/ day Fluid needs 1ml/kcal Nutrition Intervention Nutrition Support: Resume EN support when PEG placed Goal #1 Resume EN support to meet nutrient needs Goal #2 Wt maintenance and/or gain Follow-Up By: 11/19/21 Additional Comments F/U: PEG placement, resume EN support
[2021-11-18] MEDS: LOSARTAN 50 MG TAB PO SCH (10:31)
[2021-11-18] MEDS: POLYETHYLENE GLYCOL 3350 17 GM POWDER PO SCH (10:31)
[2021-11-18] MEDS: amLODIPine 10 MG TAB PO SCH (10:31)
[2021-11-18] MEDS: VALPROIC ACID 250 MG/5 ML ORAL LIQD FEEDTUBE SCH ×2 (10:31→21:35)
[2021-11-18] MEDS: FAMOTIDINE 20 MG TAB FEEDTUBE SCH ×2 (10:31→21:36)
[2021-11-18] MEDS: carvediloL 12.5 MG TAB PO SCH ×2 (10:31→21:41)
[2021-11-18] MEDS: ASPIRIN 325 MG TAB PO SCH (10:32)
[2021-11-19 05:37] LABS: Hematocrit 30.3 % (30.3-42.9); Hemoglobin 10.2 gm/dl (10.1-14.3); Mean Corpuscular HGB Conc 34 % (30-34); Mean Corpuscular Volume 92 fl (79-97); Platelet Count 268 K/mm3 (140-440); Red Blood Count 3.29 M/mm3 (3.65-5.03)
[2021-11-19 05:41] LABS: Red Cell Distribution Width 21.3 % (13.2-15.2)
[2021-11-19 05:54] LABS: BUN/Creatinine Ratio 33; Blood Urea Nitrogen 26 mg/dL (7-17); Calcium 9.1 mg/dL (8.4-10.2); Hemolysis Index 0
--- NOTE | 2021-11-19 11:15 | Progress Note ---
Assessment and Plan Assessment and plan: #Acute ischemic CVA #Acute metabolic encephalopathy Patient evaluated by telemetry neurology in the ED, and she was not found to be a candidate for tPA. Unremarkable CT head noncontrast. 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 MRI brain without contrast revealing "tiny focus of acute infarct in the left frontal opercular region. No hemorrhage or adverse mass-effect." TTE (11/10/2021) revealing EF 55-60% with normal-sized LV, mild concentric LVH, septal hypertrophy, abnormal diastolic function, normal-sized RV, normal RV systolic function, normal LA size, normal RA, no evidence of ASD or PFO. Hemoglobin A1c 5.4. continue ASA + statin -Cardiology consulted for RICARDO, will not be completed at this time due to vinnie laurent mental status Physical therapy, Occupational Therapy: recommending subacute rehab; pending [facility] #Neurogenic dysphagia Speech therapy consulted; recommending patient remain n.p.o. due to high aspiration risk. Continue tube feeds; plan for PEG tube placement today - GI consulted, assistance appreciated #Hypertension - home medications: Amlodipine 10 mg daily, Coreg 12.5 mg twice daily, losartan 100 mg daily, and clonidine patch 0.5 mg - current medications: Amlodipine 10 mg daily, Coreg 12.5 mg twice daily, losartan 100 mg daily, and clonidine patch 0.5 mg + PRN hydralazine - SBP goal <160 and DBP goal <90 while inpatient - continue to monitor #Seizure disorder continue valproic acid 500 mg twice daily -EEG ordered by Neurology #Ground-level fall #Occipital scalp laceration Unremarkable imaging. Laceration repaired in the ED with jarrett. Continue analgesics as needed. #Mild protein caloric malnutrition Albumin 3.0 Currently holding dietary supplementation as the patient is n.p.o. and pending speech evaluation in the setting of acute ischemic CVA #Advanced care planning -Disease education, care plan, diagnosis, prognosis discussed with next of kin Mindy. Family understands and acknowledges current plan. -Time: +30 minutes #Disposition -pending PEG tube placement, plan to discharge patient [facility] afterwards History Interval history: Patient minimally responsive to tactile stimuli. She was observed spontaneously moving her R upper extremity on examination today. Plan for PEG tube today. Hospitalist Physical - Physical exam Narrative exam: GENERAL: Well-developed well-nourished. In no acute distress. HEENT: NGT in place NECK: Supple. CHEST/LUNGS: CTAB on room air HEART/CARDIOVASCULAR: RRR. No murmur, rubs or gallops appreciated. ABDOMEN: +BS. NT/ND. NEURO: Unable to assess. EXTREMITIES: No cyanosis, clubbing or edema. PSYCH: Unable to assess. Patient nonverbal and nonresponsive to commands after stroke. - Constitutional Vitals: Temp Pulse Resp BP Pulse Ox 98.2 F 74 16 117/81 99 11/19/21 01:04 11/19/21 01:04 11/19/21 01:04 11/19/21 01:04 11/19/21 01:04 General appearance: Present: no acute distress, well-nourished, other (Nonverbal) HEART Score - HEART Score Troponin: Troponin T < 0.010 ng/mL (0.00-0.029) 11/09/21 23:33 Results - Labs CBC & Chem 7: 11/19/21 05:16 11/19/21 05:16 Labs: Laboratory Last Values WBC 6.7 K/mm3 (4.5-11.0) 11/19/21 05:16 RBC 3.29 M/mm3 (3.65-5.03) L 11/19/21 05:16 Hgb 10.2 gm/dl (10.1-14.3) 11/19/21 05:16 Hct 30.3 % (30.3-42.9) 11/19/21 05:16 MCV 92 fl (79-97) 11/19/21 05:16 MCH 31 pg (28-32) 11/19/21 05:16 MCHC 34 % (30-34) 11/19/21 05:16 RDW 21.3 % (13.2-15.2) H 11/19/21 05:16 Plt Count 268 K/mm3 (140-440) 11/19/21 05:16 Lymph % (Auto) 29.3 % (13.4-35.0) 11/09/21 23:33 [place] % (Auto) 8.0 % (0.0-7.3) H 11/09/21 23:33 Eos % (Auto) 1.9 % (0.0-4.3) 11/09/21 23: Baso % (Auto) 0.2 % (0.0-1.8) 11/09/21 23: Lymph # (Auto) 2.7 K/mm3 (1.2-5.4) 11/09/21 23: [place] # (Auto) 0.7 K/mm3 (0.0-0.8) 11/09/21 23: Eos # (Auto) 0.2 K/mm3 (0.0-0.4) 11/09/21: Baso # (Auto) 0.0 K/mm3 (0.0-0.1) 11/09/21 23: Add Manual Diff Complete 11/11/21 04:00 Total Counted 100 11/11/21 04:00 Seg Neutrophils % 60.6 % (40.0-70.0) 11/09/21 23:33 Seg Neuts % (Manual) 70.0 % (40.0-70.0) 11/11/21 04:00 Band Neutrophils % 1.0 % 11/11/21 04:00 Lymphocytes % (Manual) 20.0 % (13.4-35.0) 11/11/21 04:00 Reactive Lymphs % (Man) 0 % 11/11/21 04:00 Monocytes % (Manual) 9.0 % (0.0-7.3) H 11/11/21 04:00 Eosinophils % (Manual) 0 % (0.0-4.3) 11/11/21 04:00 Basophils % (Manual) 0 % (0.0-1.8) 11/11/21 04:00 Metamyelocytes % 0 % 11/11/21 04:00 Myelocytes % 0 % 11/11/21 04:00 Promyelocytes % 0 % 11/11/21 04:00 Blast Cells % 0 % 11/11/21 04:00 Nucleated RBC % Not Reportable 11/11/21 04:00 Seg Neutrophils # 5.7 K/mm3 (1.8-7.7) 11/09/21 23: Seg Neutrophils # Man 7.0 K/mm3 (1.8-7.7) 11/11/21 04:00 Band Neutrophils # 0.1 K/mm3 11/11/21 04:00 Lymphocytes # (Manual) 2.0 K/mm3 (1.2-5.4) 11/11/21 04:00 Abs React Lymphs (Man) 0.0 K/mm3 11/11/21 04:00 Monocytes # (Manual) 0.9 K/mm3 (0.0-0.8) H 11/11/21 04:00 Eosinophils # (Manual) 0.0 K/mm3 (0.0-0.4) 11/11/21 04:00 Basophils # (Manual) 0.0 K/mm3 (0.0-0.1) 11/11/21 04:00 Metamyelocytes # 0.0 K/mm3 11/11/21 04:00 Myelocytes # 0.0 K/mm3 11/11/21 04:00 Promyelocytes # 0.0 K/mm3 11/11/21 04:00 Blast Cells # 0.0 K/mm3 11/11/21 04:00 WBC Morphology Not Reportable 11/11/21 04:00 Hypersegmented Neuts Not Reportable 11/11/21 04:00 Hyposegmented Neuts Not Reportable 11/11/21 04:00 Hypogranular Neuts Not Reportable 11/11/21 04:00 Smudge Cells Not Reportable 11/11/21 04:00 Toxic Granulation Not Reportable 11/11/21 04:00 Toxic Vacuolation Not Reportable 11/11/21 04:00 Dohle Bodies Not Reportable 11/11/21 04:00 Pelger-Huet Anomaly Not Reportable 11/11/21 04:00 Keyonna Rods Not Reportable 11/11/21 04:00 Platelet Estimate Consistent w auto 11/11/21 04:00 Clumped Platelets Not Reportable 11/11/21 04:00 Plt Clumps, EDTA Not Reportable 11/11/21 04:00 Large Platelets Not Reportable 11/11/21 04:00 Giant Platelets Not Reportable 11/11/21 04:00 Platelet Satelliting Not Reportable 11/11/21 04:00 Plt Morphology Comment Not Reportable 11/11/21 04:00 RBC Morphology Not Reportable 11/11/21 04:00 Dimorphic RBCs Not Reportable 11/11/21 04:00 Polychromasia Not Reportable 11/11/21 04:00 Hypochromasia 1+ 11/11/21 04:00 Poikilocytosis Not Reportable 11/11/21 04:00 Anisocytosis 3+ 11/11/21 04:00 Microcytosis Not Reportable 11/11/21 04:00 Macrocytosis Not Reportable 11/11/21 04:00 Spherocytes Not Reportable 11/11/21 04:00 Pappenheimer Bodies Not Reportable 11/11/21 04:00 Sickle Cells Not Reportable 11/11/21 04:00 Target Cells Not Reportable 11/11/21 04:00 Tear Drop Cells Not Reportable 11/11/21 04:00 Ovalocytes Not Reportable 11/11/21 04:00 Helmet Cells Not Reportable 11/11/21 04:00 [place] Bodies Not Reportable 11/11/21 04:00 [place] Rings Not Reportable 11/11/21 04:00 [place] Cells Not Reportable 11/11/21 04:00 Bite Cells Not Reportable 11/11/21 04:00 Crenated Cell Not Reportable 11/11/21 04:00 Elliptocytes Not Reportable 11/11/21 04:00 Acanthocytes (Spur) 1+ 11/11/21 04:00 Rouleaux Not Reportable 11/11/21 04:00 Hemoglobin C Crystals Not Reportable 11/11/21 04:00 Schistocytes Not Reportable 11/11/21 04:00 Malaria parasites Not Reportable 11/11/21 04:00 Quinn Bodies Not Reportable 11/11/21 04:00 Hem Pathologist Commnt No 11/11/21 04:00 PT 15.3 Sec. (12.2-14.9) H 11/09/21 23:33 INR 1.09 (0.87-1.13) 11/09/21 23:33 APTT 26.4 Sec. (24.2-36.6) 11/09/21 23:33 Thrombin Time 18.4 Sec. (15.1-19.6) 11/09/21 23:33 Sodium 133 mmol/L (137-145) L 11/19/21 05:16 Potassium 4.5 mmol/L (3.6-5.0) 11/19/21 05:16 Chloride 99.0 mmol/L (98-107) 11/19/21 05:16 Carbon Dioxide 24 mmol/L (22-30) 11/19/21 05:16 Anion Gap 15 mmol/L 11/19/21 05:16 BUN 26 mg/dL (7-17) H 11/19/21 05:16 Creatinine 0.8 mg/dL (0.6-1.2) 11/19/21 05:16 Estimated GFR > 60 ml/min 11/19/21 05:16 BUN/Creatinine Ratio 33 % 11/19/21 05:16 Glucose 94 mg/dL (65-100) 11/19/21 05:16 POC Glucose 96 mg/dL (70-105) 11/19/21 08:00 Hemoglobin A1c 5.4 % (4-6) 11/11/21 11:50 Calcium 9.1 mg/dL (8.4-10.2) 11/19/21 05:16 Total Bilirubin 0.20 mg/dL (0.1-1.2) 11/09/21 23:33 AST 29 units/L (5-40) 11/09/21 23:33 ALT 41 units/L (7-56) 11/09/21 23:33 Alkaline Phosphatase 51 units/L (35-129) 11/09/21 23:33 Ammonia 19.0 umol/L (25-60) L 11/14/21 09:39 Total Creatine Kinase 73 units/L (30-135) 11/09/21 23:33 CK-MB (CK-2) 3.0 ng/mL (0.0-4.0) 11/09/21 23:33 CK-MB (CK-2) Rel Index 4.1 (0-4) H 11/09/21 23:33 Troponin T < 0.010 ng/mL (0.00-0.029) 11/09/21 23:33 Total Protein 5.9 g/dL (6.3-8.2) L 11/09/21 23:33 Albumin 3.0 g/dL (3.9-5) L 11/09/21 23:33 Albumin/Globulin Ratio 1.0 % 11/09/21 23:33 Triglycerides 81 mg/dL (2-149) 11/10/21 11:15 Cholesterol 195 mg/dL (50-199) 11/10/21 11:15 LDL Cholesterol Direct 120 mg/dL (50-130) 11/10/21 11:15 HDL Cholesterol 47 mg/dL (40-59) 11/10/21 11:15 Cholesterol/HDL Ratio 4.14 % 11/10/21 11:15 Valproic Acid 46.7 ug/mL (50-100) L 11/14/21 09:39 SARS-CoV-2 (PCR) Negative (Negative) 11/16/21 12:34 [place]/IV: Voiding Method External Female Catheter Active Medications - Current Medications Current Medications: Generic Name Dose Route Start Last Admin Trade Name Freq PRN Reason Stop Dose Admin Acetaminophen 650 mg 11/10/21 03:15 11/13/21 14:03 Acetaminophen 325 Mg Tab PO 650 mg Q4H PRN Administration Pain MILD(1-3)/Fever >100.5/PEREZ Albuterol 2.5 mg 11/10/21 10:37 Albuterol 2.5 Mg/3 Ml Nebu IH Q4HRT PRN Shortness Of Breath Amlodipine Besylate 10 mg 11/12/21 10:30 11/18/21 10:31 Amlodipine 10 Mg Tab PO 10 mg DAILY HUNTER Administration Lipase/Protease/Amylase 1 each 11/12/21 09:00 Lipase 10,500/Protease 25,000/Amylase 43,750 (Units) Dr Garcia FEEDTUBE PRN PRN For Clogged Feeding Tube Aspirin 325 mg 11/10/21 10:00 11/18/21 10:32 Aspirin 325 Mg Tab PO 325 mg QDAY HUNTER Administration Atorvastatin Calcium 40 mg 11/10/21 22:00 11/18/21 21:35 Atorvastatin 40 Mg Tab PO 40 mg QHS HUNTER Administration Carvedilol 12.5 mg 11/11/21 10:00 11/18/21 21:41 Carvedilol 12.5 Mg Tab PO 12.5 mg BID HUNTER Administration Clonidine HCl 0.3 mg 11/10/21 21:00 11/17/21 22:18 Clonidine Tts 0.3 Mg/24 Hr Patch TD 0.3 mg Sa HUNTER Administration Famotidine 20 mg 11/12/21 22:00 11/18/21 21:36 Famotidine 20 Mg Tab FEEDTUBE 20 mg BID HUNTER Administration Hydralazine HCl 10 mg 11/10/21 20:26 11/12/21 04:29 Hydralazine 20 Mg/1 Ml Inj IV 10 mg Q4HR PRN Administration Blood Pressure Losartan Potassium 100 mg 11/12/21 10:00 11/18/21 10:31 Losartan 50 Mg Tab PO 100 mg QDAY HUNTER Administration Morphine Sulfate 2 mg 11/10/21 03:15 Morphine 2 Mg/1 Ml Inj IV Q4H PRN Pain, Moderate (4-6) Morphine Sulfate 4 mg 11/10/21 03:15 Morphine 4 Mg/1 Ml Inj IV Q4H PRN Pain , Severe (7-10) Ondansetron HCl 4 mg 11/10/21 03:15 Ondansetron 4 Mg/2 Ml Inj IV Q8H PRN Nausea And Vomiting Polyethylene Glycol 17 gm 11/15/21 12:00 11/18/21 10:31 Polyethylene Glycol 3350 17 Gm Powder PO 17 gm QDAY HUNTER Administration Simple Syrup 15 ml 11/12/21 09:00 Simple Syrup 15 Ml FEEDTUBE PRN PRN Hypoglycemia Simple Syrup 30 ml 11/12/21 09:00 Simple Syrup 15 Ml FEEDTUBE PRN PRN Hypoglycemia Sodium Bicarbonate 325 mg 11/12/21 09:00 11/16/21 16:20 Sodium Bicarbonate 325 Mg Tab FEEDTUBE 325 mg PRN PRN Administration For Clogged Feeding Tube Sodium Chloride 10 ml 11/10/21 10:00 11/18/21 21:36 Sodium Chloride 0.9% 10 Ml Flush Syringe IV 10 ml BID HUNTER Administration Sodium Chloride 10 ml 11/10/21 03:15 Sodium Chloride 0.9% 10 Ml Flush Syringe IV PRN PRN LINE FLUSH Valproic Acid 500 mg 11/12/21 14:00 11/18/21 21:35 Valproic Acid 250 Mg/5 Ml Oral Liqd FEEDTUBE 500 mg BID HUNTER Administration Nutrition/Malnutrition Assess - Dietary Evaluation Nutrition/Malnutrition Findings: Nutrition Notes Start: 11/11/21 10:10 Freq: Status: Active Protocol: Document 11/16/21 11:50 NEY (Rec: 11/16/21 11:54 NEY [id number]) Nutrition Notes Initial or Follow up Reassessment Current Diagnosis Hypertension,Stroke Other Pertinent Diagnosis Metabolic encephalopathy, Neurogenic dysphagia, Seizure d/o, s/p fall Current Diet NPO Labs/Tests Na 132 Pertinent Medications Miralax Height 5 ft 5 in Weight 56.4 kg [place] Body Weight (kg) 56.81 BMI 20.7 Weight Status Underweight Subjective/Other Information Pt NPO for possible PEG placement today (pending family consent). #1 Nutrition Diagnosis Swallowing difficulty Diagnosis Progress(for reassessment Continues documentation) Is patient on ventilator? No Is Patient Ambulatory and/or Out of Bed No REE-([facility]-confined to bed) 1331.508 Kcal/Kg value to use for calculation 30 Approximate Energy Requirements Using 1692 kcal/Kg Calculation Used for Recommendations Kcal/kg Additional Notes Pro needs 1-1.2g/k-68g/ day Fluid needs 1ml/kcal Nutrition Intervention Nutrition Support: Resume EN support when PEG placed Goal #1 Resume EN support to meet nutrient needs Goal #2 Wt maintenance and/or gain Follow-Up By: 11/19/21 Additional Comments F/U: PEG placement, resume EN support
[2021-11-19] MEDS: LOSARTAN 50 MG TAB PO SCH (11:29)
[2021-11-19] MEDS: amLODIPine 10 MG TAB PO SCH (11:29)
[2021-11-19] MEDS: carvediloL 12.5 MG TAB PO SCH ×2 (11:29→21:30)
[2021-11-19] MEDS: POLYETHYLENE GLYCOL 3350 17 GM POWDER PO SCH (11:29)
[2021-11-19] MEDS: ASPIRIN 325 MG TAB PO SCH (11:29)
[2021-11-19] MEDS: VALPROIC ACID 250 MG/5 ML ORAL LIQD FEEDTUBE SCH ×2 (11:30→21:31)
[2021-11-19] MEDS: FAMOTIDINE 20 MG TAB FEEDTUBE SCH ×2 (11:30→21:31)
[2021-11-19] MEDS: hydrALAZINE 20 MG/1 ML INJ IV PRN ×2 (11:31→20:19)
[2021-11-19] MEDS ORDERED: WATER FOR IRRIG STERILE 250 ML BOTTLE IR ONE (11:35)
[2021-11-19] MEDS ORDERED: WATER FOR IRRIG STERILE 1,000 ML BOTTLE ONE (11:35)
[2021-11-19] MEDS ORDERED: SODIUM CHLORIDE 0.9% 1000 ML 1,000 ML ONE (11:36)
[2021-11-19] MEDS ORDERED: ceFAZolin/Water 2 GM/20 ML 2 GM/20 ML SYRINGE IV ONE (11:41)
[2021-11-19] MEDS ORDERED: propofoL 200 MG/20 ML VIAL IV ONE (12:09)
--- NOTE | 2021-11-19 12:17 | Anesthesia Consultation ---
Anesthesia Consult and Med Hx Date of service: 11/19/21 - Airway Anesthetic Teeth Evaluation: Poor (multiple missing teeth) ROM Head & Neck: Adequate Mental/Hyoid Distance: Adequate Mallampati Class: Class II Intubation Access Assessment: Probably Good - Pre-Operative Health Status ASA Pre-Surgery Classification: ASA4 Proposed Anesthetic Plan: MAC - Cardiovascular System Hx Hypertension: Yes - Central Nervous System Hx Seizures: Yes CVA: Yes Hx Psychiatric Problems: Yes (non verbal, no appropriate response to commands) - Gastrointestinal Hx Gastroesophageal Reflux Disease: Yes (dysphagea)
--- NOTE | 2021-11-19 12:20 | Anesthesia Day of Surgery ---
Anesthesia Day of Surgery - Day of Surgery Patient Examined: Yes Patient H&P Reviewed: Yes Patient is NPO: Yes
--- NOTE | 2021-11-19 13:02 | Operative Report ---
Operative Report Operative Report: Date of procedure: Pre procedure diagnosis: Inability to swallow due to CVA Post procedure diagnosis: same Procedure: Esophagogastroduodenoscopy with percutaneous endoscopic gastrostomy Endoscopist: Zach Meade MD (Jenny) Medications: Per anesthesia- see separate records for details./ Ancef 2 gm IV Complications: none Estimated blood loss: None After careful discussion of the nature and purpose of the procedure, details of the technique, risks, benefits and alternatives consent was obtained from patient's family. The patient was placed in the left lateral decubitus position and medicated by anesthesia- see separate records for details. The tip of the olympus video upper scope was passed per orum under direct view through the mouth and into the esophagus, stomach and duodenum. The scope was advanced to the third portion of the duodenum without difficulty. The third portion and second portion of the duodenum were normal. The bulb revealed normal mucosa. The scope was withdrawn back into the stomach and the stomach gently insufflated with air. The antrum revealed normal mucosa. The scope was then retroflexed and partially withdrawn to inspect the proximal stomach. The cardia, fundus and body were normal. The stomach was insufflated and a suitable gastrostomy site selected by transillumination and percutaneous compression demonstrating good opposition of the stomach and abdominal wall. The abdomen was prepped and draped in sterile fashion and 1% lidocaine instilled at the optimal site. A small incision was made and the tissue spread with sterile hemostats. The needle and catheter were inserted percutaneously into the stomach without difficulty under direct view. The needle was withdrawn followed by insertion of the guidewire through the catheter. The guidewire was grasped by the snare and positioned by withdrawal of the scope. A [employer] 20 gauge gastrostomy tube was pulled into place from the abdominal side of the wire to a snug fit. The external bumper was applied and the site again dressed in sterile fashion. The scope was then withdrawn in the forward view. The EG junction was at 40 cm. The esophagus revealed mild esophagitis likely due to trauma from NG tube. A mildly obstructing distal esophageal ring. The procedure was well tolerated and the patient was observed in the GI recovery unit. IMPRESSION: 1. Mild distal esophagitis due to NG tube trauma. 2. Mildly obstructing esophageal ring in the distal esophagus. 3. S/p Percutaneous Endoscopic gastrostomy successfully. 4. Otherwise, normal exam. Plan: 1. Can use PEG tube for meds in 4 hours and feeding in 6 hours. 2. Aspiration precautions with HOB elevated. 3. PPI 40 mg daily. Zach Meade MD (Jenny) [facility]
--- NOTE | 2021-11-19 14:01 | Post Anesthesia Evaluation ---
- Post Anesthesia Evaluation Patient Participated: Yes Airway Patent: Yes Stable Respiratory Function: Yes Nausea/Vomiting: No Temp > 96.8F: Yes Pain Manageable: Yes Adequeate Hydration: Yes Anesthesia Complications: No
[2021-11-19] MEDS ORDERED: SODIUM BICARBONATE 325 MG TAB FEEDTUBE PRN (16:16)
[2021-11-19] MEDS ORDERED: LIPASE 10,500/PROTEASE 25,000/AMYLASE 43,750 (UNITS) DR CAP FEEDTUBE PRN (16:16)
[2021-11-19] MEDS ORDERED: SIMPLE SYRUP 15 ML FEEDTUBE PRN ×2 (16:16)
[2021-11-19] MEDS: LANSOPRAZOLE 30 MG SOLUTAB FEEDTUBE SCH (20:11)
[2021-11-20] MEDS ORDERED: amLODIPine 10 MG TAB PO SCH (07:37)
[2021-11-20] MEDS: POLYETHYLENE GLYCOL 3350 17 GM POWDER PO SCH (09:38)
[2021-11-20] MEDS: LOSARTAN 50 MG TAB PO SCH (09:38)
[2021-11-20] MEDS: ASPIRIN 325 MG TAB PO SCH (09:38)
[2021-11-20] MEDS: carvediloL 12.5 MG TAB PO SCH ×2 (09:38→21:33)
[2021-11-20] MEDS: LANSOPRAZOLE 30 MG SOLUTAB FEEDTUBE SCH (09:38)
[2021-11-20] MEDS: VALPROIC ACID 250 MG/5 ML ORAL LIQD FEEDTUBE SCH ×2 (09:38→21:34)
[2021-11-20] MEDS ORDERED: amLODIPine 5 MG TAB PO SCH (10:00)
--- NOTE | 2021-11-20 12:45 | Progress Note ---
Assessment and Plan Assessment and plan: #Acute ischemic CVA #Acute metabolic encephalopathyresolved Patient evaluated by telemetry neurology in the ED, and she was not found to be a candidate for tPA. Unremarkable CT head noncontrast. 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 MRI brain without contrast revealing "tiny focus of acute infarct in the left frontal opercular region. No hemorrhage or adverse mass-effect." TTE (11/10/2021) revealing EF 55-60% with normal-sized LV, mild concentric LVH, septal hypertrophy, abnormal diastolic function, normal-sized RV, normal RV systolic function, normal LA size, normal RA, no evidence of ASD or PFO. Hemoglobin A1c 5.4. continue ASA + statin 40 mg daily -Cardiology consulted for RICARDO, will not be completed at this time due to patients mental status Physical therapy, Occupational Therapy: recommending subacute rehab; pending [facility] authorization #Neurogenic dysphagia Speech therapy consulted; recommending patient remain n.p.o. due to high aspiration risk. Continue tube feeds; status post PEG tube placement on 11/19/2021. - GI consulted, assistance appreciated #Hypertension - home medications: Amlodipine 10 mg daily, Coreg 12.5 mg twice daily, losartan 100 mg daily, and clonidine patch 0.5 mg - current medications: Amlodipine 10 mg daily, Coreg 12.5 mg twice daily, losartan 100 mg daily, and clonidine patch 0.5 mg + PRN hydralazine - SBP goal <160 and DBP goal <90 while inpatient - continue to monitor #Seizure disorder continue valproic acid 500 mg twice daily -EEG ordered by Neurology #Ground-level fall #Occipital scalp laceration Unremarkable imaging. Laceration repaired in the ED with jarrett. Continue analgesics as needed. #Mild protein caloric malnutrition Albumin 3.0 Currently holding dietary supplementation as the patient is n.p.o. and pending speech evaluation in the setting of acute ischemic CVA #Advanced care planning -Disease education, care plan, diagnosis, prognosis discussed with next of kin Mindy. Family understands and acknowledges current plan. -Time: +30 minutes #Discharge planning - Patient is pending authorization from [facility] - Case management has been made aware. - Discharge is tentatively 24-48 hours Disposition Plan: Pending [facility] authorization Total Time Spent with Patient (Minutes): 45 minutes History Interval history: Patient underwent PEG tube placement by gastroenterology yesterday. Patient tolerated the procedure well. Hospitalist Physical - Constitutional Vitals: Temp Pulse Resp BP Pulse Ox 98.6 F 88 18 100/61 96 11/20/21 11:52 11/20/21 11:52 11/20/21 03:23 11/20/21 11:52 11/20/21 11:52 General appearance: Present: no acute distress, well-nourished, other (Nonverbal) - EENT Eyes: Present: PERRL, EOM intact ENT: hearing intact, clear oral mucosa, dentition normal - Neck Neck: Present: supple, normal ROM - Respiratory Respiratory effort: normal Respiratory: bilateral: CTA - Cardiovascular Rhythm: regular Heart Sounds: Present: S1 & S2 - Extremities Extremities: no ischemia, pulses intact, pulses symmetrical, No edema, normal temperature, normal color Peripheral Pulses: within normal limits - Abdominal General gastrointestinal: soft, tender (Appropriate tenderness at PEG tube site), non-distended, normal bowel sounds, other (New PEG tube placed) - Integumentary Integumentary: Present: clear, warm, dry - Psychiatric Psychiatric: appropriate mood/affect, other (Nonverbal) - Neurologic Neurologic: CNII-XII intact, other (Severe weakness of the left and right side from history of multiple strokes) - Allied Health Allied health notes reviewed: nursing, case management HEART Score - HEART Score Troponin: Troponin T < 0.010 ng/mL (0.00-0.029) 11/09/21 23:33 Results - Labs CBC & Chem 7: 11/19/21 05:16 11/19/21 05:16 Labs: Laboratory Last Values WBC 6.7 K/mm3 (4.5-11.0) 11/19/21 05:16 RBC 3.29 M/mm3 (3.65-5.03) L 11/19/21 05:16 Hgb 10.2 gm/dl (10.1-14.3) 11/19/21 05:16 Hct 30.3 % (30.3-42.9) 11/19/21 05:16 MCV 92 fl (79-97) 11/19/21 05:16 MCH 31 pg (28-32) 11/19/21 05:16 MCHC 34 % (30-34) 11/19/21 05:16 RDW 21.3 % (13.2-15.2) H 11/19/21 05:16 Plt Count 268 K/mm3 (140-440) 11/19/21 05:16 Lymph % (Auto) 29.3 % (13.4-35.0) 11/09/21 23:33 [place] % (Auto) 8.0 % (0.0-7.3) H 11/09/21 23:33 Eos % (Auto) 1.9 % (0.0-4.3) 11/09/21 23: Baso % (Auto) 0.2 % (0.0-1.8) 11/09/21 23:33 Lymph # (Auto) 2.7 K/mm3 (1.2-5.4) 11/09/21 23:33 [place] # (Auto) 0.7 K/mm3 (0.0-0.8) 11/09/21 23:33 Eos # (Auto) 0.2 K/mm3 (0.0-0.4) 11/09/21 23:33 Baso # (Auto) 0.0 K/mm3 (0.0-0.1) 11/09/21 23:33 Add Manual Diff Complete 11/11/21 04:00 Total Counted 100 11/11/21 04:00 Seg Neutrophils % 60.6 % (40.0-70.0) 11/09/21 23:33 Seg Neuts % (Manual) 70.0 % (40.0-70.0) 11/11/21 04:00 Band Neutrophils % 1.0 % 11/11/21 04:00 Lymphocytes % (Manual) 20.0 % (13.4-35.0) 11/11/21 04:00 Reactive Lymphs % (Man) 0 % 11/11/21 04:00 Monocytes % (Manual) 9.0 % (0.0-7.3) H 11/11/21 04:00 Eosinophils % (Manual) 0 % (0.0-4.3) 11/11/21 04:00 Basophils % (Manual) 0 % (0.0-1.8) 11/11/21 04:00 Metamyelocytes % 0 % 11/11/21 04:00 Myelocytes % 0 % 11/11/21 04:00 Promyelocytes % 0 % 11/11/21 04:00 Blast Cells % 0 % 11/11/21 04:00 Nucleated RBC % Not Reportable 11/11/21 04:00 Seg Neutrophils # 5.7 K/mm3 (1.8-7.7) 11/09/21 23:33 Seg Neutrophils # Man 7.0 K/mm3 (1.8-7.7) 11/11/21 04:00 Band Neutrophils # 0.1 K/mm3 11/11/21 04:00 Lymphocytes # (Manual) 2.0 K/mm3 (1.2-5.4) 11/11/21 04:00 Abs React Lymphs (Man) 0.0 K/mm3 11/11/21 04:00 Monocytes # (Manual) 0.9 K/mm3 (0.0-0.8) H 11/11/21 04:00 Eosinophils # (Manual) 0.0 K/mm3 (0.0-0.4) 11/11/21 04:00 Basophils # (Manual) 0.0 K/mm3 (0.0-0.1) 11/11/21 04:00 Metamyelocytes # 0.0 K/mm3 11/11/21 04:00 Myelocytes # 0.0 K/mm3 11/11/21 04:00 Promyelocytes # 0.0 K/mm3 11/11/21 04:00 Blast Cells # 0.0 K/mm3 11/11/21 04:00 WBC Morphology Not Reportable 11/11/21 04:00 Hypersegmented Neuts Not Reportable 11/11/21 04:00 Hyposegmented Neuts Not Reportable 11/11/21 04:00 Hypogranular Neuts Not Reportable 11/11/21 04:00 Smudge Cells Not Reportable 11/11/21 04:00 Toxic Granulation Not Reportable 11/11/21 04:00 Toxic Vacuolation Not Reportable 11/11/21 04:00 Dohle Bodies Not Reportable 11/11/21 04:00 Pelger-Huet Anomaly Not Reportable 11/11/21 04:00 Keyonna Rods Not Reportable 11/11/21 04:00 Platelet Estimate Consistent w auto 11/11/21 04:00 Clumped Platelets Not Reportable 11/11/21 04:00 Plt Clumps, EDTA Not Reportable 11/11/21 04:00 Large Platelets Not Reportable 11/11/21 04:00 Giant Platelets Not Reportable 11/11/21 04:00 Platelet Satelliting Not Reportable 11/11/21 04:00 Plt Morphology Comment Not Reportable 11/11/21 04:00 RBC Morphology Not Reportable 11/11/21 04:00 Dimorphic RBCs Not Reportable 11/11/21 04:00 Polychromasia Not Reportable 11/11/21 04:00 Hypochromasia 1+ 11/11/21 04:00 Poikilocytosis Not Reportable 11/11/21 04:00 Anisocytosis 3+ 11/11/21 04:00 Microcytosis Not Reportable 11/11/21 04:00 Macrocytosis Not Reportable 11/11/21 04:00 Spherocytes Not Reportable 11/11/21 04:00 Pappenheimer Bodies Not Reportable 11/11/21 04:00 Sickle Cells Not Reportable 11/11/21 04:00 Target Cells Not Reportable 11/11/21 04:00 Tear Drop Cells Not Reportable 11/11/21 04:00 Ovalocytes Not Reportable 11/11/21 04:00 Helmet Cells Not Reportable 11/11/21 04:00 [place] Bodies Not Reportable 11/11/21 04:00 [place] Rings Not Reportable 11/11/21 04:00 [place] Cells Not Reportable 11/11/21 04:00 Bite Cells Not Reportable 11/11/21 04:00 Crenated Cell Not Reportable 11/11/21 04:00 Elliptocytes Not Reportable 11/11/21 04:00 Acanthocytes (Spur) 1+ 11/11/21 04:00 Rouleaux Not Reportable 11/11/21 04:00 Hemoglobin C Crystals Not Reportable 11/11/21 04:00 Schistocytes Not Reportable 11/11/21 04:00 Malaria parasites Not Reportable 11/11/21 04:00 Quinn Bodies Not Reportable 11/11/21 04:00 Hem Pathologist Commnt No 11/11/21 04:00 PT 15.3 Sec. (12.2-14.9) H 11/09/21 23:33 INR 1.09 (0.87-1.13) 11/09/21 23:33 APTT 26.4 Sec. (24.2-36.6) 11/09/21 23:33 Thrombin Time 18.4 Sec. (15.1-19.6) 11/09/21 23:33 Sodium 133 mmol/L (137-145) L 11/19/21 05:16 Potassium 4.5 mmol/L (3.6-5.0) 11/19/21 05:16 Chloride 99.0 mmol/L (98-107) 11/19/21 05:16 Carbon Dioxide 24 mmol/L (22-30) 11/19/21 05:16 Anion Gap 15 mmol/L 11/19/21 05:16 BUN 26 mg/dL (7-17) H 11/19/21 05:16 Creatinine 0.8 mg/dL (0.6-1.2) 11/19/21 05:16 Estimated GFR > 60 ml/min 11/19/21 05:16 BUN/Creatinine Ratio 33 % 11/19/21 05:16 Glucose 94 mg/dL (65-100) 11/19/21 05:16 POC Glucose 137 mg/dL (70-105) H 11/19/21 23:04 Hemoglobin A1c 5.4 % (4-6) 11/11/21 11:50 Calcium 9.1 mg/dL (8.4-10.2) 11/19/21 05:16 Total Bilirubin 0.20 mg/dL (0.1-1.2) 11/09/21 23:33 AST 29 units/L (5-40) 11/09/21 23:33 ALT 41 units/L (7-56) 11/09/21 23:33 Alkaline Phosphatase 51 units/L (35-129) 11/09/21 23:33 Ammonia 19.0 umol/L (25-60) L 11/14/21 09:39 Total Creatine Kinase 73 units/L (30-135) 11/09/21 23:33 CK-MB (CK-2) 3.0 ng/mL (0.0-4.0) 08/12/22 23:33 CK-MB (CK-2) Rel Index 4.1 (0-4) H 11/09/21 23:33 Troponin T < 0.010 ng/mL (0.00-0.029) 11/09/21 23:33 Total Protein 5.9 g/dL (6.3-8.2) L 11/09/21 23:33 Albumin 3.0 g/dL (3.9-5) L 11/09/21 23:33 Albumin/Globulin Ratio 1.0 % 11/09/21 23:33 Triglycerides 81 mg/dL (2-149) 11/10/21 11:15 Cholesterol 195 mg/dL (50-199) 11/10/21 11:15 LDL Cholesterol Direct 120 mg/dL (50-130) 11/10/21 11:15 HDL Cholesterol 47 mg/dL (40-59) 11/10/21 11:15 Cholesterol/HDL Ratio 4.14 % 11/10/21 11:15 Valproic Acid 46.7 ug/mL (50-100) L 11/14/21 09:39 SARS-CoV-2 (PCR) Negative (Negative) 11/16/21 12:34 [place]/IV: Voiding Method External Female Catheter Active Medications - Current Medications Current Medications: Generic Name Dose Route Start Last Admin Trade Name Freq PRN Reason Stop Dose Admin Acetaminophen 650 mg 11/10/21 03:15 11/13/21 14:03 Acetaminophen 325 Mg Tab PO 650 mg Q4H PRN Administration Pain MILD(1-3)/Fever >100.5/PEREZ Albuterol 2.5 mg 11/10/21 10:37 Albuterol 2.5 Mg/3 Ml Nebu IH Q4HRT PRN Shortness Of Breath Amlodipine Besylate 5 mg 11/20/21 10:00 Amlodipine 5 Mg Tab PO QDAY [facility] Lipase/Protease/Amylase 1 each 11/19/21 16:16 Lipase 10,500/Protease 25,000/Amylase 43,750 (Units) Dr Garcia FEEDTUBE PRN PRN For Clogged Feeding Tube Aspirin 325 mg 11/10/21 10:00 11/20/21 09:38 Aspirin 325 Mg Tab PO 325 mg QDAY HUNTER Administration Atorvastatin Calcium 40 mg 11/19/21 22:00 11/19/21 21:55 Atorvastatin 20 Mg Tab PO 40 mg QHS HUNTER Administration Carvedilol 12.5 mg 11/11/21 10:00 11/20/21 09:38 Carvedilol 12.5 Mg Tab PO 12.5 mg BID HUNTER Administration Hydralazine HCl 10 mg 11/10/21 20:26 11/19/21 20:19 Hydralazine 20 Mg/1 Ml Inj IV 10 mg Q4HR PRN Administration Blood Pressure Lansoprazole 30 mg 11/19/21 14:00 11/20/21 09:38 Lansoprazole 30 Mg Solutab FEEDTUBE 30 mg QDAY HUNTER Administration Losartan Potassium 100 mg 11/12/21 10:00 11/20/21 09:38 Losartan 50 Mg Tab PO 100 mg QDAY HUNTER Administration Morphine Sulfate 2 mg 11/10/21 03:15 Morphine 2 Mg/1 Ml Inj IV Q4H PRN Pain, Moderate (4-6) Morphine Sulfate 4 mg 11/10/21 03:15 Morphine 4 Mg/1 Ml Inj IV Q4H PRN Pain , Severe (7-10) Ondansetron HCl 4 mg 11/10/21 03:15 Ondansetron 4 Mg/2 Ml Inj IV Q8H PRN Nausea And Vomiting Polyethylene Glycol 17 gm 11/15/21 12:00 11/20/21 09:38 Polyethylene Glycol 3350 17 Gm Powder PO 17 gm QDAY HUNTER Administration Simple Syrup 15 ml 11/19/21 16:16 Simple Syrup 15 Ml FEEDTUBE PRN PRN Hypoglycemia Simple Syrup 30 ml 11/19/21 16:16 Simple Syrup 15 Ml FEEDTUBE PRN PRN Hypoglycemia Sodium Bicarbonate 325 mg 11/19/21 16:16 Sodium Bicarbonate 325 Mg Tab FEEDTUBE PRN PRN For Clogged Feeding Tube Sodium Chloride 10 ml 11/10/21 10:00 11/20/21 09:38 Sodium Chloride 0.9% 10 Ml Flush Syringe IV 10 ml BID HUNTER Administration Sodium Chloride 10 ml 11/10/21 03:15 Sodium Chloride 0.9% 10 Ml Flush Syringe IV PRN PRN LINE FLUSH Valproic Acid 500 mg 11/12/21 14:00 11/20/21 09:38 Valproic Acid 250 Mg/5 Ml Oral Liqd FEEDTUBE 500 mg BID HUNTER Administration Nutrition/Malnutrition Assess - Dietary Evaluation Nutrition/Malnutrition Findings: Nutrition Notes Start: 11/11/21 10:10 Freq: Status: Active Protocol: Document 11/19/21 15:55 RAY (Rec: 11/19/21 16:15 RAY [id number]) Nutrition Notes Initial or Follow up Brief Note Current Diagnosis Hypertension,Malnutrition, Stroke Other Pertinent Diagnosis s/p PEG-tube Placement, Seizures, Metabolic Encephalopathy, Dysphagia. Current Diet NPO (since 11/19 00:01), TF- Jevity 1.2 Allan @ 55 ml/hr ( from D 11/19). Height 5 ft 5 in Weight 57.9 kg [place] Body Weight (kg) 56.81 BMI 21.2 Weight change and time frame 1.5 Kg body weight gain reported in 3 days. Weight Status Appropriate Subjective/Other Information RD consult for amrit Best/Favian on TF tolerance/continuation. Pt is currently on NPO. Procedure on 11/19: EGD w/PEG- tube placement, well tolerated ; TF will start through PEG- tube @ 19:00 tonight, according to RN notes. Pt is on Room Air, O2 saturation @ 99%, according to Physical Assessment History notes. Pt will be discharged to SNF after PEG-tube clearance, according to Progress notes. Percent of energy/protein needs met: Prescribed TF-Jevity 1.2 Allan @ 55 ml/hr provides for energy/ protein needs (1,579 Kcal/73 g ) during LOS, 100% Kcal; 109% AA. #1 Nutrition Diagnosis Swallowing difficulty Comments: Procedure on 11/19: EGD w/PEG- tube placement, well tolerated ; TF will start through PEG- tube @ 19:00 tonight, according to RN notes. Diagnosis Progress(for reassessment Continues documentation) Is patient on ventilator? No Is Patient Ambulatory and/or Out of Bed No REE-([facility]-confined to bed) 1349.496 Kcal/Kg value to use for calculation 27 Approximate Energy Requirements Using 1563 kcal/Kg Calculation Used for Recommendations Kcal/kg Additional Notes Protein: 1-1.2 g/Kg ABW; 56-67 g/day. Fluids: 1 ml/Kcal, or as per MD. Nutrition Intervention Nutrition Support: Resume TF-Jevity 1.2 Allan @ 55 ml/hr. Flush: 90 ml water Q 4 hr, or as per MD. Kcal 1,579 Protein (gm) 73 Carbohydrates (gm) 223 Fat (gm) 52 Fluid (mL) 1,062 Fiber (gm) 24 % RDI: 100% Kcal; 109% AA. Goal #1 Provide at least 75% of energy /protein needs through Enteral Feeding during LOS. Follow-Up By: 11/26/21 Additional Comments Continue monitoring TF tolerance and BM.
--- NOTE | 2021-11-20 19:07 | Gastroenterology Progress Note ---
Assessment and Plan # Neurogenic dysphagia/oropharyngeal dysphagia # CVA -s/p PEG tube placement on 11/19/2021 - PEG tube bumper loosened by bedside today - continue with aspiration precautions. - will sign off. - Patient Problems (1) Neurogenic dysphagia Current Visit: Yes Status: Acute Subjective Date of service: 11/20/21 Interval history: Patient tolerating tube feeds well. No nausea vomiting. Objective - Constitutional Vitals: Temp Pulse Resp BP Pulse Ox 98.3 F 87 18 92/59 100 11/20/21 16:10 11/20/21 16:10 11/20/21 03:23 11/20/21 16:10 11/20/21 16:10 General appearance: no acute distress - Neck Neck: supple - Respiratory Respiratory effort: normal - Cardiovascular Rhythm: regular Heart Sounds: Present: S1 & S2 - Gastrointestinal General gastrointestinal: Present: soft, non-tender, non-distended - Integumentary Integumentary: Present: clear, warm - Labs CBC & Chem 7: 11/19/21 05:16 11/19/21 05:16 Labs: Laboratory Results - last 24 hr 11/19/21 11/20/21 11/20/21 23:04 05:34 11:54 POC Glucose 137 H 118 H 144 H SARS-CoV-2 (PCR) 11/20/21 11/20/21 17:07 Unknown POC Glucose 132 H SARS-CoV-2 (PCR) Negative
[2021-11-21] MEDS ORDERED: carvediloL 12.5 MG TAB PO SCH (07:44)
[2021-11-21] MEDS: ASPIRIN 325 MG TAB PO SCH (09:28)
[2021-11-21] MEDS: POLYETHYLENE GLYCOL 3350 17 GM POWDER PO SCH (09:29)
[2021-11-21] MEDS: VALPROIC ACID 250 MG/5 ML ORAL LIQD FEEDTUBE SCH (09:29)
[2021-11-21] MEDS: LANSOPRAZOLE 30 MG SOLUTAB FEEDTUBE SCH (09:29)
[2021-11-21] MEDS ORDERED: LOSARTAN 50 MG TAB PO SCH (10:00)
[2021-11-21] MEDS ORDERED: carvediloL 6.25 MG TAB PO SCH (10:00)
[2021-11-21 11:41] VITALS: BP 114/84
--- NOTE | 2021-11-21 12:09 | Discharge Summary ---
Providers - Providers Date of Admission: 11/10/21 03:15 Date of discharge: 11/21/21 Attending physician: ARACELIS TAVERAS MD 11/10/21 03:15 Consult to Physician [CONS] Routine Comment: Consulting Provider: SAMMI DEL REAL Physician Instructions: Reason For Exam: cva Occupational Therapy Evaluate and Treat [CONS] Routine Comment: Reason For Exam: Neuro deficits Physical Therapy Evaluation and Treat [CONS] Routine Comment: Reason For Exam: Neuro deficits 11/10/21 09:36 Speech Therapy Evaluation and Treat [CONS] Routine Reason For Exam: Stroke workup 11/11/21 08:46 Consult to Dietitian/Nutrition [CONS] Routine Physician Instructions: Reason For Exam: Reason for Consult: Write/Manage Tube Feeding 11/12/21 07:36 Consult to Dietitian/Nutrition [CONS] Routine Physician Instructions: Assess nutrtn needs, initiate, modify, manage TF Reason For Exam: Reason for Consult: Write/Manage Tube Feeding Reason for Consult: Write/Manage Tube Feeding 11/12/21 13:41 Consult to Physician [CONS] Routine Comment: Consulting Provider: ADEBAYO CORTEZ Physician Instructions: Reason For Exam: Acute ischemic CVA 11/13/21 08:05 Consult to Physician [CONS] Routine Comment: Consulting Provider: RAJAT SELF Physician Instructions: Reason For Exam: RICARDO as recommended by Neurology 11/14/21 10:43 Consult to Physician [CONS] Routine Comment: Consulting Provider: ABHAY BRAVO Physician Instructions: Reason For Exam: possible PEG tube placement Primary care physician: [facility] MD Hospitalization Reason for admission: Acute ischemic CVA, acute metabolic encephalopathy Condition: Critical Pertinent studies: Reviewed. Procedures: PEG tube placement Hospital course: Patient is a 66-year-old female past medical history of hypertension, multiple acute ischemic CVA, vitamin D deficiency, insomnia, seizure disorder who presented to the ED after experiencing a ground-level fall resulting in a head laceration (repaired in the ED prior to being sent home) who returned due to acute metabolic encephalopathy associated with facial droop. Stroke alert was called, and the patient was evaluated by tele-neurology. Initially the patient was recommended to receive tPA; however patient was unable to receive an MRI brain due to there not being a player piano technician until approximately 7 AM the next morning. Due to this, the patient would end up being outside the window for tPA, and she did not receive it. Patient was started on aspirin 325 mg, and admitted to the floor for further management. Patient had unremarkable CT head noncontrast. 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 MRI brain revealed "tiny focus of acute infarct in the left frontal opercular region. No hemorrhage or adverse mass- effect." TTE revealed an EF 55-60% with no evidence of ASD or PFO. Patient was started on atorvastatin 40 mg daily. Physical therapy and Occupational Therapy recommended subacute rehab, and she has since been accepted at [facility]. Patient suffered from neurogenic dysphagia as a result of her acute ischemic CVA, and she received PEG tube placement on 11/19/2021. Patient is medically clear for discharge. Disposition: 01 HOME / SELF CARE / HOMELESS Final Discharge Diagnosis (Prints w/discharge instructions): Acute ischemic CVA, acute metabolic encephalopathy, neurogenic dysphagia, hypertension, seizure disorder, ground-level fall, occipital scalp laceration status postrepair, mild protein caloric malnutrition Time spent for discharge: 45 min Core Measure Documentation - Palliative Care Palliative Care/ Comfort Measures: Not Applicable - Core Measures Any of the following diagnoses?: stroke - Stroke Discharge Requirements Statin for LDL = or >70 mg/dl on DC: Yes Anticoag for atrial fib/atrial flutter: Not Applicable Antithrombotic for ischemic stroke: Yes Exam - Constitutional Vitals: Temp Pulse Resp BP Pulse Ox 97.6 F 86 18 114/84 97 11/21/21 11:39 11/21/21 11:39 11/21/21 11:39 11/21/21 11:39 11/21/21 11:39 General appearance: Present: no acute distress, other (Nonverbal) - EENT Eyes: Present: PERRL, EOM intact ENT: hearing intact, clear oral mucosa, dentition normal - Neck Neck: Present: supple, normal ROM - Respiratory Respiratory effort: normal - Cardiovascular Rhythm: regular Heart Sounds: Present: S1 & S2 - Extremities Extremities: no ischemia, pulses intact, pulses symmetrical, No edema, normal temperature, normal color Peripheral Pulses: within normal limits - Abdominal General gastrointestinal: Present: soft, tender (Appropriate tenderness that new PEG tube site), non-distended, normal bowel sounds, other (PEG tube in place) Female genitourinary: Present: deferred - Rectal Rectal Exam: deferred - Integumentary Integumentary: Present: clear, warm, dry - Musculoskeletal Musculoskeletal: other (Generalized weakness on both sides (right > left)) - Neurologic Neurologic: CNII-XII intact - Allied Health Allied health notes reviewed: nursing, case management Plan Activity: advance as tolerated Diet: low salt, other (Tube feeds) Additional Instructions: Patient is a 66-year-old female past medical history of hypertension, multiple acute ischemic CVA, vitamin D deficiency, insomnia, seizure disorder who presented to the ED after experiencing a ground-level fall resulting in a head laceration (repaired in the ED prior to being sent home) who returned due to acute metabolic encephalopathy associated with facial droop. Stroke alert was called, and the patient was evaluated by tele-neurology. Initially the patient was recommended to receive tPA; however patient was unable to receive an MRI brain due to there not being a player piano technician until approximately 7 AM the next morning. Due to this, the patient would end up being outside the window for tPA, and she did not receive it. Patient was started on aspirin 325 mg, and admitted to the floor for further management. Patient had unremarkable CT head noncontrast. 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 MRI brain revealed "tiny focus of acute infarct in the left frontal opercular region. No hemorrhage or adverse mass- effect." TTE revealed an EF 55-60% with no evidence of ASD or PFO. Patient was started on atorvastatin 40 mg daily. Physical therapy and Occupational Therapy recommended subacute rehab, and she has since been accepted at [facility]. Patient suffered from neurogenic dysphagia as a result of her acute ischemic CVA, and she received PEG tube placement on 11/19/2021. Patient is medically clear for discharge. Care Plan Goals: Patient is medically clear for discharge. Assessment: Patient is a 66-year-old female past medical history of hypertension, multiple acute ischemic CVA, vitamin D deficiency, insomnia, seizure disorder who presented to the ED after experiencing a ground-level fall resulting in a head laceration (repaired in the ED prior to being sent home) who returned due to acute metabolic encephalopathy associated with facial droop. Stroke alert was called, and the patient was evaluated by tele-neurology. Initially the patient was recommended to receive tPA; however patient was unable to receive an MRI brain due to there not being a player piano technician until approximately 7 AM the next morning. Due to this, the patient would end up being outside the window for tPA, and she did not receive it. Patient was started on aspirin 325 mg, and admitted to the floor for further management. Patient had unremarkable CT head noncontrast. 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 MRI brain revealed "tiny focus of acute infarct in the left frontal opercular region. No hemorrhage or adverse mass- effect." TTE revealed an EF 55-60% with no evidence of ASD or PFO. Patient was started on atorvastatin 40 mg daily. Physical therapy and Occupational Therapy recommended subacute rehab, and she has since been accepted at [facility]. Patient suffered from neurogenic dysphagia as a result of her acute ischemic CVA, and she received PEG tube placement on 11/19/2021. Patient is medically clear for discharge. Follow up with: JULIO CALDERON MD [Staff Physician] - 3-5 Days Prescriptions: AtorvaSTATin [Lipitor] 40 mg PO QHS #30 tab Aspirin 325 mg PO QDAY #30 tablet carvediloL [Coreg] 6.25 mg PO BID #30 tablet Losartan [Cozaar] 50 mg PO QDAY #30 tablet VALPROIC ACID Liq [DepaKENE Liq] 500 mg PO BID #1 bottle polyethylene glycoL 3350 [Miralax 3350] 17 gm PO QDAY #30 powd.pack Lansoprazole Solutab [Prevacid Solutab] 30 mg FEEDTUBE QDAY #30 tab.jeanette
== END 2021-11-21 17:22 | DRG 64 ==
LOC: ED 22:51 → 4A 11-10 03:15
PROVIDERS: ADMIT Hospitalist; ATTEND Student in an Organized Health Care Education/Training Program
PROC: 0DH63UZ Insertion of Feeding Device into Stomach, Percutaneous Approach (ICD-10-PCS; principal; 2021-11-19)
DX: I63.9 Cerebral infarction, unspecified (principal); G93.41 Metabolic encephalopathy; E44.1 Mild protein-calorie malnutrition; Z20.822 Contact with and (suspected) exposure to COVID-19; I10 Essential (primary) hypertension; S01.01XA Laceration without foreign body of scalp, initial encounter; W18.39XA Other fall on same level, initial encounter; Y93.89 Activity, other specified; Y92.89 Other specified places as the place of occurrence of the external cause; Y99.8 Other external cause status; Z68.21 Body mass index [BMI] 21.0-21.9, adult; G40.901 Epilepsy, unspecified, not intractable, with status epilepticus; R13.19 Other dysphagia; Z79.82 Long term (current) use of aspirin; Z82.49 Family history of ischemic heart disease and other diseases of the circulatory system; Z79.899 Other long term (current) drug therapy
CPT/HCPCS: 36415; 70450; 70496; 70498; 70544; 70551; 71045; 74018; 80048; 80053; 80061; 80164; 82140; 82550; 82553; 82962; 83036; 84484; 85007; 85025; 85027; 85610; 85670; 85730; 93005; 93306; 94640; 95819; 99283; 99284; G0378; J3490; J7060; C8929; J0360; J0690; J1953; J2704; J7030; J7042; Q9967; U0003